=== PATIENT | female | born 1950 | race Caucasian/White ===

== ENCOUNTER 2018-02-28 10:15 | Observation (INO) | payer OTHER ==
[2018-02-28 10:40] VITALS: BMI 47.0
--- NOTE | 2018-02-28 11:07 | PDOC ---
History of Present Illness - General History Source: Patient Exam Limitations: No Limitations - History of Present Illness Initial Comments: This is a 67 year old female with a significant past medical history of a right total knee replacement and HTN, who presents to the emergency department today complaining of chronic RLE pain that has progressively worsen in the past 4 days. Patient notes she had a total knee replacement in [address] Boogie, and has had complications since. Patient notes she had an infection in her right knee following her surgery, and Dr. Ordoñez placed an IVAC on her. She states Dr. Briseno placed a temporary spacer, and upon placing a permanent, she was no longer able to walk unassisted. 5 days ago, patient states she began to experience more significant pain than usual, and went from using a walker to ambulate to not being able to walk at all. Patient complains that the pain is felt from her right groin, and radiates into her right hip and right knee. Patient presents in a wheelchair today. Patient denies any recent trauma or injuries. Allergies: NKDA Surgical hx: TKR in 2007 Social hx: former smoker PCP: Dr. Bullard 02/28/18 11:52 <Mame Mitchell - Last Filed: 02/28/18 21:19> <Nemo Welsh - Last Filed: 03/04/18 21:49> - General Chief Complaint: Pain, Acute Stated Complaint: LEG PAIN Time Seen by Provider: 02/28/18 11:06 Past History <Mame Mitchell - Last Filed: 02/28/18 21:19> - Past Medical History Anemia: Yes Asthma: No Cancer: No Cardiac Disorders: No CVA: No COPD: No CHF: No Dementia: No Diabetes: No GI Disorders: Yes (GERD) Disorders: No HTN: Yes Hypercholesterolemia: No Liver Disease: No Seizures: No Thyroid Disease: No - Surgical History Abdominal Surgery: No Appendectomy: No Cardiac Surgery: No Cholecystectomy: No Lung Surgery: No Neurologic Surgery: No Orthopedic Surgery: Yes (R KNEE REPLACEMENT 01/26) - Immunization History Immunization Up to Date: Yes - Suicide/Smoking/Psychosocial Hx Smoking Status: No Smoking History: Never smoked Have you smoked in the past 12 months: No Number of Cigarettes Smoked Daily: 0 If you are a former smoker, when did you quit?: 2007 Information on smoking cessation initiated: No Hx Alcohol Use: No Drug/Substance Use Hx: No Substance Use Type: None Hx Substance Use Treatment: No <Nemo Welsh - Last Filed: 03/04/18 21:49> - Past Medical History Allergies/Adverse Reactions: Allergies Allergy/AdvReac Type Severity Reaction Status Date / Time No Known Drug Allergies Allergy Verified 02/28/18 10:35 Home Medications: Ambulatory Orders Doxycycline Monohydrate [Monodox] 100 mg PO Q12H 03/01/18 Hydrochlorothiazide [Hctz -] 25 mg PO DAILY 03/02/18 Ibuprofen 400 mg PO BID PRN #20 tablet 03/04/18 Polyethylene Glycol 3350 [Miralax 119 gm Btl -] 17 gm PO BID #1 bottle 03/04/18 Sennosides [Senna -] 1 tab PO HS PRN #30 tablet 03/04/18 Tramadol HCl [Ultram] 50 mg PO TID #9 tablet MDD 3 03/04/18 Review of Systems - Review of Systems Able to Perform ROS?: Yes Comments:: 02/28/18 11:56 GENERAL/CONSTITUTIONAL: No fever or chills. No weakness. HEAD, EYES, EARS, NOSE AND THROAT: No change in vision. No ear pain or discharge. No sore throat. CARDIOVASCULAR: No chest pain or shortness of breath. RESPIRATORY: No cough, wheezing, or hemoptysis. GASTROINTESTINAL: No nausea, vomiting, diarrhea or constipation. GENITOURINARY: No dysuria, frequency, or change in urination. MUSCULOSKELETAL: +RLE pain +right knee pain No neck or back pain. SKIN: No rash NEUROLOGIC: No headache, vertigo, loss of consciousness, or change in strength/ sensation. ENDOCRINE: No increased thirst. No abnormal weight change. HEMATOLOGIC/LYMPHATIC: No anemia, easy bleeding, or history of blood clots. ALLERGIC/IMMUNOLOGIC: No hives or skin allergy. <Mame Mitchell - Last Filed: 02/28/18 21:19> *Physical Exam - Vital Signs Last Vital Signs Temp Pulse Resp BP Pulse Ox 79 16 132/68 100 02/28/18 10:36 02/28/18 10:36 02/28/18 10:36 02/28/18 10:36 - Physical Exam Comments: GENERAL: Awake, alert, and fully oriented, in no acute distress. +able to bear weight and transfer from chair to bed with difficulty. HEAD: No signs of trauma EYES: PERRLA, EOMI, sclera anicteric, conjunctiva clear NECK: Normal ROM, supple, no lymphadenopathy, JVD, or masses. ABDOMEN: Soft, nontender, normoactive bowel sounds. No guarding, no rebound. No masses EXTREMITIES:+pain with right knee flexion. No pain with right hip rotation or flexion. No tenderness to palpation over the right hip or right knee. No deformities at the right hip or right knee. No edema. No clubbing or cyanosis. No cords, or erythema. NEUROLOGICAL: Cranial nerves II through XII grossly intact. Normal speech. SKIN: Warm, Dry, normal turgor, no rashes or lesions noted. 02/28/18 13:38 <Mame Mitchell - Last Filed: 02/28/18 21:19> - Vital Signs Last Vital Signs Temp Pulse Resp BP Pulse Ox 79 16 132/68 100 02/28/18 10:36 02/28/18 10:36 02/28/18 10:36 02/28/18 10:36 <Nemo Welsh - Last Filed: 03/04/18 21:49> ED Treatment Course - LABORATORY CBC & Chemistry Diagram: 02/28/18 13:34 02/28/18 13:34 - RADIOLOGY Radiograph Interpretation: Pelvis CT without contrast. Impression: No CT evidence of fracture. Mild right hip degenerative joint space narrowing. If there is ongoing symptomatology MRI evaluation is suggested, nonemergent versus emergent as clinically indicated. There is a significant MRI contraindication correlation with skeletal scintigraphy may be performed. Reported By: Ezio Zelaya MD 02/28/18 20:09 RAD/HIP PELVIS-RIGHT Impression: No acute fracture or dislocation seen. Incompletely seen right intramedullary fernando. Reported By: Nj Hernandez MD 02/28/18 15:00 02/28/18 21:02 - Consult/PCP Time Called: 15:46 (Spoke with call service, left message and awaiting call back.) Case discussed with personal care physician: Livan Ng <Mame Mitchell - Last Filed: 02/28/18 21:19> - LABORATORY CBC & Chemistry Diagram: 03/01/18 06:45 03/02/18 07:30 <Nemo Welsh - Last Filed: 03/04/18 21:49> Medical Decision Making - Medical Decision Making 03/04/18 21:45 Pt presents to the Ed complaining of R groin pain that appears to be an acute exacerbation of her chronic pain. Patient reports to me that she is unable to walk. Remains unable to walk ( although she can bear weight on both feet and transfer from wheelchair to bed) despite pain control in the ED. No trauma-- xray is negative for fx, labs show no evidence of infection. Will admit for observation for pain control. Social work to see patient in the ED to help with increased services at home upon discharge. <Nemo Welsh - Last Filed: 03/04/18 21:49> *DC/Admit/Observation/Transfer - Attestations Scribe Attestion: 02/28/18 11:57 Documentation prepared by MEENAKSHI Stephens, acting as biomedical equipment tech for Nemo Welsh MD. <Mame Mitchell - Last Filed: 02/28/18 21:19> - Discharge Dispostion Decision to Admit order: Yes <Nemo Welsh - Last Filed: 03/04/18 21:49> Diagnosis at time of Disposition: Groin pain Qualifiers: Laterality: right Qualified Code(s): R10.31 - Right lower quadrant pain - Discharge Dispostion Disposition: NURSING HOME FACILITY Condition at time of disposition: Stable
[2018-02-28 14:01] LABS: EOS % 2.2 % (0-4.5); HEMOGLOBIN 12.9 GM/dL (10.7-15.3); MCH 31.8 pg (25.7-33.7); MCHC 33.1 g/dl (32.0-36.0); MEAN CELL VOLUME 96.2 fl (80-96); MEAN PLT VOLUME 9.8 fl (7.5-11.1); MONO % 4.9 % (3.8-10.2); NEUT % 69.9 % (42.8-82.8); PLATELET COUNT 167 K/MM3 (134-434); RBC 4.06 M/mm3 (3.60-5.2); WHITE BLOOD COUNT 7.8 K/mm3 (4.0-10.0)
[2018-02-28 14:30] LABS: ALBUMIN 4.3 g/dl (3.4-5.0); ALK PHOS 82 U/L (45-117); ANION GAP 6 MMOL/L (8-16); BILIRUBIN,TOTAL 0.8 mg/dL (0.2-1); BLOOD UREA NITROGEN 23 mg/dL (7-18); CALCIUM 9.3 mg/dL (8.5-10.1); CHLORIDE 107 mmol/L (98-107); CO2 27 mmol/L (21-32); CREATININE 0.9 mg/dL (0.55-1.3); GLUCOSE,RANDOM 88 mg/dL (74-106); POTASSIUM 3.7 mmol/L (3.5-5.1); SGOT/AST 64 U/L (15-37); SGPT/ALT 52 U/L (13-61); SODIUM 140 mmol/L (136-145)
[2018-02-28] MEDS ORDERED: morphine CARPU-JECT 4 MG/1 ML DISP.SYRIN IVPUSH ONE (16:15)
--- NOTE | 2018-02-28 18:40 | HP ---
CHIEF COMPLAINT: Right Groin pain PCP: Dr. Bullard HISTORY OF PRESENT ILLNESS: 67 y/o F with PMHx of HTN, Anemia, GERD and Multiple Knee surgeries presents to [facility] with 10/10 R Groin pain. She is unable to further describe the groin pain and cannot quantify how long she has had such pain. She does however acknowledge that the pain has worsened over the past 4-5 days. She has tried Diclofenac without relief and asked her neighbor her to vibratory pile driver her to the hospital. Patient mentions she has called her PCP to make an appointment however she failed to mention how intense this pain is. Additionally, she endorses Right foot numbness for many years, RLE weakness and heaviness. Patient is able to ambulate with a walker around her home. Her neighbors have helped her acquire groceries since she lost her son 3 months ago. Denies any shooting pain down her leg, denies any recent trauma or rash at the site of pain. No recent fevers, chills, chest pain, SOB, nausea, vomiting, diarrhea, constipation. ER course was notable for: (1) Right Hip XRay (2) Morphine 6mg x1 (3) Recent Travel: PAST MEDICAL HISTORY: HTN, Anemia, GERD PAST SURGICAL HISTORY: Multiple Knee Surgeries, Last one on 06/26/17 Social History: Smoking: Former; Quit 2007 Alcohol: Denies Drugs: Denies Occupation: Worked at [employer] for many years Residence: At home Ambulation: With Walker Family History: Unknown Allergies No Known Drug Allergies Allergy (Verified 02/28/18 10:35) HOME MEDICATIONS: Home Medications Medication Instructions Recorded Hydrochlorothiazide [Hctz -] 12.5 mg PO DAILY #0 cap 09/12/13 Ferrous Sulfate [Feosol] 325 mg PO DAILY #30 ud 10/13/13 Meloxicam [Mobic -] 15 mg PO DAILY #14 tablet 10/13/13 Ceftriaxone in Is-Osm Dextrose 2 gm IV DAILY #1 gr 11/14/13 [Ceftriaxone 2 gm Piggyback] REVIEW OF SYSTEMS As per HPI PHYSICAL EXAMINATION Vital Signs - 24 hr 02/28/18 10:36 Pulse Rate 79 Respiratory 16 Rate Blood Pressure 132/68 O2 Sat by Pulse 100 Oximetry (%) GENERAL: A&Ox3, sitting with HOB elevated in Mild distress HEAD: NCAT EYES: EOMI EARS, NOSE, THROAT: Oropharynx clear without exudates. Moist mucous membranes. NECK: No JVD LUNGS: CTAB, No wheezes HEART: Regular rate and rhythm, normal S1 and S2 without murmur ABDOMEN: Obese, Soft, nontender, not distended, + bowel sounds, no guarding MUSCULOSKELETAL: No CVA tenderness. EXTREMITIES: 2+ pulses, No calf tenderness. No peripheral edema. Unable to flex R Hip. L Hip, and Knees B/L FROM. NEUROLOGICAL: Cranial nerves II-XII intact. Normal speech. Able to ambluate with walker. Gross sensation intact globally. 4/5 Muscle strength to Knee flexion/extension, 5/5 muscle strength to handgrip, elbow flexion/extension, Dorsiflexion, plantarflexion. SKIN: Warm, dry Laboratory Results - last 24 hr 02/28/18 02/28/18 13:34 13:34 WBC 7.8 RBC 4.06 Hgb 12.9 Hct 39.0 MCV 96.2 H MCH 31.8 MCHC 33.1 RDW 14.0 Plt Count 167 MPV 9.8 D Absolute Neuts (auto) 5.4 Neutrophils % 69.9 Lymphocytes % 22.0 Monocytes % 4.9 Eosinophils % 2.2 Basophils % 1.0 Nucleated RBC % 0 Sodium 140 Potassium 3.7 Chloride 107 Carbon Dioxide 27 Anion Gap 6 L BUN 23 H Creatinine 0.9 Creat Clearance w eGFR > 60 Random Glucose 88 Calcium 9.3 Total Bilirubin 0.8 AST 64 H ALT 52 Alkaline Phosphatase 82 C-Reactive Protein < 0.3 Total Protein 8.0 Albumin 4.3 Active Medications Docusate Sodium (Colace -) 100 mg PO TID NICHOLAS Enoxaparin Sodium (Lovenox -) 40 mg SQ DAILY NICHOLAS Morphine Sulfate (Morphine Sulfate) 2 mg IVPUSH Q4H PRN PRN Reason: PAIN LEVEL 6-10 Oxycodone HCl (Roxicodone -) 5 mg PO Q4H PRN PRN Reason: PAIN LEVEL 1-3 IMAGING: -R Hip and Pelvis: No acute fracture or dislocation seen. Incompletely seen right intramedullary fernando. ASSESSMENT/PLAN: 67 y/o F with PMHx of HTN, Anemia, GERD and Multiple Knee surgeries presents to [facility] with 10/10 R Groin pain. #Right Hip pain -Consider Muscle Strain, Fracture, OA -R Hip Xray noted above; CT Pelvis without contrast ordered -Morphine, Oxycodone for pain -Will schedule PT once Fx ruled out #HTN -Continue home dose HCTZ #FEN -PO Fluids -Lytes WNL -Sodium Controlled diet #PPx -DVT: Lovenox Dispo: Med-Surg Obs Visit type - Emergency Visit Emergency Visit: Yes ED Registration Date: 02/28/18 Care time: The patient presented to the Emergency Department on the above date and was hospitalized for further evaluation of their emergent condition. - New Patient This patient is new to me today: Yes Date on this admission: 02/28/18 - Critical Care Critical Care patient: No
[2018-02-28] MEDS ORDERED: morphine CARPU-JECT 4 MG/1 ML DISP.SYRIN IVPUSH SCH (18:45)
[2018-02-28] MEDS ORDERED: MORPHINE SULFATE 2 MG/ML VIAL IVPUSH PRN (18:48)
--- NOTE | 2018-02-28 18:50 | PN ---
Teaching Attending Note Name of Resident: Candida Olivarez ATTENDING PHYSICIAN STATEMENT I saw and evaluated the patient. I reviewed the resident's note and discussed the case with the resident. I agree with the resident's findings and plan as documented. SUBJECTIVE: CC: R groin pain HPI: 67 y/o lady with h/o HTN, R knee replacement with complications of infection s/p revision , who presented with R hip pain x 3 days . She is poor historian and gave different story to residents. denies any fever or chills, denies any fall or trauma to the R hip. she denies similar pain in apst. due to her pain she has margot limited in movement. she has been taking diclofenac TID instead of the prescribed BID dosing. she denies any pain in her knees. hip pain is aggravated by movements and absent with rest . OBJECTIVE: NAD , MMM , awake , alert and oriented. Cv ; RRR, no MRG, no JVD lungs: CTAB Abd: obese, soft, NT, ND , NL BS Ext : scar on anterior R knee. TTP in R groin with deep palpation . pain with hip flexion with limited range of motion . no erythema in R groin. ASSESSMENT AND PLAN: 67 y/o lady with h/o HTN, R knee replacement with complications of infection s/ p revision , who presented with R hip pain x 3 days. 1- R hip pain, DDx include OA , fracture, or muscular strain . No suspicion for septic joint ( no fever , low CRP, no leukocytosis ) - morphine and oxycodoe PRN - check CT of hip to r/o Fx - xray reviewed - PT eval . 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
[2018-02-28] MEDS ORDERED: oxyCODONE HCL 5 MG TABLET PO SCH (19:00)
[2018-02-28] MEDS ORDERED: DOXYCYCLINE HYCLATE 100 MG CAPSULE PO ONE (19:26)
[2018-02-28] MEDS: DOXYCYCLINE HYCLATE 100 MG CAPSULE PO SCH (19:44)
[2018-02-28] MEDS ORDERED: oxyCODONE HCL 5 MG TABLET ONE (20:40)
[2018-02-28] MEDS: oxyCODONE HCL 5 MG TABLET PO PRN (20:41)
[2018-02-28] MEDS ORDERED: diphenhydrAMINE HCL 25 MG CAPSULE (FP) PO ONE (23:36)
[2018-02-28] MEDS: DOCUSATE SODIUM 100 MG CAPSULE (FP) PO SCH (23:47)
[2018-03-01] MEDS: DOCUSATE SODIUM 100 MG CAPSULE (FP) PO SCH ×3 (06:11→21:33)
[2018-03-01 07:52] LABS: BASO % 0.6 % (0-2.0); EOS % 4.4 % (0-4.5); HEMATOCRIT 35.8 % (32.4-45.2); LYMPH % 24.7 % (8-40); MCH 31.9 pg (25.7-33.7); MCHC 33.4 g/dl (32.0-36.0); MEAN CELL VOLUME 95.5 fl (80-96); MEAN PLT VOLUME 9.5 fl (7.5-11.1); MONO % 6.8 % (3.8-10.2); NEUT % 63.5 % (42.8-82.8); PLATELET COUNT 133 K/MM3 (134-434); RBC 3.75 M/mm3 (3.60-5.2); RDW 13.7 % (11.6-15.6); WHITE BLOOD COUNT 6.8 K/mm3 (4.0-10.0)
[2018-03-01 08:12] LABS: ALBUMIN 3.7 g/dl (3.4-5.0); ALK PHOS 69 U/L (45-117); ANION GAP 9 MMOL/L (8-16); BILIRUBIN,TOTAL 0.9 mg/dL (0.2-1); BLOOD UREA NITROGEN 22 mg/dL (7-18); CALCIUM 9.1 mg/dL (8.5-10.1); CHLORIDE 109 mmol/L (98-107); CO2 24 mmol/L (21-32); CREATININE 0.8 mg/dL (0.55-1.3); GLUCOSE,RANDOM 87 mg/dL (74-106); MAGNESIUM 2.3 mg/dL (1.8-2.4); PHOSPHOROUS 3.2 mg/dL (2.5-4.9); POTASSIUM 3.2 mmol/L (3.5-5.1); SGOT/AST 53 U/L (15-37); SGPT/ALT 44 U/L (13-61); SODIUM 141 mmol/L (136-145); TOT PROT 6.7 g/dl (6.4-8.2)
[2018-03-01] MEDS: DOXYCYCLINE HYCLATE 100 MG CAPSULE PO SCH ×2 (09:28→17:53)
[2018-03-01] MEDS: ENOXAPARIN NA (PORCINE) 40 MG/0.4 ML DISP.SYRIN SQ SCH (09:28)
[2018-03-01] MEDS ORDERED: POTASSIUM CHLORIDE TABS 10 MEQ TABLET.ER (FP) PO ONE (11:33)
--- NOTE | 2018-03-01 13:33 | PN ---
Teaching Attending Note Name of Resident: Candida Olivarez ATTENDING PHYSICIAN STATEMENT I saw and evaluated the patient. I reviewed the resident's note and discussed the case with the resident. I agree with the resident's findings and plan as documented. SUBJECTIVE: No fever or chills. hip pain is still present was still able to ambulate to bathroom. OBJECTIVE: NAD , MMM , awake , alert and oriented. Cv ; RRR, no MRG, no JVD lungs: CTAB Abd: obese, soft, NT, ND , NL BS Ext : scar on anterior R knee with no erythema , edema or tenderness . TTP in R groin with deep palpation. pain with hip flexion with limited range of motion . no erythema in R groin. R knee flexion in flat position only ASSESSMENT AND PLAN: 67 y/o lady with h/o HTN, R knee replacement with complications of infection s/ p revision , who presented with R hip pain x 3 days. 1- R hip pain, likely due to OA. No Fx on xray. dc morphine and add tramadol and tylenol asked not to overuse nSAIds as out pt due to risk fro renal injury 2- h/o HTN: cont HCTZ 3- H/o R knee prosthetic infection : cont suppressive treatment with doxy DC home . VNS and home PT. PT input noted
[2018-03-01] MEDS ORDERED: POTASSIUM CHLORIDE ORAL LIQUID 20 MEQ/15 ML PO ONE (14:00)
[2018-03-01] MEDS: oxyCODONE HCL 5 MG TABLET PO PRN (17:53)
--- NOTE | 2018-03-01 18:12 | PN ---
Physical Exam: SUBJECTIVE: Patient seen and examined this morning at bedside. No new complaints. Continues to complain of pain but has ambulated to the restroom with the walker. OBJECTIVE: Vital Signs Period Temp Pulse Resp BP Sys/Dahl Pulse Ox Last 24 Hr 98.0 F-98.9 F 18-86 16-20 128-157/61-88 95-100 GENERAL: A&Ox3, NAD HEAD: NCAT EYES: EOMI ENT: Oropharynx clear without exudates. Moist mucous membranes. NECK: No JVD LUNGS: CTAB, No wheezes HEART: Regular rate and rhythm, normal S1 and S2 without murmur ABDOMEN: Obese, Soft, not distended, + bowel sounds, no guarding. Tender to palpation in the R Groin, No Rash or erythema present EXTREMITIES: 2+ pulses, No calf tenderness. No peripheral edema. Unable to flex R Hip. L Hip, and Knees B/L FROM. NEUROLOGICAL: Cranial nerves II-XII intact. Normal speech. Able to ambluate with walker. Gross sensation intact globally. 4/5 Muscle strength to Knee flexion/extension, 5/5 muscle strength to handgrip, elbow flexion/extension, Dorsiflexion, plantarflexion. SKIN: Warm, dry Laboratory Results - last 24 hr 03/01/18 03/01/18 06:45 06:45 WBC 6.8 RBC 3.75 Hgb 12.0 Hct 35.8 MCV 95.5 MCH 31.9 MCHC 33.4 RDW 13.7 Plt Count 133 L D MPV 9.5 Absolute Neuts (auto) 4.3 Neutrophils % 63.5 Lymphocytes % 24.7 Monocytes % 6.8 Eosinophils % 4.4 D Basophils % 0.6 Nucleated RBC % 0 Sodium 141 Potassium 3.2 L Chloride 109 H Carbon Dioxide 24 Anion Gap 9 BUN 22 H Creatinine 0.8 Creat Clearance w eGFR > 60 Random Glucose 87 Calcium 9.1 Phosphorus 3.2 Magnesium 2.3 Total Bilirubin 0.9 AST 53 H ALT 44 Alkaline Phosphatase 69 Total Protein 6.7 Albumin 3.7 Active Medications Docusate Sodium (Colace -) 100 mg PO TID [facility] Last Admin: 03/01/18 14:35 Dose: 100 mg Doxycycline Hyclate (Vibramycin -) 100 mg PO 1000,1800 [facility] Last Admin: 03/01/18 17:53 Dose: 100 mg Enoxaparin Sodium (Lovenox -) 40 mg SQ DAILY NICHOLAS Last Admin: 03/01/18 09:28 Dose: 40 mg Oxycodone HCl (Roxicodone -) 5 mg PO Q4H PRN PRN Reason: PAIN LEVEL 1-3 Last Admin: 03/01/18 17:53 Dose: 5 mg IMAGING: -R Hip and Pelvis: No acute fracture or dislocation seen. Incompletely seen right intramedullary fernando. -CT Pelvis without contrast: No CT evidence of fracture. Mild right hip degenerative joint space narrowing. If there is ongoing symptomatology MRI evaluation is suggested, nonemergent versus emergent as clinically indicated. There is a significant MRI contraindication correlation with skeletal scintigraphy may be performed. ASSESSMENT/PLAN: 67 y/o F with PMHx of HTN, Anemia, GERD and Multiple Knee surgeries presents to [facility] with 10/10 R Groin pain. #Right Hip pain -Likely due to OA -R Hip Xray, CT Pelvis noted above -Tramadol, Tylenol for pain -Physical Therapy #HTN -HCTZ #FEN -PO Fluids -Lytes WNL -Sodium Controlled diet #PPx -DVT: Lovenox Dispo: d/c pending placement Visit type - Emergency Visit Emergency Visit: Yes ED Registration Date: 02/28/18 Care time: The patient presented to the Emergency Department on the above date and was hospitalized for further evaluation of their emergent condition. - New Patient This patient is new to me today: No - Critical Care Critical Care patient: No - Discharge Referral Referred to [facility] Med P.C.: No
[2018-03-01] MEDS ORDERED: POLYETHYLENE GLYCOL 3350 119 GM BTL PO ONE (20:30)
[2018-03-01] MEDS ORDERED: SENNOSIDES 8.6MG TABLET (FP) PO ONE (20:30)
[2018-03-02] MEDS: DOCUSATE SODIUM 100 MG CAPSULE (FP) PO SCH ×3 (06:03→21:38)
[2018-03-02 08:51] LABS: ALBUMIN 3.8 g/dl (3.4-5.0); ALK PHOS 72 U/L (45-117); ANION GAP 6 MMOL/L (8-16); BILIRUBIN,TOTAL 0.8 mg/dL (0.2-1); BLOOD UREA NITROGEN 23 mg/dL (7-18); CALCIUM 9.2 mg/dL (8.5-10.1); CHLORIDE 109 mmol/L (98-107); CO2 26 mmol/L (21-32); CREATININE 0.8 mg/dL (0.55-1.3); GLUCOSE,RANDOM 89 mg/dL (74-106); MAGNESIUM 2.2 mg/dL (1.8-2.4); PHOSPHOROUS 3.2 mg/dL (2.5-4.9); POTASSIUM 3.8 mmol/L (3.5-5.1); SGOT/AST 52 U/L (15-37); SGPT/ALT 46 U/L (13-61); SODIUM 141 mmol/L (136-145); TOT PROT 6.9 g/dl (6.4-8.2)
[2018-03-02] MEDS ORDERED: SENNOSIDES 8.6MG TABLET (FP) PO PRN (08:56)
[2018-03-02] MEDS: DOXYCYCLINE HYCLATE 100 MG CAPSULE PO SCH ×2 (09:35→18:01)
[2018-03-02] MEDS: POLYETHYLENE GLYCOL 3350 119 GM BTL PO SCH ×2 (09:36→21:39)
--- NOTE | 2018-03-02 09:45 | PN ---
Teaching Attending Note Name of Resident: Antonio Wilder ATTENDING PHYSICIAN STATEMENT I saw and evaluated the patient. I reviewed the resident's note and discussed the case with the resident. I agree with the resident's findings and plan as documented. SUBJECTIVE: No fever or chills . No abd pain. R hip pain , tolerable . ambulating with walker OBJECTIVE: NAD, MMM , awake , alert and oriented. Cv ; RRR, no MRG, no JVD lungs: CTAB Ext : scar on anterior R knee with no erythema, edema or tenderness . TTP in R groin with deep palpation. pain with hip flexion with limited range of motion . no erythema in R groin. R knee flexion in flat position only ASSESSMENT AND PLAN: 67 y/o lady with h/o HTN, R knee replacement with complications of infection s/ p revision , who presented with R hip pain x 3 days. 1- R hip pain, due to OA. No Fx on xray. 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
[2018-03-02] MEDS: ENOXAPARIN NA (PORCINE) 40 MG/0.4 ML DISP.SYRIN SQ SCH (10:31)
--- NOTE | 2018-03-02 11:41 | PN ---
Physical Exam: SUBJECTIVE: Patient seen and examined at bed side , no acute events over night , still no BM , still complain of right hip pain but better compare to yesterday. OBJECTIVE: Vital Signs Period Temp Pulse Resp BP Sys/Dahl Pulse Ox Last 24 Hr 98 F-98.4 F 18- 18-20 125-146/51-88 98-100 GENERAL: AAOx3 in mild pain HEAD: NC/AT EYES: EOMI, Conjunctiva clear, sclera anicteric ENT: moist mucous membrane NECK: Supple, no JVD LUNGS: CTA B/L, no crackles no wheezing no accessory muscle use. HEART: RRR, NSR, normal s1, s2, murmur no M/R/G ABDOMEN: Obese, Soft, ND, NT, +BS 4 Q, no CVA Tenderness LOWER EXTREMITIES: no edema, +2DP pulse,right groin pain , NEUROLOGICAL: No focal deficit. Normal speech. gait not observed. 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 PSYCHIATRIC: Cooperative. Good eye contact. Appropriate mood and affect. SKIN: Warm, dry, Laboratory Results - last 24 hr 03/02/18 07:30 Sodium 141 Potassium 3.8 Chloride 109 H Carbon Dioxide 26 Anion Gap 6 L BUN 23 H Creatinine 0.8 Creat Clearance w eGFR > 60 Random Glucose 89 Calcium 9.2 Phosphorus 3.2 Magnesium 2.2 Total Bilirubin 0.8 AST 52 H ALT 46 Alkaline Phosphatase 72 Total Protein 6.9 Albumin 3.8 Active Medications Generic Name Dose Route Start Last Admin Trade Name Freq PRN Reason Stop Dose Admin Acetaminophen 325 mg 03/02/18 10:45 Tylenol - PO Q6H PRN PAIN Docusate Sodium 100 mg 02/28/18 22:00 03/02/18 06:03 Colace - PO 100 mg TID NICHOLAS Administration Doxycycline Hyclate 100 mg 02/28/18 19:00 03/02/18 09:35 Vibramycin - PO 100 mg 1000,1800 NICHOLAS Administration Enoxaparin Sodium 40 mg 03/01/18 10:00 03/02/18 10:31 Lovenox - SQ 40 mg DAILY NICHOLAS Administration Fluconazole 50 mg 03/02/18 22:00 Diflucan - PO BID NICHOLAS Hydrochlorothiazide 12.5 mg 03/02/18 11:45 Hctz - PO DAILY NICHOLAS Ketorolac Tromethamine 10 mg 03/02/18 09:13 Toradol PO 03/07/18 13:59 TID PRN PAIN LEVEL 1-5 Polyethylene Glycol 17 gm 03/02/18 10:00 03/02/18 09:36 Miralax (For Daily Use) - PO 17 grams BID NICHOLAS Administration Senna 2 tab 03/02/18 08:56 Senna - PO HS PRN CONSTIPATION CBC, BMP 03/01/18 06:45 03/02/18 07:30 IMAGING: -R Hip and Pelvis: No acute fracture or dislocation seen. Incompletely seen right intramedullary fernando. -CT Pelvis without contrast: No CT evidence of fracture. Mild right hip degenerative joint space narrowing. If there is ongoing symptomatology MRI evaluation is suggested, nonemergent versus emergent as clinically indicated. There is a significant MRI contraindication correlation with skeletal scintigraphy may be performed. ASSESSMENT/PLAN: 67 y/o F with PMHx of HTN, Anemia, GERD and Multiple Knee surgeries presents to [facility] [place] with 10/10 R Groin pain. #Right Hip pain due to OA * pain control with Tylenol and toradol * avoid narcotics * PT * Pending rehab placement #HTN * resume home meds HCTZ #FEN * no standing fluids * monitor lytes * Sodium Controlled diet #PPx * DVT: Lovenox 40 mg SQ daily #Dispo: * pending rehab placement Visit type - Emergency Visit Emergency Visit: Yes ED Registration Date: 02/28/18 Care time: The patient presented to the Emergency Department on the above date and was hospitalized for further evaluation of their emergent condition. - New Patient This patient is new to me today: No - Critical Care Critical Care patient: No - Discharge Referral Referred to [facility] Med P.C.: No
[2018-03-02] MEDS: HYDROCHLOROTHIAZIDE 12.5 MG CAPSULE (FP) PO SCH (13:12)
[2018-03-02] MEDS ORDERED: FLUCONAZOLE 50 MG TABLET PO SCH (22:00)
[2018-03-03] MEDS: ACETAMINOPHEN 325 MG TABLET (FP) PO PRN ×2 (02:21→22:44)
[2018-03-03] MEDS ORDERED: PT OWN MED DRAWER 7, Y5N ONE (05:32)
[2018-03-03] MEDS: DOCUSATE SODIUM 100 MG CAPSULE (FP) PO SCH ×3 (05:36→22:18)
[2018-03-03] MEDS: KETOROLAC TROMETHAMINE 10 MG TABLET PO PRN (05:36)
[2018-03-03] MEDS: HYDROCHLOROTHIAZIDE 12.5 MG CAPSULE (FP) PO SCH (09:23)
[2018-03-03] MEDS: DOXYCYCLINE HYCLATE 100 MG CAPSULE PO SCH ×2 (09:23→17:35)
[2018-03-03] MEDS: ENOXAPARIN NA (PORCINE) 40 MG/0.4 ML DISP.SYRIN SQ SCH (09:23)
[2018-03-03] MEDS: POLYETHYLENE GLYCOL 3350 119 GM BTL PO SCH ×2 (09:30→22:18)
--- NOTE | 2018-03-03 14:55 | PN ---
Progress Note (short form) - Note Progress Note: Subjective: no fever or chills , hip pain improved . Objective: Vital Signs: Last Vital Signs Temp Pulse Resp BP Pulse Ox 98.1 F 76 19 125/56 L 100 03/03/18 14:05 03/03/18 14:05 03/03/18 14:05 03/03/18 14:05 03/03/18 09:23 Physical Exam: NAD, MMM , awake , alert and oriented. sitting in [place] no facial droop. ASSESSMENT AND PLAN: 67 y/o lady with h/o HTN, R knee replacement with complications of infection s/ p revision , who presented with R hip pain x 3 days. 1- R hip pain, due to OA. 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 - New Patient This patient is new to me today: No - Critical Care Critical Care patient: No
[2018-03-04] MEDS: DOCUSATE SODIUM 100 MG CAPSULE (FP) PO SCH ×2 (05:37→15:12)
[2018-03-04] MEDS: POLYETHYLENE GLYCOL 3350 119 GM BTL PO SCH (09:43)
[2018-03-04] MEDS ORDERED: PT OWN MED DRAWER 7, Y5N ONE ×2 (09:46→11:12)
[2018-03-04] MEDS: KETOROLAC TROMETHAMINE 10 MG TABLET PO PRN (09:51)
[2018-03-04] MEDS: DOXYCYCLINE HYCLATE 100 MG CAPSULE PO SCH ×2 (09:51→17:03)
[2018-03-04] MEDS: ENOXAPARIN NA (PORCINE) 40 MG/0.4 ML DISP.SYRIN SQ SCH (09:51)
[2018-03-04] MEDS: HYDROCHLOROTHIAZIDE 12.5 MG CAPSULE (FP) PO SCH (09:51)
--- NOTE | 2018-03-04 11:20 | PN ---
Teaching Attending Note Name of Resident: Beronica Singh ATTENDING PHYSICIAN STATEMENT I saw and evaluated the patient. I reviewed the resident's note and discussed the case with the resident. I agree with the resident's findings and plan as documented. SUBJECTIVE: No fever or chills . No abd pain. no SOB or CP . has pain in R hip OBJECTIVE: NAD, MMM , awake , alert and oriented. no facial droop. CV: RRR Lungs: CTAB Ext : obese , no edema . limited range of motion of R hip due to pain ASSESSMENT AND PLAN: 67 y/o lady with h/o HTN, R knee replacement with complications of infection s/ p revision , who presented with R hip pain x 3 days. 1- R hip pain, due to OA. No Fx tylenol and tramadol for pain . can cont after dc 2- h/o HTN: cont HCTZ 3- H/o R knee prosthetic infection: cont suppressive treatment with doxy DC pending rehab bed . hopefully today
[2018-03-04 17:17] VITALS: BP 135/74; PULSE 77; TEMP 98
--- NOTE | 2018-03-04 19:00 | DS ---
Physical Exam: SUBJECTIVE: Patient seen and examined at bedside. Able to ambulate today using walker. Still c/o continued pain in R hip. OBJECTIVE: Vital Signs Period Temp Pulse Resp BP Sys/Dahl Pulse Ox Last 24 Hr 97.1 F-98.7 F 68-80 18-20 119-135/58-74 100-100 PHYSICAL EXAM GENERAL: The patient is pleasant. in NAD HEAD: Normal with no signs of trauma. EYES: PERRL, extraocular movements intact, sclera anicteric ENT: Ears normal, nares patent, oropharynx clear without exudates, moist mucous membranes. NECK: Trachea midline, supple. LUNGS: Distant Breath sounds. equal, clear to auscultation bilaterally, no wheezes, no crackles, no accessory muscle use. HEART: Regular rate and rhythm, S1, S2 without murmur, rub or gallop. ABDOMEN: Soft, obese nontender, nondistended, normoactive bowel sounds EXTREMITIES: +R hip: diffusely TTP, difficulty with active and passive ROM concerning hip flexion and extension. 2+ pt pulses, warm, well-perfused, no edema. NEUROLOGICAL: Cranial nerves II through XII grossly intact. Normal speech, gait not observed. PSYCH: Normal mood, normal affect. SKIN: Warm, dry LABS 02/28/18 02/28/18 03/01/18 13:34 13:34 06:45 WBC 7.8 6.8 Hgb 12.9 12.0 Hct 39.0 35.8 Plt Count 167 133 L D Sodium 140 Potassium 3.7 Chloride 107 BUN 23 H Creatinine 0.9 AST 64 H ALT 52 C-Reactive Protein < 0.3 03/01/18 03/02/18 06:45 07:30 WBC Hgb Hct Plt Count Sodium 141 141 Potassium 3.2 L 3.8 Chloride 109 H 109 H BUN 22 H 23 H Creatinine 0.8 0.8 AST 53 H 52 H ALT 44 46 C-Reactive Protein IMAGING: -R Hip and Pelvis XR: No acute fracture or dislocation seen. Incompletely seen right intramedullary fernando. -CT Pelvis without contrast: No CT evidence of fracture. Mild right hip degenerative joint space narrowing. HOSPITAL COURSE: Date of Admission:02/28/18 Date of Discharge: 03/04/18 Admit diagnosis: R hip pain likely 2/2 OA 67 y/o F with PMH HTN, Anemia, GERD and multiple knee surgeries who presented to [facility] ED with 10/10 R Groin pain. As per pt, her pain worsened over the past 4- 5 days prior to admission. She has tried Diclofenac without relief. During pt's hospitalization, she had R hip/pelvis imaging which revealed no acute fx or dislocation. With incompletely seen R intramedullary fernando. CT pelvis w/o contrast revealed mild R hip degenerative jt space narrowing likely 2/2 OA. Pt managed on tylenol and tramadol. On d/c, sent to rehab on ibuprofen and tramadol for pain, bowel regimen. Minutes to complete discharge: 40 Discharge Summary Reason For Visit: INGUINAL PAIN Condition: Stable - Instructions Diet, Activity, Other Instructions: You were admitted to the hospital because you felt some Right sided groin pain. you have osteoarthritis in you rhip, there is no fracture Your symptoms has improved with pain medication and physical therapy You will be discharged to rehab facility to strengthen your muscle. Physician Follow ups 1. PCP: Dr. Bullard in one week, please call to schedule follow up 2. Orthopedics at [facility] in 2 weeks to further manage your Hip pain Please continue all other medications as prescribed. Please take Tylenol and tramadol for pain as needed only for 3 days Please make sure you have daily bowel movement. You can use miralax or senna as needed for constipation. Please return to the ER if you have any signs or symptoms of chest pain, shortness of breath, uncontrollable fever, chills, nausea, vomiting, numbness, tingling, or weakness in any part of your body, changes in vision, or slurred speech. Please return to the ER if symptoms persist, worsen, or new symptoms arise. Referrals: Livan Ng MD [Primary Care Provider] - 1 Week Disposition: [facility] - Home Medications Comprehensive Discharge Medication List: Ambulatory Orders Doxycycline Monohydrate [Monodox] 100 mg PO Q12H 03/01/18 Hydrochlorothiazide [Hctz -] 25 mg PO DAILY 03/02/18 Ibuprofen 400 mg PO BID PRN #20 tablet 03/04/18 Polyethylene Glycol 3350 [Miralax 119 gm Btl -] 17 gm PO BID #1 bottle 03/04/18 Sennosides [Senna -] 1 tab PO HS PRN #30 tablet 03/04/18 Tramadol HCl [Ultram] 50 mg PO TID #9 tablet MDD 3 03/04/18 This patient is new to me today: Yes Date on this admission: 03/04/18 Emergency Visit: No Critical Care patient: No - Discharge Referral Referred to [facility] Med P.C.: No
== END 2018-03-04 17:58 ==
LOC: JER 10:15 → JERBED 17:03 → J8W 21:16
PROVIDERS: ADMIT Internal Medicine; ATTEND Internal Medicine
PROC: 3E033NZ Introduction of Analgesics, Hypnotics, Sedatives into Peripheral Vein, Percutaneous Approach (ICD-10-PCS; principal; 2018-02-28)
PROC: 3E013GC Introduction of Other Therapeutic Substance into Subcutaneous Tissue, Percutaneous Approach (ICD-10-PCS; 2018-02-28)
DX: M25.551 Pain in right hip (principal); R10.30 Lower abdominal pain, unspecified; I10 Essential (primary) hypertension; D64.9 Anemia, unspecified; K21.9 Gastro-esophageal reflux disease without esophagitis; G89.29 Other chronic pain
CPT/HCPCS: 36415; 72192-TC; 73523-TC-FY; 80053; 83735; 84100; 85025; 86140; 96372; 96374; 97116-GP; 97161-GP; 99282-25; G0378

== ENCOUNTER 2018-09-02 08:51 | Observation (INO) | payer OTHER ==
[2018-09-02] MEDS ORDERED: ACETAMINOPHEN 325 MG TABLET (FP) PO ONE ×2 (09:37→10:02)
--- NOTE | 2018-09-02 09:40 | PDOC ---
History of Present Illness - General Chief Complaint: Injury Stated Complaint: FALL Time Seen by Provider: 09/02/18 09:29 History Source: Patient Exam Limitations: No Limitations - History of Present Illness Initial Comments: 09/02/18 09:38 HPI 68 YOF with PMH HTN, Anemia, GERD and arthritis s/p multiple knee surgeries who presented to [facility] ED with 10/10 Left Groin pain. As per pt, left groin pain 2/2 losing her balance last night while getting to bed. she subsequently fell down slowly, but no LOC or head trauma or prodromal sx such as HANLEY, dizziness, cp, sob , AP, back pain or neuro changes/paresthesias/weakness. she admits she had insomnia last night, thus she took some Ambien prior to event.She has tried Diclofenac without relief, occasionally uses tramadol for pain. last admission to [facility] in 02/2018 for rt groin/hip pain 2/2 arthritis. During pt 's hospitalization, she had R hip/pelvis imaging which revealed no acute fx or dislocation. With incompletely seen R intramedullary fernando. CT pelvis w/o contrast revealed mild R hip degenerative jt space narrowing likely 2/2 OA. Denies fever, chills, chest pain, SOB, palpitation, dizziness, weakness, N, V, D , abdominal pain, bladder and bowel problems, leg swelling, No sick contacts or travel. No new changes in medications. no other medication use last night aside from Ambien. Allergies: None Past Medical History: as documented in EMR/HPI Social history: Lives at home. uses walker for assistance. No tobacco, ETOH or drug use. Surgical history: TKR in 2007 Meds: as documented in EMR PMD: Lan 09/02/18 09:39 09/02/18 09:41 09/02/18 09:50 Past History - Past Medical History Allergies/Adverse Reactions: Allergies Allergy/AdvReac Type Severity Reaction Status Date / Time No Known Drug Allergies Allergy Verified 09/02/18 09:03 Home Medications: Ambulatory Orders RX: Doxycycline Monohydrate [Monodox] 100 mg PO Q12H 03/01/18 RX: Hydrochlorothiazide [Hctz -] 25 mg PO DAILY 03/02/18 RX: Ibuprofen 400 mg PO BID PRN #20 tablet 03/04/18 RX: Polyethylene Glycol 3350 [Miralax 119 gm Btl -] 17 gm PO BID #1 bottle 03/04 RX: Sennosides [Senna -] 1 tab PO HS PRN #30 tablet 03/04/18 RX: Tramadol HCl [Ultram] 50 mg PO TID #9 tablet MDD 3 03/04/18 RX: Diclofenac Sodium 50 mg PO DAILY 09/02/18 Anemia: Yes Asthma: No Cancer: No Cardiac Disorders: No CVA: No COPD: No CHF: No Dementia: No Diabetes: No GI Disorders: Yes (GERD) Disorders: No HTN: Yes Hypercholesterolemia: No Liver Disease: No Seizures: No Thyroid Disease: No - Surgical History Abdominal Surgery: No Appendectomy: No Cardiac Surgery: No Cholecystectomy: No Lung Surgery: No Neurologic Surgery: No Orthopedic Surgery: Yes (R KNEE REPLACEMENT 01/26) - Immunization History Immunization Up to Date: Yes - Suicide/Smoking/Psychosocial Hx Smoking Status: No Smoking History: Never smoked Have you smoked in the past 12 months: No Number of Cigarettes Smoked Daily: 0 If you are a former smoker, when did you quit?: 2007 Information on smoking cessation initiated: No Hx Alcohol Use: No Drug/Substance Use Hx: No Substance Use Type: None Hx Substance Use Treatment: No Review of Systems - Review of Systems Able to Perform ROS?: Yes Comments:: 09/02/18 09:39 Review of systems Constitutional: no fevers or chills. HEENT: no headache or dizziness. No visual/hearing disturbances. CVS: no cp or syncope. Resp: no sob. No cough. Gastrointestinal: no abdominal pain, nausea or vomiting. Genitourinary: no urinary sx, hematuria. MUSCULOSKELETAL: No joint pain and swelling. No neck or back pain. +groin and pelvis pain. SKIN: no redness or skin changes, no discharge, no rash. No wounds. Hematologic: no easy bruising/bleeding. NEUROLOGIC: No headache, dizziness, LOC or altered mental status. No weakness, numbness or tingling. Allergic/Immunologic: no allergies All other systems reviewed and negative, or as documented in HPI. 09/02/18 09:46 *Physical Exam - Vital Signs Last Vital Signs Temp Pulse Resp BP Pulse Ox 97.7 F 95 H 16 156/76 100 09/02/18 08:51 09/02/18 08:51 09/02/18 08:51 09/02/18 08:51 09/02/18 08:51 - Physical Exam Comments: 09/02/18 09:39 Physical exam: General: Well appearing, awake and alert, NAD. obese HEENT: NCAT, PERRL, EOMI, clear conjunctiva, anicteric, moist mucus membranes, clear oropharynx, no oral lesions.. Neck: neck supple, FROM. no midline C spine tenderness Resp: CTAB, normal and even respirations, no respiratory distress CVS: RRR, no murmurs, 2+ peripheral pulses throughout, no peripheral edema Abdomen: soft, NTND, no peritoneal signs. obese Back: nontender, normal inspection and ROM down C-T-L spine. MSK: no edema, HERNANDEZ x4, ROM intact. No clubbing or cyanosis. normal bulk and tone. pelvis stable, FROM at the prox hip joints bilaterally on active rotation/ adduction/abduction. wiggles toes bilaterally. right anterior knee vertical scar well healed. no thigh, knee or distal extremity tenderness. Neg SLR Neuro: alert, no focal neuro deficits. speech clear, wiggles toes, SILT in all extrem, L1-S1 distribution. 5/5 plantar and dorsiflexion. Skin: warm and well perfused, cap refill <2 sec, normal color; no wounds, no ecchymosis 09/02/18 09:47 09/02/18 09:49 Heart Score/ECG Review #1 ECG reviewed & interpreted by me at: 14:55 General ECG Interpretation: Sinus Rhythm, Normal Rate, Normal Intervals Compared to previous ECG there are: No significant change 09/02/18 15:29 EKG normal sinus rhythm at 77 bpm, no interval abnormalities, narrow QRS, ST and T wave segments and morphology normal. Nonspecific T wave abnormalities ED Treatment Course - LABORATORY CBC & Chemistry Diagram: 09/02/18 14:26 09/02/18 14:03 - RADIOLOGY Radiology Studies Ordered: Category Date Time Status HIP & PELVIS-LEFT [RAD] Stat Radiology 09/02/18 09:37 Ordered Medical Decision Making - Medical Decision Making 09/02/18 09:48 hpi as documented. Prior notes reviewed, including admissions, discharges and consultations. VS reviewed wnl ddx. hip/pelvis fx, contusion, no prodromal sx, no neuro deficits. doubt head injury/bleed. secondary survey wnl, analgesia here with tylenol. likely medication effect precipitating fall. cautioned on use of sleeping agents and sedatives such as ambien, tramadol and opioids/muscle relaxant. 09/02/18 14:04 trial of ambulation. uses walker device. unable to ambulate pt feels dizzy when she gets up, unsafe for discharge home as she lives alone and aid not available as she is going home. EKG NSR, labs and lytes wnl, LFTs at baseline. UA pending for infection. admit to hospitalist service, basic labs and UA. pain control, avoid narcotics due to age and sedating effects and fall risk. admit to Dr Burgess service 09/02/18 14:16 09/02/18 15:28 *DC/Admit/Observation/Transfer Diagnosis at time of Disposition: Left hip pain, Fall - Discharge Dispostion Condition at time of disposition: Guarded Decision to Admit order: Yes Decision to Admit order Date/Time: 09/02/18 14:16 Decision to Admit Order Category Date Time Status Decision to Admit to Hospital Routine Admission 09/02/18 14:13 Ordered - Referrals Referrals: Livan Ng MD [Primary Care Provider] - - Patient Instructions - Post Discharge Activity
[2018-09-02] MEDS ORDERED: ACETAMINOPHEN 325 MG TABLET (FP) ONE ×2 (10:04→18:43)
[2018-09-02 14:53] LABS: BASO % 0.5 % (0-2.0); EOS % 2.9 % (0-4.5); HEMATOCRIT 35.5 % (32.4-45.2); HEMOGLOBIN 11.9 GM/dL (10.7-15.3); LYMPH % 19.6 % (8-40); MCH 31.6 pg (25.7-33.7); MCHC 33.5 g/dl (32.0-36.0); MEAN CELL VOLUME 94.4 fl (80-96); MEAN PLT VOLUME 8.7 fl (7.5-11.1); MONO % 6.6 % (3.8-10.2); NEUT % 70.4 % (42.8-82.8); PLATELET COUNT 187 K/MM3 (134-434); RBC 3.76 M/mm3 (3.60-5.2); WHITE BLOOD COUNT 8.9 K/mm3 (4.0-10.0)
[2018-09-02 15:17] LABS: BILIRUBIN,TOTAL 0.5 mg/dL (0.2-1); CALCIUM 9.6 mg/dL (8.5-10.1); CREATININE 0.8 mg/dL (0.55-1.3); POTASSIUM 3.7 mmol/L (3.5-5.1); TOT PROT 7.2 g/dl (6.4-8.2)
[2018-09-02] MEDS ORDERED: ACETAMINOPHEN 325 MG TABLET (FP) PO SCH (16:15)
--- NOTE | 2018-09-02 16:28 | HP ---
CHIEF COMPLAINT: Inability to walk due to pain PCP: Berenice HISTORY OF PRESENT ILLNESS: 68 yo female with PMH HTN, osteoarthritis admitted with left hip pain and inability to ambulate following a fall at home with no LOC or trauma. She states she lives at home alone with a visiting nurse that comes for 5 hours a day. In the afternoons she is alone, and she states that she is able to ambulate on her own however she feels unsteady and often prays that God will not allow her to fall. Last night she took an ambien for sleep which she does not take consistently and attempted to ambulate to the bathroom. She describes her fall as sliding to the ground and landing on her knees. She denies any LOC or head trauma. She states she does not have frequent falls but often feels unsteady. She recently lost her son last year and does not have a or any other family that can help care for her. Of note she follows with Dr. Jain for ortho who has performed numerous revisions of her right knee most recently replacing an abx spacer last year. She is on doxy chronically at home. She recently started physical therapy twice weekly however only started that last week. ER course was notable for: (1) CT pelvis and LLE without any fracture, only arthritic changes noted (2) (3) Recent Travel: denies PAST MEDICAL HISTORY: as above PAST SURGICAL HISTORY: Multiple right knee operations Social History: Smokin-30 year smoker (1pack per week) quit 15 years ago Alcohol: Denies Drugs: Denies Family History: Allergies No Known Drug Allergies Allergy (Verified 09/02/18 09:03) HOME MEDICATIONS: Home Medications Medication Instructions Recorded Doxycycline Monohydrate [Monodox] 100 mg PO Q12H 03/01/18 Hydrochlorothiazide [Hctz -] 25 mg PO DAILY 03/02/18 Ibuprofen 400 mg PO BID PRN #20 tablet 03/04/18 Polyethylene Glycol 3350 [Miralax 17 gm PO BID #1 bottle 03/04/18 119 gm Btl -] Sennosides [Senna -] 1 tab PO HS PRN #30 tablet 03/04/18 Tramadol HCl [Ultram] 50 mg PO TID #9 tablet MDD 3 03/04/18 Diclofenac Sodium 50 mg PO DAILY 09/02/18 REVIEW OF SYSTEMS CONSTITUTIONAL: Absent: fever, chills, diaphoresis, generalized weakness, malaise, loss of appetite, weight change HEENT: Absent: rhinorrhea, nasal congestion, throat pain, throat swelling, difficulty swallowing, mouth swelling, ear pain, eye pain, visual changes CARDIOVASCULAR: Absent: chest pain, syncope, palpitations, irregular heart rate, lightheadedness , peripheral edema RESPIRATORY: Absent: cough, shortness of breath, dyspnea with exertion, orthopnea, wheezing, stridor, hemoptysis GASTROINTESTINAL: Absent: abdominal pain, abdominal distension, nausea, vomiting, diarrhea, constipation, melena, hematochezia GENITOURINARY: Absent: dysuria, frequency, urgency, hesitancy, hematuria, flank pain, genital pain MUSCULOSKELETAL: arthralgia Absent: myalgia, , joint swelling, back pain, neck pain SKIN: Absent: rash, itching, pallor HEMATOLOGIC/IMMUNOLOGIC: Absent: easy bleeding, easy bruising, lymphadenopathy, frequent infections ENDOCRINE: Absent: unexplained weight gain, unexplained weight loss, heat intolerance, cold intolerance NEUROLOGIC: Absent: headache, focal weakness or paresthesias, dizziness, unsteady gait, seizure, mental status changes, bladder or bowel incontinence PSYCHIATRIC: Absent: anxiety, depression, suicidal or homicidal ideation, hallucinations. PHYSICAL EXAMINATION Vital Signs - 24 hr 09/02/18 08:51 Temperature 97.7 F Pulse Rate 95 H Respiratory 16 Rate Blood Pressure 156/76 O2 Sat by Pulse 100 Oximetry (%) GEN: A&O, no acute distress HEENT: Moist mucus membranes, EOMI, PERRL HEART: RRR, no murmurs noted LUNGS: CTA b/l, no wheezes noted ABDOMEN: Obese, soft, nontender, normoactive bowel sounds EXTREMITIES: Decreased ROM of left hip due to pain, RLE 2+ edema below the knee , extensive scarring noted R knee NEURO: CN II-XII in tact, 5/5 strength throughout with the exception of decreased strength testing in LLE hip likely due to pain Laboratory Results - last 24 hr 09/02/18 09/02/18 14:03 14:26 WBC 8.9 RBC 3.76 Hgb 11.9 Hct 35.5 MCV 94.4 MCH 31.6 MCHC 33.5 RDW 14.0 Plt Count 187 D MPV 8.7 Absolute Neuts (auto) 6.2 Neutrophils % 70.4 Lymphocytes % 19.6 D Monocytes % 6.6 Eosinophils % 2.9 Basophils % 0.5 Nucleated RBC % 0 Sodium 138 Potassium 3.7 Chloride 105 Carbon Dioxide 25 Anion Gap 8 BUN 26 H Creatinine 0.8 Est GFR (CKD-EPI)AfAm 89.04 Est GFR (CKD-EPI)NonAf 76.83 Random Glucose 78 Calcium 9.6 Total Bilirubin 0.5 AST 78 H ALT 80 H Alkaline Phosphatase 82 Total Protein 7.2 Albumin 4.0 ASSESSMENT/PLAN: 68 yo female with PMH HTN, osteoarthritis admitted with left hip pain and inability to ambulate following a fall at home with no LOC or trauma. Inability to ambulate s/p mechanical fall 2/2 osteoarthritis -Pt with recent admission for similar complaint -Required Rehab placement following last admission -Pt unable to ambulate now, will require PT eval -Case discussed with social work who clarified that pt will require authorization and is okay to be obs -Pain control with Tramadol 50 mg PO Q6 PRN -Standing Tylenol 650 mg PO Q4 for pain HTN -HCTZ 25 mg continue -Mildly elevated now likely due to pain Morbid Obesity -Pt does not want bariatric surgery and states she is unable to exercise due to pain -Discussed with patient the importance of f/u with primary for wt loss options FEN -None -normal -Diabetic diet DVT Prophylaxis -Lovenox 40 mg SQ Daily Disposition Observation for Rehab placement Visit type - Emergency Visit Emergency Visit: Yes ED Registration Date: 09/02/18 Care time: The patient presented to the Emergency Department on the above date and was hospitalized for further evaluation of their emergent condition. - New Patient This patient is new to me today: Yes Date on this admission: 09/02/18 - Critical Care Critical Care patient: No
--- NOTE | 2018-09-02 18:00 | PN ---
Teaching Attending Note Name of Resident: Jorgito Rivas ATTENDING PHYSICIAN STATEMENT I saw and evaluated the patient. I reviewed the resident's note and discussed the case with the resident. I agree with the resident's findings and plan as documented. SUBJECTIVE: CC: L hip pain HPI:68 y/o lady with h/o HTN, R knee replacement with complications of infection s/p revision on chronic Abx ,recent admission for L hip pain , who presented after mechanical fall and complained of L hip pain she was in rehab x 2 months after her last admission for L hip pain. she continued to have pain in L hip/groin during and after rehab. today, was ambulating with her walker and felt she was going to fall then lowered herself to the floor landing on her knees. her L groin pain was exacerbated by this. She denies fever, chills, palpitations or any other sx before or after the fall. she lives alone and has an aid for 5 hours daily . Lost her son last year. OBJECTIVE: NAD, MMM , awake , alert and oriented. HEENT: no facial droop. no JVD, MMM. EOMI, round equal pupils, reactive to light CV: RRR, no MRG Lungs: CTAB Ext: obese .R LE circumference > L . 1+ edema on both legs. R knee anterior scar. limited range of motion of L hip due to pain. Neuro: EOMI, round equal pupils, reactive to light. no facial droop. strength 5/ 5 in upper extremities proximally and distally. unable to evaluate strength in LE due to pain in R knee and L hip. ankle dorsiflexion and plantar flexion 5/5 . ASSESSMENT AND PLAN: 68 y/o lady with h/o HTN, R knee replacement with complications of infection s/ p revision on chronic Abx ,recent admission for L hip pain , who presented after mechanical fall and complained of L hip pain 1- L hip pain : no Fx on Ct scan. likely OA . - PT - standing tylenol and PRN tramadol - declined rehab placement. 2- h/o HTN: cont HCTZ 3- H/o R knee prosthetic infection: cont suppressive treatment with doxy dispo: Lives alone, declines rehab placement. will get PT. she request increasing her aid hours . will d/w SW
[2018-09-02] MEDS ORDERED: traMADol HCL 50 MG TABLET PO PRN (18:03)
[2018-09-02] MEDS: ACETAMINOPHEN 325 MG TABLET (FP) PO SCH (18:45)
[2018-09-02 18:51] LABS: EPI CELLS 4.1 /HPF (0-5/HPF); PH,URINE 5.5 (5.0-8.0); URINE APPEARANCE CLEAR; URINE BACTERIA 3.7 /hpf (NEGATIVE); URINE BILIRUBIN NEGATIVE (NEGATIVE); URINE CASTS 1 /lpf (0-8); URINE COLOR YELLOW; URINE GLUCOSE (UA) NEGATIVE (NEGATIVE); URINE KETONE NEGATIVE (NEGATIVE); URINE LEUK ESTERASE TRACE (NEGATIVE); URINE NITRITE NEGATIVE (NEGATIVE); URINE PROTEIN NEGATIVE (NEGATIVE); URINE RBC 2 /hpf (0-4); URINE UROBILINOGEN 0.2 mg/dL (0.2-1.0); URINE WBC 2 /hpf (0-5)
[2018-09-03 00:48] VITALS: BMI 46.5
[2018-09-03] MEDS: ACETAMINOPHEN 325 MG TABLET (FP) PO SCH ×4 (02:45→13:21)
[2018-09-03] MEDS ORDERED: PT OWN MED DRAWER 7, Y5N ONE (06:50)
[2018-09-03] MEDS ORDERED: HYDROCHLOROTHIAZIDE 25 MG TABLET (FP) PO SCH (10:00)
[2018-09-03] MEDS ORDERED: ENOXAPARIN NA (PORCINE) 40 MG/0.4 ML DISP.SYRIN SQ SCH (10:00)
[2018-09-03] MEDS ORDERED: DOCUSATE SODIUM 100 MG CAPSULE (FP) PO SCH (10:00)
--- NOTE | 2018-09-03 11:25 | DS ---
Physical Exam: SUBJECTIVE: Patient seen and examined this AM. States she is still in pain but feeling better today than yesterday. Walked with physical therapy OBJECTIVE: Vital Signs Period Temp Pulse Resp BP Sys/Dahl Pulse Ox Last 24 Hr 97.5 F-98.7 F 82-93 18-20 124-150/49-72 99-99 PHYSICAL EXAM GEN: A&O, no acute distress HEENT: Moist mucus membranes, EOMI, PERRL HEART: RRR, no murmurs noted LUNGS: CTA b/l, no wheezes noted ABDOMEN: Obese, soft, nontender, normoactive bowel sounds EXTREMITIES: Decreased ROM of left hip due to pain, RLE 2+ edema below the knee , extensive scarring noted R knee NEURO: CN II-XII in tact, 5/5 strength throughout with the exception of decreased strength testing in LLE hip likely due to pain LABS Laboratory Results - last 24 hr 09/02/18 09/02/18 09/02/18 14:03 14:26 18:07 WBC 8.9 RBC 3.76 Hgb 11.9 Hct 35.5 MCV 94.4 MCH 31.6 MCHC 33.5 RDW 14.0 Plt Count 187 D MPV 8.7 Absolute Neuts (auto) 6.2 Neutrophils % 70.4 Lymphocytes % 19.6 D Monocytes % 6.6 Eosinophils % 2.9 Basophils % 0.5 Nucleated RBC % 0 Sodium 138 Potassium 3.7 Chloride 105 Carbon Dioxide 25 Anion Gap 8 BUN 26 H Creatinine 0.8 Est GFR (CKD-EPI)AfAm 89.04 Est GFR (CKD-EPI)NonAf 76.83 Random Glucose 78 Calcium 9.6 Total Bilirubin 0.5 AST 78 H ALT 80 H Alkaline Phosphatase 82 Total Protein 7.2 Albumin 4.0 Urine Color Yellow Urine Appearance Clear Urine pH 5.5 Ur Specific Ranier 1.022 Urine Protein Negative Urine Glucose (UA) Negative Urine Ketones Negative Urine Blood Negative Urine Nitrite Negative Urine Bilirubin Negative Urine Urobilinogen 0.2 Ur Leukocyte Esterase Trace Urine WBC (Auto) 2 Urine RBC (Auto) 2 Urine Casts (Auto) 1 U Epithel Cells (Auto) 4.1 Urine Bacteria (Auto) 3.7 HOSPITAL COURSE: Date of Admission:09/02/18 Date of Discharge: 09/03/18 HPI on Admission: 68 yo female with PMH HTN, osteoarthritis admitted with left hip pain and inability to ambulate following a fall at home with no LOC or trauma. She states she lives at home alone with a visiting nurse that comes for 5 hours a day. In the afternoons she is alone, and she states that she is able to ambulate on her own however she feels unsteady and often prays that God will not allow her to fall. Last night she took an ambien for sleep which she does not take consistently and attempted to ambulate to the bathroom. She describes her fall as sliding to the ground and landing on her knees. She denies any LOC or head trauma. She states she does not have frequent falls but often feels unsteady. She recently lost her son last year and does not have a or any other family that can help care for her. Of note she follows with Dr. Jain for ortho who has performed numerous revisions of her right knee most recently replacing an abx spacer last year. She is on doxy chronically at home. She recently started physical therapy twice weekly however only started that last week. Hospital Course: CT pelvis and LLE negative for fracture or acute pathology with only arthritic changes noted. She walked with PT who recommended inpatient rehab however pt wanted to go home with assistance as opposed to inpatient stay. Deemed medically safe for discharge home with increased services and outpatient/home physical therapy. Diclofenac PO was discontinued as patient has been taking for extended period of time. Ambien discontinued as it likely played role in her fall. pt d/c with recs for tylenol and script for tramadol when pain is severe. Minutes to complete discharge: 36 Discharge Summary Reason For Visit: PAIN OF LEFT HIP Current Active Problems Fall (Acute) Left hip pain (Chronic) Osteoarthritis of left hip (Chronic) Condition: Improved - Instructions Diet, Activity, Other Instructions: You were admitted to the hospital after a fall due to pain and difficulty walking. Imaging studies were done which were negative for any fractures or acute injuries and just showed chronic arthritis. You were seen by physical therapy who recommended you go to a short term rehab facility however you did not want to go and requested to go home. You were deemed medically safe for discharge from the hospital after discussion about the risks of going home vs going to a rehab facility. You should continue to take all of your home medications as they are prescribed to you. You should follow up with your primary care physician for further management of your obesity which could improve your ability to walk as well as the pain from your arthritis. You should follow up with your orthopedic surgeon for further management of your chronic knee infection and pain. stop tking ambien and diclofenac do not take more than 4 grams of tylenol in 24 hour If you have any chest pain, shortness of breath, or any other concerning symptoms, you should be seen by your doctor or return to the emergency department. Referrals: Livan Ng MD [Primary Care Provider] - Khris Jain [Non Staff, Medical] - Disposition: VNS/HOME HEALTH CARE - Home Medications Comprehensive Discharge Medication List: Ambulatory Orders Doxycycline Monohydrate [Monodox] 100 mg PO Q12H 03/01/18 Hydrochlorothiazide [Hctz -] 25 mg PO DAILY 03/02/18 Polyethylene Glycol 3350 [Miralax 119 gm Btl -] 17 gm PO BID #1 bottle 03/04/18 Sennosides [Senna -] 1 tab PO HS PRN #30 tablet 03/04/18 Tramadol HCl [Ultram] 50 mg PO TID #9 tablet MDD 3 03/04/18 This patient is new to me today: No Emergency Visit: Yes ED Registration Date: 09/02/18 Care time: The patient presented to the Emergency Department on the above date and was hospitalized for further evaluation of their emergent condition. Critical Care patient: No - Discharge Referral Referred to [facility] No
--- NOTE | 2018-09-03 12:19 | EKG ---
Test Reason : Blood Pressure : / mmHG Vent. Rate : 077 BPM Atrial Rate : 077 BPM P-R Int : 120 ms QRS Dur : 080 ms QT Int : 414 ms P-R-T Axes : 027 001 011 degrees QTc Int : 468 ms NORMAL SINUS RHYTHM No st changes WHEN COMPARED WITH ECG OF 09-FEB-2014 12:53, NO SIGNIFICANT CHANGE WAS FOUND Confirmed by MD Marcos Edward ([id number]) on 09/03/2018 12:18:53 PM Referred By: Confirmed By:Dickson Marcos MD
[2018-09-03 15:09] VITALS: BP 155/73; PULSE 88; TEMP 97.5
--- NOTE | 2018-09-03 18:05 | PN ---
Teaching Attending Note Name of Resident: Abdoulaye Moscoso ATTENDING PHYSICIAN STATEMENT I saw and evaluated the patient. I reviewed the resident's note and discussed the case with the resident. I agree with the resident's findings and plan as documented. SUBJECTIVE: No fever or chills. pain in L hip, but better and she is able to move her L LE more comfortably OBJECTIVE: NAD, MMM , awake , alert and oriented. CV: RRR, no MRG Lungs: CTAB Ext: obese .R LE circumference > L . 1+ edema on both legs. R knee anterior scar. limited range of motion of L hip due to pain. ASSESSMENT AND PLAN: 68 y/o lady with h/o HTN, R knee replacement with complications of infection s/ p revision on chronic Abx ,recent admission for L hip pain , who presented after mechanical fall and complained of L hip pain 1- L hip pain: no Fx on Ct scan. - cont PRN tylenol and PRN tramadol after dc - declined rehab placement. - advised to dc all NSAIDs she used to take ( diclofenac and ibuprofen ) due to risk with chronic use 2- h/o HTN: cont HCTZ 3- H/o R knee prosthetic infection: cont suppressive treatment with doxy dispo: dc home with VNS. refused SNF
== END 2018-09-03 15:20 | disposition home health service (06) ==
LOC: JER 08:51 → JERBED 14:13 → J5S 19:36
PROVIDERS: ADMIT Internal Medicine; ATTEND Internal Medicine
PROC: 3E013GC Introduction of Other Therapeutic Substance into Subcutaneous Tissue, Percutaneous Approach (ICD-10-PCS; principal; 2018-09-02)
DX: M25.552 Pain in left hip (principal); R26.2 Difficulty in walking, not elsewhere classified; M16.12 Unilateral primary osteoarthritis, left hip; I10 Essential (primary) hypertension; D64.9 Anemia, unspecified; K21.9 Gastro-esophageal reflux disease without esophagitis; M19.90 Unspecified osteoarthritis, unspecified site; E66.01 Morbid (severe) obesity due to excess calories; Z68.42 Body mass index [BMI] 45.0-49.9, adult; W18.39XA Other fall on same level, initial encounter; Y93.9 Activity, unspecified; Y92.9 Unspecified place or not applicable
CPT/HCPCS: 36415; 72192-TC; 73700-TC-RT; 80053; 81003; 85025; 87086; 93005; 93010; 96372; 97116-GP; 97161-GP; 99282-25; G0378

== ENCOUNTER 2019-04-18 10:14 | Inpatient (IN) | payer OTHER ==
[2019-04-18] MEDS ORDERED: ACETAMINOPHEN 500 MG TABLET (FP) PO ONE (11:11)
[2019-04-18] MEDS ORDERED: ACETAMINOPHEN 325 MG TABLET (FP) ONE (11:28)
--- NOTE | 2019-04-18 11:36 | PDOC ---
History of Present Illness - General Chief Complaint: Pain, Acute Stated Complaint: PAIN Time Seen by Provider: 04/18/19 10:18 History Source: Patient Exam Limitations: No Limitations - History of Present Illness Initial Comments: 68 yo F, pmh of HTn, GERD, osteoarthritis s/p right knee surgery x2, presents to the ED c/o of Right knee pain of 1 day duration that began this morning and worsened since onset, leading to inability to ambulate. She reports that she has excruciating pain when Weight bearing on the knee, otherwise pt has no difficulty moving her right leg. She has been admitted in the past for similar c /o, with all tests evident for chronic arthritis. She has an appt with her orthopedic surgeon Dr. Jain. Denies f/c/n/v/d/chest pain, abdominal pain, numbness or tingling. 04/18/19 11:31 Associated Symptoms: reports: denies symptoms. denies: chest pain, cough, diaphoresis, fever/chills, nausea/vomiting, shortness of breath, weakness Past History - Travel Traveled outside of the country in the last 30 days: No Close contact w/someone who was outside of country & ill: No - Past Medical History Allergies/Adverse Reactions: Allergies Allergy/AdvReac Type Severity Reaction Status Date / Time No Known Drug Allergies Allergy Verified 04/18/19 10:29 Home Medications: Ambulatory Orders Doxycycline Monohydrate [Monodox] 100 mg PO Q12H 03/01/18 Hydrochlorothiazide [Hctz -] 25 mg PO DAILY 03/02/18 Diclofenac Potassium 1 tab PO BID 12/09/18 Anemia: Yes Asthma: No Cancer: No Cardiac Disorders: No CVA: No COPD: No CHF: No Dementia: No Diabetes: No GI Disorders: Yes (GERD) Disorders: No HTN: Yes Hypercholesterolemia: No Liver Disease: No Seizures: No Thyroid Disease: No - Surgical History Abdominal Surgery: No Appendectomy: No Cardiac Surgery: No Cholecystectomy: No Lung Surgery: No Neurologic Surgery: No Orthopedic Surgery: Yes (R KNEE REPLACEMENT 01/26) - Immunization History Immunization Up to Date: Yes - Psycho Social/Smoking Cessation Hx Smoking Status: No Smoking History: Never smoked Have you smoked in the past 12 months: No Number of Cigarettes Smoked Daily: 0 If you are a former smoker, when did you quit?: 2007 Information on smoking cessation initiated: No Hx Alcohol Use: No Drug/Substance Use Hx: No Substance Use Type: None Hx Substance Use Treatment: No Review of Systems - Review of Systems Able to Perform ROS?: Yes Is the patient limited Wolof proficient: No Constitutional: Yes: Symptoms Reported, Weight Stable. No: Chills, Fever, Weakness HEENTM: Yes: Symptoms Reported. No: Eye Pain, Blurred Vision Respiratory: Yes: Symptoms reported. No: Cough, Shortness of Breath, Wheezing Cardiac (ROS): Yes: Symptoms Reported. No: Chest Pain, Palpitations ABD/GI: Yes: Symptoms Reported. No: Constipated, Diarrhea, Nausea, Vomiting Musculoskeletal: Yes: Symptoms Reported, Back Pain, Joint Pain, Muscle Pain. No : Joint Swelling, Muscle Weakness Integumentary: Yes: Symptoms Reported. No: Erythema, Pallor, Rash Neurological: Yes: Symptoms reported. No: Headache, Numbness, Paresthesia, Weakness *Physical Exam - Vital Signs Last Vital Signs Temp Pulse Resp BP Pulse Ox 97.3 F L 78 16 137/76 98 04/18/19 10:04/18/19 10:04/18/19 10:04/18/19 10:04/18/19 10:37 - Physical Exam General Appearance: Yes: Nourished, Appropriately Dressed HEENT: positive: EOMI, DANIEL, Normal ENT Inspection, Pharynx Normal Neck: positive: Trachea midline, Normal Thyroid, Supple Respiratory/Chest: positive: Lungs Clear, Normal Breath Sounds Cardiovascular: positive: Regular Rhythm, Regular Rate, S1, S2. negative: Murmur, Gallop/S3, Gallop/S4 Vascular Pulses: Dorsalis-Pedis (R): 2+, Doralis-Pedis (L): 2+ Gastrointestinal/Abdominal: positive: Normal Bowel Sounds, Soft Extremity: positive: Normal Inspection. negative: Coldness, Swelling, Erythema Neurologic: positive: Fully Oriented, Alert, Normal Mood/Affect. negative: textile dyer II-XII NML intact ED Treatment Course - RADIOLOGY Radiology Studies Ordered: Category Date Time Status KNEE 4 POS-RIGHT [RAD] Stat Radiology 04/18/19 11:10 Ordered Medical Decision Making - Medical Decision Making 68 yo F, pmh of HTn, GERD, osteoarthritis s/p right knee surgery x2, presents to the ED c/o of Right knee pain of 1 day duration that began this morning and worsened since onset, leading to inability to ambulate. #Right knee pain Right knee xrays Tylenol PO for pain Will reassess pt's ambulation status Will likely require rehab and PT f/u withPCP 04/18/19 11:38 04/18/19 11:41 Discharge - Follow up/Referral Referrals: Livan Ng MD [Primary Care Provider] - - Patient Discharge Instructions - Post Discharge Activity
--- NOTE | 2019-04-18 12:49 | PDOC ---
Documentation entered by Darrell Hanna SCRIBE, acting as scribe for Dereck Lee MD. Dereck Lee MD: This documentation has been prepared by the Jacques faria Daniel, SCRIBE, under my direction and personally reviewed by me in its entirety. I confirm that the documentation accurately reflects all work, treatment, procedures, and medical decision making performed by me. Attending Attestation - Resident Resident Name: Bhaskar Nolasco - ED Attending Attestation I have performed the following: I have examined & evaluated the patient, The case was reviewed & discussed with the resident, I agree w/resident's findings & plan, Exceptions are as noted - HPI HPI: 04/18/19 11:41 The patient is a 68 year old female with a past medical history of HTN, GERD, and OA s/p right knee replacement here today for evaluation of right knee and lower back pain. Pt denies any falls or trauma. The patient reports that her right knee and back pain are chronic but have been gradually worsening to the point where she is unable to ambulate. She reports that her pain is worst when bearing weight. Patient denies headache, lightheadedness. Denies fever, chills. Denies chest pain, shortness of breath. Denies nausea, vomiting, diarrhea, abdominal pain. Allergies: NKDA PCP: Livan Ng - Physicial Exam PE: 04/18/19 11:42 GENERAL: Awake, alert, and fully oriented, in no acute distress. HEAD: No signs of trauma EYES: PERRLA, EOMI, sclera anicteric, conjunctiva clear ENT: Auricles normal inspection, hearing grossly normal, nares patent, oropharynx clear without exudates. Moist mucosa NECK: Nontender, no stepoffs, Normal ROM, supple, no lymphadenopathy, JVD, or masses LUNGS: Breath sounds equal, clear to auscultation bilaterally. No wheezes, and no crackles HEART: Regular rate and rhythm, normal S1 and S2, no murmurs, rubs or gallops ABDOMEN: Soft, nontender, normoactive bowel sounds. No guarding, no rebound. No masses EXTREMITIES: Normal range of motion, no edema. No clubbing or cyanosis. No cords, erythema, or tenderness NEUROLOGICAL: Cranial nerves II through XII intact. 5/5 strength and sensation in all extremities, Normal speech, normal cerebellar function SKIN: Warm, Dry, normal turgor, no rashes or lesions noted. - Medical Decision Making 04/18/19 12:50 68 F with chronic atraumatic R knee and lower back pain. - XR - PT eval 04/18/19 14:47 XR negative PT evaluated pt, deemed unsafe DC home. Pt admitted to hospitalist for placement.
[2019-04-18 14:51] LABS: BASO % 0.6 % (0-2.0); EOS % 2.9 % (0-4.5); HEMATOCRIT 36.6 % (32.4-45.2); HEMOGLOBIN 12.4 GM/dL (10.7-15.3); LYMPH % 16.5 % (8-40); MCH 32.2 pg (25.7-33.7); MCHC 33.8 g/dl (32.0-36.0); MEAN CELL VOLUME 95.2 fl (80-96); MEAN PLT VOLUME 9.2 fl (7.5-11.1); MONO % 5.9 % (3.8-10.2); NEUT % 74.1 % (42.8-82.8); PLATELET COUNT 183 K/MM3 (134-434); RBC 3.84 M/mm3 (3.60-5.2); RDW 13.7 % (11.6-15.6); WHITE BLOOD COUNT 8.5 K/mm3 (4.0-10.0)
[2019-04-18 15:14] LABS: ALBUMIN 3.8 g/dl (3.4-5.0); BILIRUBIN,TOTAL 0.6 mg/dL (0.2-1); BLOOD UREA NITROGEN 21.9 mg/dL (7-18); CALCIUM 9.3 mg/dL (8.5-10.1); CREATININE 0.8 mg/dL (0.55-1.3); POTASSIUM 4.9 mmol/L (3.5-5.1); TOT PROT 7.3 g/dl (6.4-8.2)
--- NOTE | 2019-04-18 15:51 | HP ---
Hospitalist Medicine Admission 68 y/o F with PMH HTN, OA of knees, multiple revisions of R knee, recent abx spacer 2018 (on chronic doxy at home), who presents for inability to ambulate and severe R knee pain that has gradually worsened over the last week. Per pt, at baseline, she is able to ambulate using a walker to the restroom. However, this AM, she was unable to get out of bed. Was with increased stiffness and pain in her R knee. For this reason, she called her aid to her bedside, but she was still unable to move. Thus pt was brought here via ambulance. During this time, pt denies HANLEY, fever, chills, SOB, chest pain or pressure or changes in urinary or bowel function. Takes diclofenac at home for her knee pain. No erythema, trauma, or edema to area. Has a home health aid who is with her 5 days a week. PMD is Dr. Lazcano in [place], rheum is Dr. Waters. PMH: as above PsxH: as above meds: as in chart, verified with patient allergies: NKDA FH: denies SH: works at [employer] for 20+ years in the [place] [employer] area . denies cigarette, alcohol or drug use Allergies No Known Drug Allergies Allergy (Verified 04/18/19 10:29) HOME MEDICATIONS: Home Medications Medication Instructions Recorded Doxycycline Monohydrate [Monodox] 100 mg PO Q12H 03/01/18 Hydrochlorothiazide [Hctz -] 25 mg PO DAILY 03/02/18 Diclofenac Potassium 1 tab PO BID 12/09/18 PHYSICAL EXAMINATION Vital Signs - 24 hr 04/18/19 04/18/19 10:19 10:37 Temperature 97.3 F L Pulse Rate 78 Respiratory 16 Rate Blood Pressure 137/76 O2 Sat by Pulse 96 98 Oximetry (%) Physical Exam general: obese, anxious, in mild distress HEENT: ncat, perrla neck: supple cardio: distant heart sounds 2/2 body habitus, however s1, s2 RRR. no r/m/g pulm: cta b/l. no accessory m usage abdomen: obese, nontender, nondistended MSK: no active synovitis, in other joints. +limited ROM R shoulder abduction, adduction. LE: 2+ pulses, 1+ pitting edema (chronic per pt). +limited hip flexion, extension R +scarring over R knee, 2/2 past sx. +unable to WB on RLE. +no crepitus . Laboratory Results - last 24 hr 04/18/19 04/18/19 14:38 14:38 WBC 8.5 RBC 3.84 Hgb 12.4 Hct 36.6 MCV 95.2 MCH 32.2 MCHC 33.8 RDW 13.7 Plt Count 183 MPV 9.2 Absolute Neuts (auto) 6.3 Neutrophils % 74.1 Lymphocytes % 16.5 Monocytes % 5.9 Eosinophils % 2.9 Basophils % 0.6 Nucleated RBC % 0 Sodium 139 Potassium 4.9 Chloride 108 H Carbon Dioxide 25 Anion Gap 6 L BUN 21.9 H Creatinine 0.8 Est GFR (CKD-EPI)AfAm 89.04 Est GFR (CKD-EPI)NonAf 76.83 Random Glucose 96 Calcium 9.3 Total Bilirubin 0.6 AST 103 H ALT 96 H Alkaline Phosphatase 72 Total Protein 7.3 Albumin 3.8 Imaging -R knee XR: without acute abnormality. no fx or subluxation ASSESSMENT/PLAN: 68 y/o F with PMH HTN, OA of knees, multiple revisions of R knee, recent abx spacer 2018 (on chronic doxy at home), who presents for inability to ambulate and severe R knee pain that has gradually worsened over the last week. #inability to ambulate 2/2 OA #intractable R knee pain -will c/w home diclofenac -c/w home doxy; has hx abx spacer -will add tylenol PRN, lidocaine patch to area -if still uncontrolled pain, can add tramadol PRN -physical therapy -f/u INR, coags in case any intervention needed -ortho consult: Dr. Boogie #chronic back pain -likely exacerbated by knees/OA -f/u lumbar imaging #morbid obesity -BMI 49 -needs to see bariatric sx as outpt -dietary consult, nutritional evaluation #HTN- controlled -c/w HCTZ #health maintenance -f/u a1c, lipid panel #F/E/N no IVF req at this time continue to follow lytes na controlled diet #PPX DVT: hep 5k sq tid #Dispo admit to med-surg Visit type - Emergency Visit Emergency Visit: Yes ED Registration Date: 04/18/19 Care time: The patient presented to the Emergency Department on the above date and was hospitalized for further evaluation of their emergent condition. - New Patient This patient is new to me today: Yes Date on this admission: 04/18/19 - Critical Care Critical Care patient: No
[2019-04-18 16:03] VITALS: BMI 48.9
[2019-04-18] MEDS ORDERED: PNEUMOC 13-VAL CONJ-DIP CRM/PF 0.5 ML DISP.SYRIN IM ONE (16:03)
[2019-04-18] MEDS ORDERED: PATIENT'S OWN MEDICATION (NON-FORMULARY) (Doxycycline Monohydrate [Monodox] 100 MG) PO SCH ×2 (16:15→16:30)
[2019-04-18] MEDS: LIDOCAINE 5% TOPICAL PATCH TP SCH (17:18)
[2019-04-18] MEDS: HEPARIN NA (PORCINE) 5,000 UNITS/ML 1ML VIAL SQ SCH (17:18)
[2019-04-18 18:33] LABS: INR 1.04 (0.83-1.09); PROTHROMBIN TIME (PATIENT) 12.3 SEC (9.7-13.0)
[2019-04-18 18:36] LABS: ACTIVATED PTT 34.3 SECONDS (25.2-36.5)
[2019-04-18 18:46] LABS: CHOLESTEROL 136 mg/dL (50-200); HDL CHOLESTEROL 44 mg/dL (40-60); LDL CHOLESTEROL (ONLY SJRH) 72 mg/dL (5-100); TRIGLYCERIDES 98 mg/dL (0-150)
[2019-04-18] MEDS ORDERED: DOXYCYCLINE HYCLATE 100 MG CAPSULE PO SCH (22:00)
[2019-04-18] MEDS ORDERED: DICLOFENAC POTASSIUM PO SCH ×2 (22:00)
[2019-04-18] MEDS: LIDOCAINE PATCH REMOVAL MC SCH (22:45)
--- NOTE | 2019-04-18 23:13 | PN ---
Teaching Attending Note Name of Resident: Beronica Singh ATTENDING PHYSICIAN STATEMENT I saw and evaluated the patient. I reviewed the resident's note and discussed the case with the resident. I agree with the resident's findings and plan as documented. 68 y/o F with PMH HTN, OA of knees, multiple revisions of R knee, recent abx spacer 2018 (on chronic doxy at home), who presents for inability to ambulate and severe R knee pain that has gradually worsened over the last week. Patient endorses more difficulty getting around with her rollator walker due to heavy feeling in R knee and not being able to bare weight as much due to pain. Pt. follows w/ Dr. Chuyita de la paz, and in the past pt. refused further surgical intervention, and shes still refusing it. PE VSS GA morbidly obese, AAox3, speaking in full sentences HEENT NC/AT, EOMI, wide neck circumference Chest CTAB, no crackles or wheezes CVS S1, S2+, RRR Abd morbidly obese, Soft, NT, no guarding Ext R knee w/ extensive surgical changes, limited passive ROM due to pain, no visible erythema, no warmth to touch, L knee w/ OA changes old scar. Vital Signs - 24 hr 04/18/19 04/18/19 04/18/19 10:19 10:37 15:42 Temperature 97.3 F L 98.2 F Pulse Rate 78 89 Respiratory 16 22 H Rate Blood Pressure 137/76 137/63 O2 Sat by Pulse 96 98 Oximetry (%) Laboratory Results - last 24 hr 04/18/19 04/18/19 04/18/19 14:38 14:38 17:00 WBC 8.5 RBC 3.84 Hgb 12.4 Hct 36.6 MCV 95.2 MCH 32.2 MCHC 33.8 RDW 13.7 Plt Count 183 MPV 9.2 Absolute Neuts (auto) 6.3 Neutrophils % 74.1 Lymphocytes % 16.5 Monocytes % 5.9 Eosinophils % 2.9 Basophils % 0.6 Nucleated RBC % 0 PT with INR 12.30 INR 1.04 PTT (Actin FS) 34.3 Sodium 139 Potassium 4.9 Chloride 108 H Carbon Dioxide 25 Anion Gap 6 L BUN 21.9 H Creatinine 0.8 Est GFR (CKD-EPI)AfAm 89.04 Est GFR (CKD-EPI)NonAf 76.83 Random Glucose 96 Hemoglobin A1c % Calcium 9.3 Total Bilirubin 0.6 AST 103 H ALT 96 H Alkaline Phosphatase 72 Total Protein 7.3 Albumin 3.8 Triglycerides Cholesterol Total LDL Cholesterol HDL Cholesterol Blood Type Antibody Screen 04/18/19 04/18/19 04/18/19 17:00 17:00 17:00 WBC RBC Hgb Hct MCV MCH MCHC RDW Plt Count MPV Absolute Neuts (auto) Neutrophils % Lymphocytes % Monocytes % Eosinophils % Basophils % Nucleated RBC % PT with INR INR PTT (Actin FS) Sodium Potassium Chloride Carbon Dioxide Anion Gap BUN Creatinine Est GFR (CKD-EPI)AfAm Est GFR (CKD-EPI)NonAf Random Glucose Hemoglobin A1c % 5.8 Calcium Total Bilirubin AST ALT Alkaline Phosphatase Total Protein Albumin Triglycerides 98 Cholesterol 136 Total LDL Cholesterol 72 HDL Cholesterol 44 Blood Type O NEGATIVE Antibody Screen Negative Current Medications Generic Name Dose Route Start Last Admin Trade Name Freq PRN Reason Stop Dose Admin Acetaminophen 650 mg 04/18/19 15:48 Tylenol - PO Q6H PRN PAIN LEVEL 7 - 10 Heparin Sodium (Porcine) 5,000 unit 04/18/19 18:00 04/18/19 17:18 Heparin - SQ 5,000 unit Q8H-IV NICHOLAS Administration Hydrochlorothiazide 25 mg 04/19/19 10:00 Hctz - PO DAILY NICHOLAS Lidocaine 1 patch 04/18/19 16:00 04/18/19 17:18 Lidoderm Patch - TP 1 patch DAILY NICHOLAS Administration Miscellaneous 1 each 04/18/19 22:00 04/18/19 22:45 Lidoderm Patch Removal MC 1 each DAILY@2200 NICHOLAS Administration Non-Formulary Medication 1 tab 04/18/19 22:00 Diclofenac Potassium [Diclofenac Potassium] PO BID NICHOLAS Non-Formulary Medication 100 mg 04/18/19 16:30 Doxycycline Monohydrate [Monodox] PO Q12H COUNTS INCLUDE 234 BEDS AT THE [facility] A/P: 68 F h/o morbid obese, severe R knee OA w/ acute exacerbation of pain due to end stage OA. Patient admitted for pain control and PT evaluation. R knee OA Severe R knee OA, w/ multiple surgeries Pt. refusing surgery at his time requesting PT management Place PT referral, pain management w/ Tylenol and Tramadol for 7-10 breakthrough pain Ortho consult: Dr. Boogie Morbid obesity Counseled on diet, exercise, weight loss Pt. may be candidate for bariatric surgery HTN Resume home meds as tolerated DVT ppx: Lovenox SC FEN: PO hydration, no labs indicated, low calorie diet
[2019-04-19] MEDS: HEPARIN NA (PORCINE) 5,000 UNITS/ML 1ML VIAL SQ SCH ×3 (02:59→17:02)
[2019-04-19 08:04] LABS: BASO % 0.5 % (0-2.0); EOS % 4.7 % (0-4.5); HEMATOCRIT 36.8 % (32.4-45.2); HEMOGLOBIN 12.3 GM/dL (10.7-15.3); LYMPH % 21.6 % (8-40); MCH 32.3 pg (25.7-33.7); MCHC 33.5 g/dl (32.0-36.0); MEAN CELL VOLUME 96.2 fl (80-96); MONO % 6.2 % (3.8-10.2); PLATELET COUNT 162 K/MM3 (134-434); RBC 3.83 M/mm3 (3.60-5.2); RDW 13.7 % (11.6-15.6); WHITE BLOOD COUNT 6.9 K/mm3 (4.0-10.0)
[2019-04-19 08:30] LABS: BLOOD UREA NITROGEN 16.2 mg/dL (7-18); CALCIUM 9.2 mg/dL (8.5-10.1); CREATININE 0.8 mg/dL (0.55-1.3); MAGNESIUM 2.4 mg/dL (1.8-2.4); PHOSPHOROUS 3.2 mg/dL (2.5-4.9); POTASSIUM 3.8 mmol/L (3.5-5.1)
[2019-04-19] MEDS ORDERED: LISINOPRIL 10 MG TABLET (FP) PO SCH (10:00)
[2019-04-19] MEDS: LIDOCAINE 5% TOPICAL PATCH TP SCH (10:23)
[2019-04-19] MEDS: HYDROCHLOROTHIAZIDE 25 MG TABLET (FP) PO SCH (10:25)
--- NOTE | 2019-04-19 17:24 | PN ---
Progress Note (short form) - Note Progress Note: Pt seen and examined. In summary she is s/p multiple right knee surgeries, all of which subsequently became infected. The last surgery she had was by Dr Jain at [facility] in [facility]. She has been on IV and then PO antibiotics for over 1 year. She already has an appointment set up with Dr Jain for 04-30-2019. She also saw Dr Holguin for a second opinion in October,. She denies any recent trauma, or any recent change in the baseline status of her right knee. PE Morbidly obese Right knee looks grossly ok, no drainage, NVI, no erythema, no signs of cellulitis, no swelling. Limited ROM, appears chronic. Imp Chronically infected right knee, under the orthopedic care of Dr Jain at [facility]. Rec I rec that she follow up with him on 04-30-2019. No other orthopedic interventions are needed at this time. we will follow as needed.
--- NOTE | 2019-04-19 19:35 | PN ---
Physical Exam: 68 y/o F with PMH HTN, OA of knees, multiple revisions of R knee, recent abx spacer 2018 (on chronic doxy at home), who presents for inability to ambulate and severe R knee pain that has gradually worsened over the last week. Seen by PT who recommend STR and cont. therapy. As per Ortho Dr. Alves no further intervention and recommended pt. goes to her outside orthopedist at [facility] on 04/30/2019 (scheduled appointment), denies fever/chills. PE VSS GA morbidly obese, AAox3, speaking in full sentences, eating in bed HEENT NC/AT, EOMI, wide neck circumference Chest CTAB, no crackles or wheezes CVS S1, S2+, RRR Abd morbidly obese, Soft, NT, no guarding Ext R knee w/ extensive surgical changes, limited passive ROM due to pain, no visible erythema, no warmth to touch, L knee w/ OA changes old scar. A/P: 68 F h/o morbid obese, severe R knee OA w/ acute exacerbation of pain due to end stage OA. Patient admitted for pain control and PT evaluation. R knee OA Severe R knee OA, w/ multiple surgeries, likely degenerative changes due to morbid obesity Pt. refusing surgery at his time requesting PT management Place PT referral, pain management w/ Tylenol and Tramadol for 7-10 breakthrough pain Ortho consult: Dr. Boogie whom recommend she follows at her outpatient appointment Morbid obesity Counseled on diet, exercise, weight loss Pt. may be candidate for bariatric surgery HTN Resume home meds as tolerated DVT ppx: Lovenox SC FEN: PO hydration, no labs indicated, low calorie diet Visit type - Emergency Visit Emergency Visit: Yes ED Registration Date: 04/18/19 Care time: The patient presented to the Emergency Department on the above date and was hospitalized for further evaluation of their emergent condition. - New Patient This patient is new to me today: No - Critical Care Critical Care patient: No - Discharge Referral Referred to [facility] Med P.C.: No
[2019-04-19] MEDS: LIDOCAINE PATCH REMOVAL MC SCH (21:28)
[2019-04-20] MEDS: HEPARIN NA (PORCINE) 5,000 UNITS/ML 1ML VIAL SQ SCH ×3 (02:54→17:57)
[2019-04-20 09:50] LABS: BLOOD UREA NITROGEN 14.3 mg/dL (7-18); CALCIUM 8.9 mg/dL (8.5-10.1); CREATININE 0.7 mg/dL (0.55-1.3); POTASSIUM 3.6 mmol/L (3.5-5.1)
[2019-04-20] MEDS: HYDROCHLOROTHIAZIDE 25 MG TABLET (FP) PO SCH (10:02)
[2019-04-20] MEDS: ACETAMINOPHEN 325 MG TABLET (FP) PO PRN (10:02)
[2019-04-20] MEDS: LISINOPRIL 20 MG TABLET (FP) PO SCH (10:02)
[2019-04-20] MEDS: LIDOCAINE 5% TOPICAL PATCH TP SCH (10:02)
[2019-04-20] MEDS ORDERED: PT OWN MED DRAWER 7, Y5N ONE (18:15)
--- NOTE | 2019-04-20 19:34 | PN ---
Physical Exam: 68 y/o F with PMH HTN, OA of knees, multiple revisions of R knee, recent abx spacer 2018 (on chronic doxy at home), who presents for inability to ambulate and severe R knee pain that has gradually worsened over the last week. Seen by PT who recommend short term rehab and cont. therapy however patient needs to be encouraged to participate. As per Ortho Dr. Alves no further intervention and recommended pt. goes to her outside orthopedist at [facility] on 04/30/2019 ( scheduled appointment), denies fever/chills. PE GA morbidly obese, AAox3, speaking in full sentences HEENT NC/AT, EOMI, wide neck circumference Chest CTAB, no crackles or wheezes CVS S1, S2+, RRR Abd morbidly obese, Soft, NT, no guarding Ext R knee w/ extensive surgical changes, limited passive ROM due to pain, no visible erythema, no warmth to touch, L knee w/ OA changes old scar. Vital Signs - 24 hr 04/19/19 04/19/19 04/20/19 21:00 22:04 09:00 Temperature 98.3 F Pulse Rate 80 Respiratory 20 20 18 Rate Blood Pressure 150/74 O2 Sat by Pulse 96 96 Oximetry (%) 04/20/19 04/20/19 09:19 15:42 Temperature 98 F 97.8 F Pulse Rate 82 86 Respiratory 18 22 H Rate Blood Pressure 158/57 L 148/64 O2 Sat by Pulse Oximetry (%) Laboratory Tests 04/18/19 04/18/19 04/18/19 14:38 14:38 17:00 WBC 8.5 RBC 3.84 Hgb 12.4 Hct 36.6 MCV 95.2 MCH 32.2 MCHC 33.8 RDW 13.7 Plt Count 183 MPV 9.2 Absolute Neuts (auto) 6.3 Neutrophils % 74.1 Lymphocytes % 16.5 Monocytes % 5.9 Eosinophils % 2.9 Basophils % 0.6 Nucleated RBC % 0 PT with INR 12.30 INR 1.04 PTT (Actin FS) 34.3 Sodium 139 Potassium 4.9 Chloride 108 H Carbon Dioxide 25 Anion Gap 6 L BUN 21.9 H Creatinine 0.8 Est GFR (CKD-EPI)AfAm 89.04 Est GFR (CKD-EPI)NonAf 76.83 Random Glucose 96 Hemoglobin A1c % Calcium 9.3 Phosphorus Magnesium Total Bilirubin 0.6 AST 103 H ALT 96 H Alkaline Phosphatase 72 Total Protein 7.3 Albumin 3.8 Triglycerides Cholesterol Total LDL Cholesterol HDL Cholesterol Blood Type Antibody Screen 04/18/19 04/18/19 04/18/19 17:00 17:00 17:00 WBC RBC Hgb Hct MCV MCH MCHC RDW Plt Count MPV Absolute Neuts (auto) Neutrophils % Lymphocytes % Monocytes % Eosinophils % Basophils % Nucleated RBC % PT with INR INR PTT (Actin FS) Sodium Potassium Chloride Carbon Dioxide Anion Gap BUN Creatinine Est GFR (CKD-EPI)AfAm Est GFR (CKD-EPI)NonAf Random Glucose Hemoglobin A1c % 5.8 Calcium Phosphorus Magnesium Total Bilirubin AST ALT Alkaline Phosphatase Total Protein Albumin Triglycerides 98 Cholesterol 136 Total LDL Cholesterol 72 HDL Cholesterol 44 Blood Type O NEGATIVE Antibody Screen Negative 04/19/19 04/19/19 04/20/19 07:05 07:05 08:00 WBC 6.9 RBC 3.83 Hgb 12.3 Hct 36.8 MCV 96.2 H MCH 32.3 MCHC 33.5 RDW 13.7 Plt Count 162 MPV 9.0 Absolute Neuts (auto) 4.6 Neutrophils % 67.0 Lymphocytes % 21.6 D Monocytes % 6.2 Eosinophils % 4.7 H Basophils % 0.5 Nucleated RBC % 0 PT with INR INR PTT (Actin FS) Sodium 138 141 Potassium 3.8 3.6 Chloride 106 108 H Carbon Dioxide 25 25 Anion Gap 7 L 9 BUN 16.2 14.3 Creatinine 0.8 0.7 Est GFR (CKD-EPI)AfAm 88.42 103.91 Est GFR (CKD-EPI)NonAf 76.29 89.65 Random Glucose 84 91 Hemoglobin A1c % Calcium 9.2 8.9 Phosphorus 3.2 Magnesium 2.4 Total Bilirubin AST ALT Alkaline Phosphatase Total Protein Albumin Triglycerides Cholesterol Total LDL Cholesterol HDL Cholesterol Blood Type Antibody Screen Current Medications Generic Name Dose Route Start Last Admin Trade Name Freq PRN Reason Stop Dose Admin Acetaminophen 650 mg 04/18/19 15:48 04/20/19 10:02 Tylenol - PO 650 mg Q6H PRN Administration PAIN LEVEL 7 - 10 Heparin Sodium (Porcine) 5,000 unit 04/18/19 18:00 04/20/19 17:57 Heparin - SQ 5,000 unit Q8H-IV NICHOLAS Administration Hydrochlorothiazide 25 mg 04/19/19 10:00 04/20/19 10:02 Hctz - PO 25 mg DAILY NICHOLAS Administration Lidocaine 1 patch 04/18/19 16:00 04/20/19 10:02 Lidoderm Patch - TP 1 patch DAILY NICHOLAS Administration Lisinopril 20 mg 04/20/19 10:00 04/20/19 10:02 Prinivil PO 20 mg DAILY NICHOLAS Administration Miscellaneous 1 each 04/18/19 22:00 04/19/19 21:28 Lidoderm Patch Removal MC 1 each DAILY@2200 NICHOLAS Administration Non-Formulary Medication 1 tab 04/18/19 22:00 Diclofenac Potassium [Diclofenac Potassium] PO BID NICHOLAS Non-Formulary Medication 100 mg 04/18/19 16:30 Doxycycline Monohydrate [Monodox] PO Q12H [facility] A/P: 68 F h/o morbid obese, severe R knee OA w/ acute exacerbation of pain due to end stage OA. Patient admitted for pain control and PT evaluation. R knee OA Severe R knee OA, w/ multiple surgeries, likely degenerative changes due to morbid obesity Pt. refusing surgery at his time requesting PT management Place PT referral, pain management w/ Tylenol and Tramadol for 7-10 breakthrough pain Ortho consult: Dr. Boogie whom recommend she follows at her outpatient appointment Morbid obesity Counseled on diet, exercise, weight loss Pt. may be candidate for bariatric surgery patient must be encouraged to decreased PO intake and participate in physical therapy sessions HTN Resume home meds as tolerated DVT ppx: Lovenox SC FEN: PO hydration, no labs indicated, low calorie diet Visit type - Emergency Visit Emergency Visit: Yes ED Registration Date: 04/18/19 Care time: The patient presented to the Emergency Department on the above date and was hospitalized for further evaluation of their emergent condition. - New Patient This patient is new to me today: No - Critical Care Critical Care patient: No - Discharge Referral Referred to [facility] Med P.C.: No
[2019-04-20] MEDS: LIDOCAINE PATCH REMOVAL MC SCH (21:53)
[2019-04-21] MEDS: HEPARIN NA (PORCINE) 5,000 UNITS/ML 1ML VIAL SQ SCH ×3 (01:28→17:27)
[2019-04-21] MEDS: ACETAMINOPHEN 325 MG TABLET (FP) PO PRN ×2 (10:29→23:51)
[2019-04-21] MEDS: HYDROCHLOROTHIAZIDE 25 MG TABLET (FP) PO SCH (10:29)
[2019-04-21] MEDS: LIDOCAINE 5% TOPICAL PATCH TP SCH (10:30)
[2019-04-21] MEDS: LISINOPRIL 20 MG TABLET (FP) PO SCH (10:30)
--- NOTE | 2019-04-21 13:32 | PN ---
Progress Note (short form) - Note Progress Note: Hospitalist Medicine In good spirits. Pain is better controlled, likes lidocaine patch. Requesting additional one for L knee. 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 D/w pt, agreeable to rehab; "I think I need it." D/w SW, will try to send for [facility]. Vitals 04/21/19 09:56 Temperature 98 F Pulse Rate 84 Respiratory 18 Rate Blood Pressure 122/57 L Physical Exam general: obese, calm today. in NAD HEENT: ncat, perrla neck: supple cardio: distant heart sounds 2/2 body habitus, s1, s2 RRR. no r/m/g pulm: cta b/l. no accessory m usage abdomen: obese, nontender, nondistended MSK: +limited ROM R shoulder abduction, adduction. LE: 2+ pulses, 1+ pitting edema (chronic per pt). +improved hip flexion, extension R +scarring over R knee, 2/2 past sx. +limited weight bearing Laboratory Tests 04/20/19 08:00 Sodium 141 Potassium 3.6 Chloride 108 H Carbon Dioxide 25 Anion Gap 9 BUN 14.3 Creatinine 0.7 Random Glucose 91 Imaging 04/18/19: R knee XR: no fracture, subluxation or blastic or lytic changes 04/18/19: Lumbar spine XR: 5 lumbar type vertebral bodies with scoliosis, degenerative changs, intact paraspinal soft tissues and patent SI joints. straightening of lateral and spot view - degenerative changes, wedging. vacuum phenomena at several levels and narrowing of lower intervertebral disc spaces, no sign fracture or subluxation. heavy aotic and iliac vascular calcifications ASSESSMENT/PLAN: 68 y/o F with PMH HTN, OA of knees, multiple revisions of R knee, recent abx spacer 2018 (on chronic doxy at home), who presents for inability to ambulate and severe R knee pain that has gradually worsened over the last week. #inability to ambulate 2/2 OA #intractable R knee pain -will c/w home diclofenac -c/w home doxy; has hx abx spacer -will add tylenol PRN, lidocaine patch to both knees -if still uncontrolled pain, can add tramadol PRN (has not needed) -physical therapy -will need rehab placement -ortho consult: Dr. Boogie; no acute intervention needed #chronic back pain -likely exacerbated by knees/OA -lumbar imaging: degenerative changes, wedging #morbid obesity -BMI 49 -needs to see bariatric sx as outpt - pt is interested #HTN- controlled -c/w HCTZ -started on lisinopril #health maintenance -a1c WNL -per lipid panel, ASCVD risk 5.1% borderline. start w/ dietary mods, then repeat lipid panel in 3 mo as outpt to determine if will need statin #F/E/N no IVF req at this time continue to follow lytes na controlled diet #PPX DVT: hep 5k sq tid #Dispo cont'd monitoring on med-surg awaiting rehab placement, possibly to [facility]. D/w JB
--- NOTE | 2019-04-21 14:32 | PN ---
Teaching Attending Note Name of Resident: Beronica Singh ATTENDING PHYSICIAN STATEMENT I saw and evaluated the patient. I reviewed the resident's note and discussed the case with the resident. I agree with the resident's findings and plan as documented. SUBJECTIVE: Pain is better. OBJECTIVE: Vital Signs Period Temp Pulse Resp BP Sys/Dahl Pulse Ox Last 24 Hr 97.8 F-98.2 F 78-86 18-22 109-148/47-70 96-96 HEART: S1S2, RRR LUNGS: Clear ABDOMEN: Obese, soft, non-tender, non-distended, normal BS EXTREMITIES: 1+ edema Current Medications Generic Name Dose Route Start Last Admin Trade Name Freq PRN Reason Stop Dose Admin Acetaminophen 650 mg 04/18/19 15:48 04/21/19 10:29 Tylenol - PO 650 mg Q6H PRN Administration PAIN LEVEL 7 - 10 Heparin Sodium (Porcine) 5,000 unit 04/18/19 18:00 04/21/19 10:30 Heparin - SQ 5,000 unit Q8H-IV NICHOLAS Administration Hydrochlorothiazide 25 mg 04/19/19 10:00 04/21/19 10:29 Hctz - PO 25 mg DAILY NICHOLAS Administration Lidocaine 1 patch 04/22/19 10:00 Lidoderm Patch - TP DAILY NICHOLAS Lidocaine 1 patch 04/22/19 10:00 Lidoderm Patch - TP DAILY NICHOLAS Lisinopril 20 mg 04/20/19 10:00 04/21/19 10:30 Prinivil PO 20 mg DAILY NICHOLAS Administration Miscellaneous 1 each 04/18/19 22:00 04/20/19 21:53 Lidoderm Patch Removal MC 1 each DAILY@2200 NICHOLAS Administration Miscellaneous 1 each 04/21/19 22:00 Lidoderm Patch Removal MC DAILY@2200 [facility] Non-Formulary Medication 1 tab 04/18/19 22:00 Diclofenac Potassium [Diclofenac Potassium] PO BID NICHOLAS Non-Formulary Medication 100 mg 04/18/19 16:30 Doxycycline Monohydrate [Monodox] PO Q12H [facility] ASSESSMENT AND PLAN: This is a 68 year old woman with a history of HTN, OA of knees, multiple right knee surgeries complicated by infection, chronic back pain, obesity who presents for inability to ambulate and severe R knee pain that has gradually worsened over the last week. 1. Bilateral knee pain secondary to OA - Pain control with Lidoderm, Voltaren - Continue PT 2. Chronic right knee infection - Continue doxycycline 3. Morbid obesity with BMI 48.9 4. Chronic back pain 5. HTN - Continue lisinopril, HCTZ 6. Disposition - Plan for discharge to rehab
[2019-04-21] MEDS: LIDOCAINE PATCH REMOVAL MC SCH ×2 (22:35)
[2019-04-22] MEDS: HEPARIN NA (PORCINE) 5,000 UNITS/ML 1ML VIAL SQ SCH ×3 (01:29→17:21)
[2019-04-22] MEDS: LISINOPRIL 20 MG TABLET (FP) PO SCH (09:34)
[2019-04-22] MEDS: HYDROCHLOROTHIAZIDE 25 MG TABLET (FP) PO SCH (09:34)
[2019-04-22] MEDS: LIDOCAINE 5% TOPICAL PATCH TP SCH ×2 (09:34→09:35)
[2019-04-22] MEDS: METHYL SALICYLATE/MENTHOL OINT 30 GM TUBE TP SCH (15:21)
--- NOTE | 2019-04-22 15:54 | PN ---
Progress Note (short form) - Note Progress Note: Hospitalist Medicine Pain has improved in knees. Requesting bengay ointment for knees. Awaiting rehab placement Vitals 04/22/19 13:28 Temperature 97.4 F L Pulse Rate 79 Respiratory 18 Rate Blood Pressure 119/78 Physical Exam general: morbidly obese, in NAD HEENT: ncat, perrla neck: supple cardio: distant heart sounds 2/2 body habitus, s1, s2 RRR. no r/m/g pulm: cta b/l. no accessory m usage abdomen: morbidly obese, nontender, nondistended LE: 2+ pulses, 1+ pitting edema (chronic per pt). +scarring over R knee, 2/2 past sx. +limited weight bearing Last Laboratory Tests 04/20/19 08:00 Sodium 141 Potassium 3.6 Chloride 108 H Carbon Dioxide 25 Anion Gap 9 BUN 14.3 Creatinine 0.7 Random Glucose 91 Imaging 04/18/19: R knee XR: no fracture, subluxation or blastic or lytic changes 04/18/19: Lumbar spine XR: 5 lumbar type vertebral bodies with scoliosis, degenerative changs, intact paraspinal soft tissues and patent SI joints. straightening of lateral and spot view - degenerative changes, wedging. vacuum phenomena at several levels and narrowing of lower intervertebral disc spaces, no sign fracture or subluxation. heavy aotic and iliac vascular calcifications ASSESSMENT/PLAN: 68 y/o F with PMH HTN, OA of knees, multiple revisions of R knee, recent abx spacer 2018 (on chronic doxy at home), who presents for inability to ambulate and severe R knee pain that has gradually worsened over the last week. #inability to ambulate 2/2 OA #intractable R knee pain -will c/w home diclofenac -c/w home doxy; has hx abx spacer -will add tylenol PRN, lidocaine patch to both knees -if still uncontrolled pain, can add tramadol PRN (has not needed) -added bengay ointment per pt request -physical therapy -will need rehab placement -ortho consult: Dr. Boogie; no acute intervention needed #chronic back pain -likely exacerbated by knees/OA -lumbar imaging: degenerative changes, wedging #morbid obesity -BMI 48.9 -needs to see bariatric sx as outpt - pt is interested #HTN- controlled -c/w HCTZ -started on lisinopril #health maintenance -a1c WNL -per lipid panel, ASCVD risk 5.1% borderline. start w/ dietary mods, then repeat lipid panel in 3 mo as outpt to determine if will need statin #F/E/N no IVF req at this time continue to follow lytes na controlled diet #PPX DVT: hep 5k sq tid #Dispo cont'd monitoring on med-surg awaiting rehab placement, possibly to [facility]. D/w JB
--- NOTE | 2019-04-22 17:37 | PN ---
Teaching Attending Note Name of Resident: Beronica Singh ATTENDING PHYSICIAN STATEMENT I saw and evaluated the patient. I reviewed the resident's note and discussed the case with the resident. I agree with the resident's findings and plan as documented. SUBJECTIVE: No complaints. OBJECTIVE: Vital Signs Period Temp Pulse Resp BP Sys/Dahl Pulse Ox Last 24 Hr 97.4 F-98.3 F 75-81 18-20 119-144/54-78 96-96 HEART: S1S2, RRR LUNGS: Clear ABDOMEN: Obese, soft, non-tender, non-distended, normal BS EXTREMITIES: 1+ edema Current Medications Generic Name Dose Route Start Last Admin Trade Name Freq PRN Reason Stop Dose Admin Acetaminophen 650 mg 04/18/19 15:48 04/21/19 23:51 Tylenol - PO 650 mg Q6H PRN Administration PAIN LEVEL 7 - 10 Heparin Sodium (Porcine) 5,000 unit 04/18/19 18:00 04/22/19 17:21 Heparin - SQ 5,000 unit Q8H-IV NICHOLAS Administration Hydrochlorothiazide 25 mg 04/19/19 10:00 04/22/19 09:34 Hctz - PO 25 mg DAILY NICHOLAS Administration Lidocaine 1 patch 04/22/19 10:00 04/22/19 09:34 Lidoderm Patch - TP 1 patch DAILY NICHOLAS Administration Lidocaine 1 patch 04/22/19 10:00 04/22/19 09:35 Lidoderm Patch - TP 1 patch DAILY NICHOLAS Administration Lisinopril 20 mg 04/20/19 10:00 04/22/19 09:34 Prinivil PO 20 mg DAILY NICHOLAS Administration Methyl Salicylate 1 applic 04/22/19 14:30 04/22/19 15:21 Israel-Ann - TP 1 applic DAILY NICHOLAS Administration Miscellaneous 1 each 04/18/19 22:00 04/21/19 22:35 Lidoderm Patch Removal MC 1 each DAILY@2200 NICHOLAS Administration Miscellaneous 1 each 04/21/19 22:00 04/21/19 22:35 Lidoderm Patch Removal MC 1 each DAILY@2200 NICHOLAS Administration Non-Formulary Medication 1 tab 04/18/19 22:00 Diclofenac Potassium [Diclofenac Potassium] PO BID NICHOLAS Non-Formulary Medication 100 mg 04/18/19 16:30 Doxycycline Monohydrate [Monodox] PO Q12H [facility] ASSESSMENT AND PLAN: This is a 68 year old woman with a history of HTN, OA of knees, multiple right knee surgeries complicated by infection, chronic back pain, obesity who presents for inability to ambulate and severe R knee pain that has gradually worsened over the last week. 1. Bilateral knee pain secondary to OA - Pain control with Lidoderm, VoltarenLaverneAnn - Continue PT 2. Chronic right knee infection - Continue doxycycline 3. Morbid obesity with BMI 48.9 4. Chronic back pain 5. HTN - Continue lisinopril, HCTZ 6. Disposition - Plan for discharge to rehab
[2019-04-22] MEDS: LIDOCAINE PATCH REMOVAL MC SCH ×2 (21:30)
[2019-04-23] MEDS: HEPARIN NA (PORCINE) 5,000 UNITS/ML 1ML VIAL SQ SCH ×3 (00:59→17:52)
[2019-04-23] MEDS: LISINOPRIL 20 MG TABLET (FP) PO SCH ×2 (09:35→10:26)
[2019-04-23] MEDS: HYDROCHLOROTHIAZIDE 25 MG TABLET (FP) PO SCH (09:35)
[2019-04-23] MEDS: LIDOCAINE 5% TOPICAL PATCH TP SCH ×2 (09:36)
[2019-04-23] MEDS: METHYL SALICYLATE/MENTHOL OINT 30 GM TUBE TP SCH (09:41)
--- NOTE | 2019-04-23 11:07 | CON.PSY ---
Psychiatry Consult Chief Complaint: 69 [place] 9old female seen for Psych eval. Patient repoprts having lost her Son an bismark ago and feels lonely. Family is far away. S he does not want to go to a [facility].. Symptoms: reports: Depressed Mood - Previous Psychiatric Treatment Outpatient: None Inpatient: None - Previous Substance Abuse Treatment Outpatient: None Inpatient: None - Current Medications Current Medications: Active Medications Acetaminophen (Tylenol -) 650 mg PO Q6H PRN PRN Reason: PAIN LEVEL 7 - 10 Last Admin: 04/21/19 23:51 Dose: 650 mg Heparin Sodium (Porcine) (Heparin -) 5,000 unit SQ Q8H-IV [facility] Last Admin: 04/23/19 09:35 Dose: 5,000 unit Hydrochlorothiazide (Hctz -) 25 mg PO DAILY [facility] Last Admin: 04/23/19 09:35 Dose: 25 mg Lidocaine (Lidoderm Patch -) 1 patch TP DAILY [facility] Last Admin: 04/23/19 09:36 Dose: 1 patch Lidocaine (Lidoderm Patch -) 1 patch TP DAILY [facility] Last Admin: 04/23/19 09:36 Dose: 1 patch Lisinopril (Prinivil) 20 mg PO DAILY [facility] Last Admin: 04/23/19 10:26 Dose: Not Given Methyl Salicylate (Israel-Ann -) 1 applic TP DAILY [facility] Last Admin: 04/23/19 09:41 Dose: 1 applic Miscellaneous (Lidoderm Patch Removal) 1 each MC DAILY@2200 [facility] Last Admin: 04/22/19 21:30 Dose: 1 each Miscellaneous (Lidoderm Patch Removal) 1 each MC DAILY@2200 [facility] Last Admin: 04/22/19 21:30 Dose: 1 each Non-Formulary Medication (Diclofenac Potassium [Diclofenac Potassium]) 1 tab PO BID [facility] Non-Formulary Medication (Doxycycline Monohydrate [Monodox]) 100 mg PO Q12H [facility] - Allergies Allergies: Allergies Allergy/AdvReac Type Severity Reaction Status Date / Time No Known Drug Allergies Allergy Verified 04/18/19 10:29 - Current Living Status Usual Living Arrangement: Alone - Current Mental Status Evaluation Appearance: Well Groomed Attitude: Cooperative - Affect Affect: Constrictive Appropriateness: Appropriate to Content - Mood Mood: Depressed - Speech/Language Expressive: Coherent - Psychomotor Activity Psychomotor Activity: Normal - Thought Process Thought Process: Intact - Thought Content Hallucinations: Absent Delusions: Absent - Self Perception Self Perception: No Impairment - Cognition Attention: Alert Orientation: Time Memory, Immediate Recall: Intact Memory, Short Term: 3/3 Memory, Remote with Promptin/3 - Concentration Serial Sevens Intact: No Simple Calculations Intact: Yes - Abstraction Proverb Interpretation: Intact Judgement: Intact - Insight Insight: Intact - Impulse Control Impulse Control: Good Control - Suicidal Ideation Suicidal Ideation: No - Homicidal Ideation Homicidal Ideation: No Assessment/Plan 1) Patient does not want any anti depressants at this time. 2) She is not suicidal at this time. 3) Refer to barrel charrer helper for some support in the community .
--- NOTE | 2019-04-23 11:34 | PN ---
Teaching Attending Note Name of Resident: Beronica Singh ATTENDING PHYSICIAN STATEMENT I saw and evaluated the patient. I reviewed the resident's note and discussed the case with the resident. I agree with the resident's findings and plan as documented. SUBJECTIVE: Patient reports pain is much better but she is still having difficulty walking. OBJECTIVE: Vital Signs Period Temp Pulse Resp BP Sys/Dahl Pulse Ox Last 24 Hr 97.3 F-98.2 F 76-102 16-20 115-147/54-78 96-97 HEART: S1S2, RRR LUNGS: Clear ABDOMEN: Obese, soft, non-tender, non-distended, normal BS EXTREMITIES: 1+ edema, surgical scar right knee Current Medications Generic Name Dose Route Start Last Admin Trade Name Freq PRN Reason Stop Dose Admin Acetaminophen 650 mg 04/18/19 15:48 04/21/19 23:51 Tylenol - PO 650 mg Q6H PRN Administration PAIN LEVEL 7 - 10 Heparin Sodium (Porcine) 5,000 unit 04/18/19 18:00 04/23/19 09:35 Heparin - SQ 5,000 unit Q8H-IV NICHOLAS Administration Hydrochlorothiazide 25 mg 04/19/19 10:00 04/23/19 09:35 Hctz - PO 25 mg DAILY NICHOLAS Administration Lidocaine 1 patch 04/22/19 10:00 04/23/19 09:36 Lidoderm Patch - TP 1 patch DAILY NICHOLAS Administration Lidocaine 1 patch 04/22/19 10:00 04/23/19 09:36 Lidoderm Patch - TP 1 patch DAILY NICHOLAS Administration Lisinopril 20 mg 04/20/19 10:00 04/23/19 10:26 Prinivil PO Not Given DAILY NICHOLSA Methyl Salicylate 1 applic 04/22/19 14:30 04/23/19 09:41 Israel-Ann - TP 1 applic DAILY NICHOLAS Administration Miscellaneous 1 each 04/18/19 22:00 04/22/19 21:30 Lidoderm Patch Removal MC 1 each DAILY@2200 NICHOLAS Administration Miscellaneous 1 each 04/21/19 22:00 04/22/19 21:30 Lidoderm Patch Removal MC 1 each DAILY@2200 NICHOLAS Administration Non-Formulary Medication 1 tab 04/18/19 22:00 Diclofenac Potassium [Diclofenac Potassium] PO BID NICHOLAS Non-Formulary Medication 100 mg 04/18/19 16:30 Doxycycline Monohydrate [Monodox] PO Q12H [facility] ASSESSMENT AND PLAN: This is a 69 year old woman with a history of HTN, OA of knees, multiple right knee surgeries complicated by infection, chronic back pain, obesity who presents for inability to ambulate and severe R knee pain that has gradually worsened over the last week. 1. Bilateral knee pain secondary to OA - Pain control with Lidoderm, Voltaren, Israel-Ann - Continue PT 2. Chronic right knee infection - Continue doxycycline 3. Morbid obesity with BMI 48.9 4. Chronic back pain 5. HTN - Continue lisinopril, HCTZ 6. Disposition - Plan for discharge to rehab
--- NOTE | 2019-04-23 12:07 | CON.GI ---
Consult Consult Specialty:: Gastroenterology Referred by:: Beronica Singh MD Reason for Consultation:: Colon cancer screening - History of Present Illness Chief Complaint: Constipation History of Present Illness: 69F is admitted with an inflammed right knee. She also has new onset constipation with occasional lower abdominal colicky pain. No overt bleeding. She last had a colonoscopy on when a right colon angiodysplasia and sigmoid diverticulosis was found. - History Source History Provided By: Patient Limitations to Obtaining History: No Limitations - Past Medical History Cardio/Vascular: Yes: HTN Gastrointestinal: Yes: Constipation, Diverticulosis, Other (Right colon angiodysplasia) Hepatobiliary: Yes: Cholelithiasis, Other (fatty liver, likely DE) Musculoskeletal: Yes: Other (Degenerative arthritis) Rheumatology: Yes: Other (Chronic elevation of CPK. Inflammatory myositis or other myopathies were ruled out. 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.) Endocrine: Yes: Other (Morbid obesity) - Past Surgical History Past Surgical History: Yes: Colonoscopy, Joint Replacement (S/P right total knee replacement with recurring infections and subsequent surgeries) - Alcohol/Substance Use Hx Alcohol Use: No History of Substance Use: reports: None - Smoking History Smoking history: Former smoker Have you smoked in the past 12 months: No Aproximately how many cigarettes per day: 0 If you are a former smoker, when did you quit?: 2007 - Social History Usual Living Arrangement: Alone ADL: Family Assistance (until her son ) Occupation: retired [employer] I-Works dept Place of : Other ([facility]) Came to [place] (year): 30 History of Recent Travel: No Home Medications - Allergies Allergies/Adverse Reactions: Allergies Allergy/AdvReac Type Severity Reaction Status Date / Time No Known Drug Allergies Allergy Verified 04/18/19 10:29 - Home Medications Home Medications: Ambulatory Orders Doxycycline Monohydrate [Monodox] 100 mg PO Q12H 03/01/18 Hydrochlorothiazide [Hctz -] 25 mg PO DAILY 03/02/18 Diclofenac Potassium 1 tab PO BID 12/09/18 Family Medical History Other Family History: morbidly obese son . father's cause of is unknown. mother had DJD as well but lived to Review of Systems - Review of Systems Constitutional: reports: No Symptoms Eyes: reports: No Symptoms HENT: reports: No Symptoms Neck: reports: No Symptoms Cardiovascular: reports: No Symptoms Respiratory: reports: No Symptoms Gastrointestinal: reports: Abdominal Pain, Constipation Musculoskeletal: reports: Other (wheechair ridden by debilitated right knee) Physical Exam-GI Vital Signs: Vital Signs Temperature 98 F 04/23/19 10:00 Pulse Rate 86 04/23/19 10:00 Respiratory Rate 16 04/23/19 10:00 Blood Pressure 123/60 04/23/19 10:00 O2 Sat by Pulse Oximetry (%) 96 04/23/19 09:00 CBC,CMP WBC 6.9 K/mm3 (4.0-10.0) 04/19/19 07:05 RBC 3.83 M/mm3 (3.60-5.2) 04/19/19 07:05 Hgb 12.3 GM/dL (10.7-15.3) 04/19/19 07:05 Hct 36.8 % (32.4-45.2) 04/19/19 07:05 MCV 96.2 fl (80-96) H 04/19/19 07:05 MCH 32.3 pg (25.7-33.7) 04/19/19 07:05 MCHC 33.5 g/dl (32.0-36.0) 04/19/19 07:05 RDW 13.7 % (11.6-15.6) 04/19/19 07:05 Plt Count 162 K/MM3 (134-434) 04/19/19 07:05 MPV 9.0 fl (7.5-11.1) 04/19/19 07:05 Absolute Neuts (auto) 4.6 K/mm3 (1.5-8.0) 04/19/19 07:05 Neutrophils % 67.0 % (42.8-82.8) 04/19/19 07:05 Lymphocytes % 21.6 % (8-40) D 04/19/19 07:05 Monocytes % 6.2 % (3.8-10.2) 04/19/19 07:05 Eosinophils % 4.7 % (0-4.5) H 04/19/19 07:05 Basophils % 0.5 % (0-2.0) 04/19/19 07:05 Nucleated RBC % 0 % (0-0) 04/19/19 07:05 Sodium 141 mmol/L (136-145) 04/20/19 08:00 Potassium 3.6 mmol/L (3.5-5.1) 04/20/19 08:00 Chloride 108 mmol/L (98-107) H 04/20/19 08:00 Carbon Dioxide 25 mmol/L (21-32) 04/20/19 08:00 Anion Gap 9 MMOL/L (8-16) 04/20/19 08:00 BUN 14.3 mg/dL (7-18) 04/20/19 08:00 Creatinine 0.7 mg/dL (0.55-1.3) 04/20/19 08:00 Est GFR (CKD-EPI)AfAm 103.91 04/20/19 08:00 Est GFR (CKD-EPI)NonAf 89.65 04/20/19 08:00 Random Glucose 91 mg/dL (74-106) 04/20/19 08:00 Hemoglobin A1c % 5.8 % (4.2-6.3) 04/18/19 17:00 Calcium 8.9 mg/dL (8.5-10.1) 04/20/19 08:00 Phosphorus 3.2 mg/dL (2.5-4.9) 04/19/19 07:05 Magnesium 2.4 mg/dL (1.8-2.4) 04/19/19 07:05 Total Bilirubin 0.6 mg/dL (0.2-1) 04/18/19 14:38 AST 103 U/L (15-37) H 04/18/19 14:38 ALT 96 U/L (13-61) H 04/18/19 14:38 Alkaline Phosphatase 72 U/L (45-117) 04/18/19 14:38 Total Protein 7.3 g/dl (6.4-8.2) 04/18/19 14:38 Albumin 3.8 g/dl (3.4-5.0) 04/18/19 14:38 Triglycerides 98 mg/dL (0-150) 04/18/19 17:00 Cholesterol 136 mg/dL (50-200) 04/18/19 17:00 Total LDL Cholesterol 72 mg/dL (5-100) 04/18/19 17:00 HDL Cholesterol 44 mg/dL (40-60) 04/18/19 17:00 Current Medications Generic Name Dose Route Start Last Admin Trade Name Freq PRN Reason Stop Dose Admin Acetaminophen 650 mg 04/18/19 15:48 04/21/19 23:51 Tylenol - PO 650 mg Q6H PRN Administration PAIN LEVEL 7 - 10 Bisacodyl 20 mg 04/24/19 18:00 Dulcolax - PO 04/24/19 18:01 ONCE ONE Heparin Sodium (Porcine) 5,000 unit 04/18/19 18:00 04/23/19 09:35 Heparin - SQ 5,000 unit Q8H-IV NICHOLAS Administration Hydrochlorothiazide 25 mg 04/19/19 10:00 04/23/19 09:35 Hctz - PO 25 mg DAILY NICHOLAS Administration Lidocaine 1 patch 04/22/19 10:00 04/23/19 09:36 Lidoderm Patch - TP 1 patch DAILY NICHOLAS Administration Lidocaine 1 patch 04/22/19 10:00 04/23/19 09:36 Lidoderm Patch - TP 1 patch DAILY NICHOLAS Administration Lisinopril 20 mg 04/20/19 10:00 04/23/19 10:26 Prinivil PO Not Given DAILY NICHOLAS Methyl Salicylate 1 applic 04/22/19 14:30 04/23/19 09:41 Israel-Ann - TP 1 applic DAILY NICHOLAS Administration Miscellaneous 1 each 04/18/19 22:00 04/22/19 21:30 Lidoderm Patch Removal MC 1 each DAILY@2200 NICHOLAS Administration Miscellaneous 1 each 04/21/19 22:00 04/22/19 21:30 Lidoderm Patch Removal MC 1 each DAILY@2200 NICHOLAS Administration Non-Formulary Medication 1 tab 04/18/19 22:00 Diclofenac Potassium [Diclofenac Potassium] PO BID NICHOLAS Non-Formulary Medication 100 mg 04/18/19 16:30 Doxycycline Monohydrate [Monodox] PO Q12H NICHOLAS Polyethylene Glycol 17 gm 04/23/19 14:00 Miralax (For Daily Use) - PO TID NICHOLAS Polyethylene Glycol/Electrolytes 4,000 ml 04/24/19 09:00 Golytely Solution - PO 04/24/19 09:01 ONCE ONE Constitutional: Yes: Calm Eyes: Yes: Conjunctiva Clear HENT: Yes: Normocephalic Neck: Yes: Trachea Midline Cardiovascular: Yes: Gallop Respiratory: Yes: CTA Bilaterally ...Auscultate: Yes: Normoactive Bowel Sounds ...Palpate: Yes: Soft, Other (nontender) ...Rectal Exam: Yes: Guaiac Positive (impacted with hard brown guaiac positive stool) Labs: CBC, BMP 04/19/19 07:05 04/20/19 08:00 INR, PTT INR 1.04 (0.83-1.09) 04/18/19 17:00 Problem List - Problems (1) Occult blood in stools Code(s): R19.5 - OTHER FECAL ABNORMALITIES (2) Anemia Code(s): D64.9 - ANEMIA, UNSPECIFIED (3) Abnormal liver function test Code(s): R94.5 - ABNORMAL RESULTS OF LIVER FUNCTION STUDIES (4) Constipation Code(s): K59.00 - CONSTIPATION, UNSPECIFIED (5) Altered bowel function Code(s): R19.8 - OTH SYMPTOMS AND SIGNS INVOLVING THE DGSTV SYS AND ABDOMEN (6) Morbid (severe) obesity due to excess calories Code(s): E66.01 - MORBID (SEVERE) OBESITY DUE TO EXCESS CALORIES (7) Gallstones Code(s): K80.20 - CALCULUS OF GALLBLADDER W/O CHOLECYSTITIS W/O OBSTRUCTION (8) Fatty (change of) liver, not elsewhere classified Code(s): K76.0 - FATTY (CHANGE OF) LIVER, NOT ELSEWHERE CLASSIFIED (9) Angiodysplasia of colon Code(s): K55.20 - ANGIODYSPLASIA OF COLON WITHOUT HEMORRHAGE (10) Diverticulosis Code(s): K57.90 - DVRTCLOS OF INTEST, PART UNSP, W/O PERF OR ABSCESS W/O BLEED (11) Bone infection, knee Code(s): M86.9 - OSTEOMYELITIS, UNSPECIFIED (12) History of prosthetic unicompartmental arthroplasty of right knee Code(s): Z96.651 - PRESENCE OF RIGHT ARTIFICIAL KNEE JOINT Assessment/Plan Assessment - Given her occult bleeding, mild anemia, altered bowel habits towards constipation and lower abdominal pains panendoscopy is indicated to exclude a GI malignancy, silent ulcer and GERD and a diverticular stricture - Suspect DE as cause of elevated transaminases but will order sonogram and liver studies - Gallstones, asymptomatic Plan: -- I have advised Nell to undergo both an EGD and a colonosccopy. I have discussed kaya potential for such complications as perforation and hemorrhage. She has granted an informed consent. Bowel prep ordered -- Sonogram and liver studies
--- NOTE | 2019-04-23 13:47 | PN ---
Progress Note (short form) - Note Progress Note: Hospitalist Medicine Has been applying bengay to knees, with improvement. Has been feeling depressed lately. "I have nobody to talk to." Requesting psych. Would also like colonoscopy done during visit. GI consulted Vitals 04/23/19 10:00 Temperature 98 F Pulse Rate 86 Respiratory 16 Rate Blood Pressure 123/60 Physical Exam general: morbidly obese, in NAD HEENT: ncat, perrla neck: supple cardio: distant heart sounds 2/2 body habitus, s1, s2 RRR. no r/m/g pulm: cta b/l. no accessory m usage abdomen: morbidly obese, nontender, nondistended LE: 2+ pulses, 1+ pitting edema (chronic per pt). +scarring over R knee, 2/2 past sx. +limited weight bearing Last Laboratory Tests 04/20/19 08:00 Sodium 141 Potassium 3.6 Chloride 108 H Carbon Dioxide 25 Anion Gap 9 BUN 14.3 Creatinine 0.7 Random Glucose 91 Imaging 04/18/19: R knee XR: no fracture, subluxation or blastic or lytic changes 04/18/19: Lumbar spine XR: 5 lumbar type vertebral bodies with scoliosis, degenerative changs, intact paraspinal soft tissues and patent SI joints. straightening of lateral and spot view - degenerative changes, wedging. vacuum phenomena at several levels and narrowing of lower intervertebral disc spaces, no sign fracture or subluxation. heavy aotic and iliac vascular calcifications ASSESSMENT/PLAN: 68 y/o F with PMH HTN, OA of knees, multiple revisions of R knee, recent abx spacer 2017 (on chronic doxy at home), who presents for inability to ambulate and severe R knee pain that has gradually worsened over the last week. #inability to ambulate 2/2 OA #intractable R knee pain -will c/w home diclofenac -c/w home doxy; has hx abx spacer -will add tylenol PRN, lidocaine patch to both knees -if still uncontrolled pain, can add tramadol PRN (has not needed) -added bengay ointment per pt request -physical therapy -will need rehab placement, awaiting [facility] -ortho consult: Dr. Boogie; no acute intervention needed #chronic back pain -likely exacerbated by knees/OA -lumbar imaging: degenerative changes, wedging #Colon CA screening -has hx of R colon angiodysplasia, sigmoid diverticulosis -for EGD and colonoscopy tomorrow (04/24) -bowel prep tonight -NPO after MN -GI: Dr. Miles #Transaminitis -f/u abd sono -f/u hepatic, iron studies, AFP #morbid obesity -BMI 48.9 -needs to see bariatric sx as outpt - pt is interested #HTN- controlled -c/w HCTZ -started on lisinopril #health maintenance -a1c WNL -per lipid panel, ASCVD risk 5.1% borderline. start w/ dietary mods, then repeat lipid panel in 3 mo as outpt to determine if will need statin #F/E/N no IVF req at this time continue to follow lytes na controlled diet. NPO after MN fo scope #PPX DVT: hep 5k sq tid, held before procedure (order is in) #Dispo cont'd monitoring on med-surg awaiting rehab placement, possibly to [facility]. D/w SW NPO after MN for EGD/Colonoscopy tomorrow (04/24)
[2019-04-23] MEDS: POLYETHYLENE GLYCOL 3350 119 GM BTL PO SCH ×2 (14:15→22:23)
[2019-04-23] MEDS: LIDOCAINE PATCH REMOVAL MC SCH ×2 (22:23)
[2019-04-24] MEDS: HEPARIN NA (PORCINE) 5,000 UNITS/ML 1ML VIAL SQ SCH ×2 (02:28→11:27)
[2019-04-24] MEDS: POLYETHYLENE GLYCOL 3350 119 GM BTL PO SCH ×3 (06:16→21:50)
[2019-04-24] MEDS ORDERED: PEG 3350/NA SULF BICARB CL/KCL 4000 ML SOLN.RECON PO ONE (09:00)
[2019-04-24 09:19] LABS: BASO % 0.5 % (0-2.0); EOS % 5.5 % (0-4.5); HEMATOCRIT 36.7 % (32.4-45.2); HEMOGLOBIN 12.3 GM/dL (10.7-15.3); LYMPH % 21.3 % (8-40); MCH 32.3 pg (25.7-33.7); MCHC 33.6 g/dl (32.0-36.0); MEAN CELL VOLUME 95.9 fl (80-96); MEAN PLT VOLUME 9.2 fl (7.5-11.1); MONO % 6.6 % (3.8-10.2); NEUT % 66.1 % (42.8-82.8); PLATELET COUNT 158 K/MM3 (134-434); RBC 3.82 M/mm3 (3.60-5.2); RDW 13.4 % (11.6-15.6); WHITE BLOOD COUNT 6.9 K/mm3 (4.0-10.0)
--- NOTE | 2019-04-24 09:22 | PN ---
Progress Note (short form) - Note Progress Note: Came to see patient, not in room, will follow up if needed. The orthopedic plan is for her to follow up with her orthopedist at [facility], Dr Jain, on 04-30-2019.
[2019-04-24 09:49] LABS: ALBUMIN 3.7 g/dl (3.4-5.0); BILIRUBIN,DIRECT 0.2 mg/dL (0.0-0.2); BILIRUBIN,TOTAL 0.8 mg/dL (0.2-1); BLOOD UREA NITROGEN 22.1 mg/dL (7-18); CALCIUM 8.9 mg/dL (8.5-10.1); CREATININE 0.9 mg/dL (0.55-1.3); MAGNESIUM 2.2 mg/dL (1.8-2.4); PHOSPHOROUS 3.8 mg/dL (2.5-4.9); POTASSIUM 3.9 mmol/L (3.5-5.1); TOT PROT 6.4 g/dl (6.4-8.2)
[2019-04-24] MEDS ORDERED: PT OWN MED DRAWER 7, Y5N ONE (10:01)
[2019-04-24] MEDS: METHYL SALICYLATE/MENTHOL OINT 30 GM TUBE TP SCH (11:27)
[2019-04-24] MEDS: HYDROCHLOROTHIAZIDE 25 MG TABLET (FP) PO SCH (11:27)
[2019-04-24] MEDS: LIDOCAINE 5% TOPICAL PATCH TP SCH ×2 (11:27→11:28)
[2019-04-24] MEDS: LISINOPRIL 20 MG TABLET (FP) PO SCH (11:28)
--- NOTE | 2019-04-24 15:14 | PN ---
Progress Note (short form) - Note Progress Note: Hospitalist Medicine Bowel prep today. For colonoscopy (and EGD) tomorrow (04/25) Vitals 04/24/19 12:00 Temperature 97.9 F Respiratory 20 Rate Blood Pressure 130/58 L Physical Exam general: morbidly obese, in NAD. resting HEENT: ncat, perrla neck: supple cardio: s1, s2 RRR. no r/m/g pulm: cta b/l. no accessory m usage abdomen: morbidly obese, nontender, nondistended LE: 2+ pulses, 1+ pitting edema (chronic per pt). +scarring over R knee, 2/2 past sx. +limited weight bearing Laboratory Tests 04/24/19 04/24/19 04/24/19 08:30 08:30 08:30 WBC 6.9 Hgb 12.3 Hct 36.7 Plt Count 158 Sodium 138 Potassium 3.9 Chloride 105 Carbon Dioxide 25 Anion Gap 7 L BUN 22.1 H Creatinine 0.9 Unsaturated IBC 177 L AST 116 H ALT 123 H ARMINDA Screen Pending Smooth Musc &BACK ORDER CLERK Intrp Pending Tiss Transglutamin IgG Pending Tiss Transglutamin IgA Pending Hep A IgM Ab Confirm Pending Hepatitis A Ab Total Pending Hep Bs Antigen Pending Hep Bs Antibody Pending Hep B Core Total Ab Pending Hep B Core IgM Ab Pending Hepatitis Be Antibody Pending Hepatitis Be Antigen Pending Hep C Ab Diagnostic Pending Imaging 04/18/19: R knee XR: no fracture, subluxation or blastic or lytic changes 04/18/19: Lumbar spine XR: 5 lumbar type vertebral bodies with scoliosis, degenerative changs, intact paraspinal soft tissues and patent SI joints. straightening of lateral and spot view - degenerative changes, wedging. vacuum phenomena at several levels and narrowing of lower intervertebral disc spaces, no sign fracture or subluxation. heavy aotic and iliac vascular calcifications 04/24/19: abd sono: multiple gall stones w/o sono evidence of acute cholecystitis. mild hepatomegaly w/ fatty infiltration vs. hepatocellular dz ASSESSMENT/PLAN: 68 y/o F with PMH HTN, OA of knees, multiple revisions of R knee, recent abx spacer 2018 (on chronic doxy at home), who presents for inability to ambulate and severe R knee pain that has gradually worsened over the last week. #inability to ambulate 2/2 OA #intractable R knee pain -will c/w home diclofenac -c/w home doxy; has hx abx spacer -will add tylenol PRN, lidocaine patch to both knees -if still uncontrolled pain, can add tramadol PRN (has not needed) -added bengay ointment per pt request -physical therapy -will need rehab placement- denied by [facility], for SNF per SW -ortho consult: Dr. oBogie; no acute intervention needed #chronic back pain -likely exacerbated by knees/OA -lumbar imaging: degenerative changes, wedging #Colon CA screening -has hx of R colon angiodysplasia, sigmoid diverticulosis -for EGD and colonoscopy tomorrow (04/25) -bowel prep today -NPO after MN -GI: Dr. Miles #Transaminitis -abd sono results noted above -f/u hepatic, iron studies, AFP #morbid obesity -BMI 48.9 -needs to see bariatric sx as outpt - pt is interested #HTN- controlled -c/w HCTZ -started on lisinopril #health maintenance -a1c WNL -per lipid panel, ASCVD risk 5.1% borderline. start w/ dietary mods, then repeat lipid panel in 3 mo as outpt to determine if will need statin #F/E/N no IVF req at this time continue to follow lytes na controlled diet. NPO after MN for scope #PPX DVT: hep held for scope tomorrow #Dispo cont'd monitoring on med-surg denied by [facility]. for SNF placement per SW NPO after MN for EGD/Colonoscopy tomorrow (04/25)
[2019-04-24] MEDS ORDERED: BISACODYL 5 MG TABLET.DR (FP) PO ONE (18:00)
--- NOTE | 2019-04-24 18:21 | PN ---
Teaching Attending Note Name of Resident: Beronica Singh ATTENDING PHYSICIAN STATEMENT I saw and evaluated the patient. I reviewed the resident's note and discussed the case with the resident. I agree with the resident's findings and plan as documented. SUBJECTIVE: Seen and examined at bedside, no acute events overnight. No cp, sob, palpitations. OBJECTIVE: Vital Signs - 24 hr 04/23/19 04/24/19 04/24/19 20:53 06:05 09:00 Temperature 98.3 F Pulse Rate 86 Respiratory 18 20 20 Rate Blood Pressure 124/76 O2 Sat by Pulse 96 96 Oximetry (%) 04/24/19 04/24/19 12:00 14:55 Temperature 97.9 F 97.8 F Pulse Rate 70 Respiratory 20 20 Rate Blood Pressure 130/58 L 113/57 L O2 Sat by Pulse Oximetry (%) PE: GENERAL NAD HEART: S1S2, RRR LUNGS: CTA B/L, unlabored ABDOMEN: Obese, soft, non-tender, non-distended, normal BS EXTREMITIES: 1+ edema Current Medications Generic Name Dose Route Start Last Admin Trade Name Freq PRN Reason Stop Dose Admin Acetaminophen 650 mg 04/18/19 15:48 04/21/19 23:51 Tylenol - PO 650 mg Q6H PRN Administration PAIN LEVEL 7 - 10 Heparin Sodium (Porcine) 5,000 unit 04/18/19 18:00 04/24/19 11:27 Heparin - SQ 5,000 unit Q8H-IV NICHOLAS Administration Hydrochlorothiazide 25 mg 04/19/19 10:00 04/24/19 11:27 Hctz - PO 25 mg DAILY NICHOLAS Administration Lidocaine 1 patch 04/22/19 10:00 04/24/19 11:27 Lidoderm Patch - TP 1 patch DAILY NICHOLAS Administration Lidocaine 1 patch 04/22/19 10:00 04/24/19 11:28 Lidoderm Patch - TP 1 patch DAILY NICHOLAS Administration Lisinopril 20 mg 04/20/19 10:00 04/24/19 11:28 Prinivil PO 20 mg DAILY NICHOLAS Administration Methyl Salicylate 1 applic 04/22/19 14:30 04/24/19 11:27 Israel-Ann - TP 1 applic DAILY NICHOLAS Administration Miscellaneous 1 each 04/18/19 22:00 04/23/19 22:23 Lidoderm Patch Removal MC 1 each DAILY@2200 NICHOLAS Administration Miscellaneous 1 each 04/21/19 22:00 04/23/19 22:23 Lidoderm Patch Removal MC 1 each DAILY@2200 [facility] Administration Non-Formulary Medication 1 tab 04/18/19 22:00 Diclofenac Potassium [Diclofenac Potassium] PO BID [facility] Non-Formulary Medication 100 mg 04/18/19 16:30 Doxycycline Monohydrate [Monodox] PO Q12H [facility] Polyethylene Glycol 17 gm 04/23/19 14:00 04/24/19 06:16 Miralax (For Daily Use) - PO 17 gm TID [facility] Administration Laboratory Results - last 24 hr 04/24/19 04/24/19 08:30 08:30 WBC 6.9 RBC 3.82 Hgb 12.3 Hct 36.7 MCV 95.9 MCH 32.3 MCHC 33.6 RDW 13.4 Plt Count 158 MPV 9.2 Absolute Neuts (auto) 4.5 Neutrophils % 66.1 Lymphocytes % 21.3 Monocytes % 6.6 Eosinophils % 5.5 H Basophils % 0.5 Nucleated RBC % 0 Sodium 138 Potassium 3.9 Chloride 105 Carbon Dioxide 25 Anion Gap 7 L BUN 22.1 H Creatinine 0.9 Est GFR (CKD-EPI)AfAm 76.68 Est GFR (CKD-EPI)NonAf 66.16 Random Glucose 89 Calcium 8.9 Phosphorus 3.8 Magnesium 2.2 Iron 79 TIBC 256 Iron Saturation 30 Unsaturated IBC 177 L Ferritin 35.1 Total Bilirubin 0.8 Direct Bilirubin 0.2 AST 116 H ALT 123 H Alkaline Phosphatase 63 Total Protein 6.4 Albumin 3.7 ASSESSMENT AND PLAN: 69 year old woman with a history of HTN, OA of knees, multiple right knee surgeries complicated by infection, chronic back pain, obesity who presents for inability to ambulate and severe R knee pain that has gradually worsened over the last week. 1. Knee pain secondary to OA -cw PT and pain control 2. Chronic right knee infection -continue doxycycline 3. Morbid obesity with BMI 48.9 4. Chronic back pain 5. HTN-continue lisinopril, HCTZ 6. Abdominal pain, mild anemia, altered bowel [id number] and a colonoscopy planned for AM dispo to rehab
--- NOTE | 2019-04-24 21:30 | PN.GI ---
GI Progress Note Subjective: GI NOte: Adriana has not yet completed her Golytely prep and I have encouraged her to do so. No bleeding has occurred. Her sonogram reveals multiple small gallstones but no duct dilation. Her liver is fatty. - Objective Vital Signs: Vital Signs Temperature 97.4 F L 04/24/19 20:09 Pulse Rate 85 04/24/19 20:09 Respiratory Rate 20 04/24/19 14:55 Blood Pressure 125/69 04/24/19 20:09 O2 Sat by Pulse Oximetry (%) 96 04/24/19 09:00 Laboratory Tests 11/08/13 01/06/16 02/28/18 06:00 11:10 13:34 Ferritin AST 20 D 77 H D 64 H ALT 21 D 98 H D 03/02/18 09/02/18 04/18/19 07:30 14:03 14:38 Ferritin AST 78 H 103 H ALT 46 80 H 96 H 04/24/19 08:30 Ferritin 35.1 AST 116 H ALT 123 H Constitutional: No Distress ...Auscultate: Yes: Hyperactive Bowel Sounds ...Palpate: Yes: Soft, Other (nontender) Labs: CBC, BMP 04/24/19 08:30 04/24/19 08:30 INR, PTT INR 1.04 (0.83-1.09) 04/18/19 17:00 Assessment/Plan Assessment - Given her occult bleeding, mild anemia, altered bowel habits towards constipation and lower abdominal pains panendoscopy is indicated to exclude a GI malignancy, silent ulcer and GERD and a diverticular stricture - Suspect DE as cause of elevated transaminases given her sonogram findings but await other liver studies - Gallstones, asymptomatic Plan: -- For EGD and colonoscopy tomorrow -- Await liver studies Problem List - Problems (1) Occult blood in stools Code(s): R19.5 - OTHER FECAL ABNORMALITIES (2) Anemia Code(s): D64.9 - ANEMIA, UNSPECIFIED (3) Abnormal liver function test Code(s): R94.5 - ABNORMAL RESULTS OF LIVER FUNCTION STUDIES (4) Constipation Code(s): K59.00 - CONSTIPATION, UNSPECIFIED (5) Altered bowel function Code(s): R19.8 - OTH SYMPTOMS AND SIGNS INVOLVING THE DGSTV SYS AND ABDOMEN (6) Morbid (severe) obesity due to excess calories Code(s): E66.01 - MORBID (SEVERE) OBESITY DUE TO EXCESS CALORIES (7) Gallstones Code(s): K80.20 - CALCULUS OF GALLBLADDER W/O CHOLECYSTITIS W/O OBSTRUCTION (8) Fatty (change of) liver, not elsewhere classified Code(s): K76.0 - FATTY (CHANGE OF) LIVER, NOT ELSEWHERE CLASSIFIED (9) Angiodysplasia of colon Code(s): K55.20 - ANGIODYSPLASIA OF COLON WITHOUT HEMORRHAGE (10) Diverticulosis Code(s): K57.90 - DVRTCLOS OF INTEST, PART UNSP, W/O PERF OR ABSCESS W/O BLEED (11) Bone infection, knee Code(s): M86.9 - OSTEOMYELITIS, UNSPECIFIED (12) History of prosthetic unicompartmental arthroplasty of right knee Code(s): Z96.651 - PRESENCE OF RIGHT ARTIFICIAL KNEE JOINT
[2019-04-24] MEDS: LIDOCAINE PATCH REMOVAL MC SCH ×2 (21:45)
[2019-04-25] MEDS: POLYETHYLENE GLYCOL 3350 119 GM BTL PO SCH ×2 (06:32→15:49)
--- NOTE | 2019-04-25 13:57 | PN ---
Progress Note (short form) - Note Progress Note: GI NOte: Please see EGD and colonoscopy reports. Multiple antral ulcers were found suggesting NSAID effect. Cecal and right colon angiodypslasias may also be contributing to the anemia and bleeding. Findings were discussed with Nell and I have advised a repeat EGD in 3 months to exclude a malignant gastric ulcer. No GI objections to discharge. Dr Potter will be covering. Will pursue Fibroscan to exclude DE related cirrhosis when she returns to the office. Problem List - Problems (1) Occult blood in stools Code(s): R19.5 - OTHER FECAL ABNORMALITIES (2) Anemia Code(s): D64.9 - ANEMIA, UNSPECIFIED (3) Abnormal liver function test Code(s): R94.5 - ABNORMAL RESULTS OF LIVER FUNCTION STUDIES (4) Constipation Code(s): K59.00 - CONSTIPATION, UNSPECIFIED (5) Altered bowel function Code(s): R19.8 - OTH SYMPTOMS AND SIGNS INVOLVING THE DGSTV SYS AND ABDOMEN (6) Morbid (severe) obesity due to excess calories Code(s): E66.01 - MORBID (SEVERE) OBESITY DUE TO EXCESS CALORIES (7) Gallstones Code(s): K80.20 - CALCULUS OF GALLBLADDER W/O CHOLECYSTITIS W/O OBSTRUCTION (8) Fatty (change of) liver, not elsewhere classified Code(s): K76.0 - FATTY (CHANGE OF) LIVER, NOT ELSEWHERE CLASSIFIED (9) Angiodysplasia of colon Code(s): K55.20 - ANGIODYSPLASIA OF COLON WITHOUT HEMORRHAGE (10) Diverticulosis Code(s): K57.90 - DVRTCLOS OF INTEST, PART UNSP, W/O PERF OR ABSCESS W/O BLEED (11) Bone infection, knee Code(s): M86.9 - OSTEOMYELITIS, UNSPECIFIED (12) History of prosthetic unicompartmental arthroplasty of right knee Code(s): Z96.651 - PRESENCE OF RIGHT ARTIFICIAL KNEE JOINT
[2019-04-25 14:07] LABS: TRANSGLUTAMINASE IGA < 2 U/mL (0-3); TRANSGLUTAMINASE IGG < 2 U/mL (0-5)
[2019-04-25 15:29] VITALS: TEMP 98.4
[2019-04-25] MEDS: HYDROCHLOROTHIAZIDE 25 MG TABLET (FP) PO SCH (15:41)
[2019-04-25] MEDS: LISINOPRIL 20 MG TABLET (FP) PO SCH (15:41)
--- NOTE | 2019-04-25 15:42 | DS ---
Physical Exam: SUBJECTIVE: Patient seen and examined at bedside. Feeling well. Ready to go to the facility for rehab. Improved pain in knees. OBJECTIVE: Vital Signs Period Temp Pulse Resp BP Sys/Dahl Pulse Ox Last 24 Hr 97.4 F-98.7 F 77-85 17-20 83-146/41-74 96-97 Physical Exam general: morbidly obese, in NAD. resting HEENT: ncat, perrla neck: supple cardio: s1, s2 RRR. no r/m/g pulm: cta b/l. no accessory m usage abdomen: morbidly obese, nontender, nondistended LE: 2+ pulses, 1+ pitting edema (chronic per pt). +scarring over R knee, 2/2 past sx. +limited weight bearing LABS Laboratory Results - last 24 hr 04/24/19 08:30 Tumor Marker AFP 1.9 Tiss Transglutamin IgG < 2 Tiss Transglutamin IgA < 2 Hep C Ab Diagnostic 0.1 04/18/19 04/19/19 04/24/19 14:38 07:05 08:30 WBC 8.5 6.9 Hgb 12.4 12.3 Hct 36.6 36.8 Plt Count 183 162 Haptoglobin Pending 04/24/19 08:30 WBC 6.9 Hgb 12.3 Hct 36.7 Plt Count 158 Haptoglobin 04/18/19 04/18/19 04/19/19 17:00 17:00 07:05 BUN 16.2 Creatinine 0.8 Random Glucose 84 Hemoglobin A1c % 5.8 Unsaturated IBC Ferritin Total Bilirubin Direct Bilirubin AST ALT Alkaline Phosphatase Total Protein Albumin Triglycerides 98 Cholesterol 136 Total LDL Cholesterol 72 HDL Cholesterol 44 Hep A IgM Ab Confirm Hepatitis A Ab Total Hep Bs Antigen Hep Bs Antibody Hep B Core Total Ab Hep B Core IgM Ab Hepatitis Be Antibody Hepatitis Be Antigen Hep C Ab Diagnostic 04/20/19 04/24/19 04/24/19 08:00 08:30 08:30 BUN 14.3 22.1 H Creatinine 0.7 0.9 Random Glucose 91 89 Hemoglobin A1c % Unsaturated IBC 177 L Ferritin 35.1 Total Bilirubin 0.8 Direct Bilirubin 0.2 AST 116 H ALT 123 H Alkaline Phosphatase 63 Total Protein 6.4 Albumin 3.7 Triglycerides Cholesterol Total LDL Cholesterol HDL Cholesterol Hep A IgM Ab Confirm Pending Hepatitis A Ab Total Pending Hep Bs Antigen Pending Hep Bs Antibody Pending Hep B Core Total Ab Pending Hep B Core IgM Ab Pending Hepatitis Be Antibody Pending Hepatitis Be Antigen Pending Hep C Ab Diagnostic 0.1 Imaging 04/18/19: R knee XR: no fracture, subluxation or blastic or lytic changes 04/18/19: Lumbar spine XR: 5 lumbar type vertebral bodies with scoliosis, degenerative changs, intact paraspinal soft tissues and patent SI joints. straightening of lateral and spot view - degenerative changes, wedging. vacuum phenomena at several levels and narrowing of lower intervertebral disc spaces, no sign fracture or subluxation. heavy aotic and iliac vascular calcifications 04/24/19: abd sono: multiple gall stones w/o sono evidence of acute cholecystitis. mild hepatomegaly w/ fatty infiltration vs. hepatocellular dz HOSPITAL COURSE: Date of Admission:04/18/19 Date of Discharge: 04/25/19 68 y/o F with PMH HTN, OA of knees, multiple revisions of R knee, recent abx spacer 2018 (on chronic doxy at home), who presents for inability to ambulate and severe R knee pain that has gradually worsened over the last week. #inability to ambulate 2/2 OA #intractable R knee pain -d/c home diclofenac -c/w home doxy; has hx abx spacer -will add tylenol PRN, can go with voltaren gel apply to knees as needed -added bengay ointment per pt request -physical therapy -will need rehab -ortho consult: Dr. Boogie; no acute intervention needed #chronic back pain -likely exacerbated by knees/OA -lumbar imaging: degenerative changes, wedging #Colon CA screening -has hx of R colon angiodysplasia, sigmoid diverticulosis -EGD, colonoscopy: Per GI: Multiple antral ulcers were found suggesting NSAID effect. Cecal and right colon angiodypslasias may also be contributing to the anemia and bleeding. Findings were discussed with Nell and I have advised a repeat EGD in 3 months to exclude a malignant gastric ulcer. No GI objections to discharge. Dr Potter will be covering. Will pursue Fibroscan to exclude DE related cirrhosis when she returns to the office. -f/u with GI, will need repeat EGD 3 mo -will follow labs -GI: Dr. Miles #Transaminitis -abd sono results noted above #morbid obesity -BMI 48.9 -needs to see bariatric sx as outpt - pt is interested will need to d/w PMD #HTN- controlled -c/w HCTZ -started on lisinopril #health maintenance -a1c WNL -per lipid panel, ASCVD risk 5.1% borderline. start w/ dietary mods, then repeat lipid panel in 3 mo as outpt to determine if will need statin Minutes to complete discharge: 45 <Beronica Singh - Last Filed: 04/25/19 15:46> Physical Exam: SUBJECTIVE: Patient seen and examined OBJECTIVE: Vital Signs Period Temp Pulse Resp BP Sys/Dahl Pulse Ox Last 24 Hr 97.4 F-98.7 F 77-85 17-20 83-146/41-74 96-97 PHYSICAL EXAM GENERAL: The patient is awake, alert, and fully oriented, in no acute distress. HEAD: Normal with no signs of trauma. EYES: PERRL, extraocular movements intact, sclera anicteric, conjunctiva clear. ENT: Ears normal, nares patent, oropharynx clear without exudates, moist mucous membranes. NECK: Trachea midline, full range of motion, supple. LUNGS: Breath sounds equal, clear to auscultation bilaterally, no wheezes, no crackles, no accessory muscle use. HEART: Regular rate and rhythm, S1, S2 without murmur, rub or gallop. ABDOMEN: Soft, nontender, nondistended, normoactive bowel sounds, no guarding, no rebound, no hepatosplenomegaly, no masses. EXTREMITIES: 2+ pulses, warm, well-perfused, no edema. NEUROLOGICAL: Cranial nerves II through XII grossly intact. Normal speech, gait not observed. PSYCH: Normal mood, normal affect. SKIN: Warm, dry, normal turgor, no rashes or lesions noted. LABS Laboratory Results - last 24 hr 04/24/19 08:30 Tumor Marker AFP 1.9 Tiss Transglutamin IgG < 2 Tiss Transglutamin IgA < 2 Hep C Ab Diagnostic 0.1 HOSPITAL COURSE: Date of Admission:04/18/19 Date of Discharge: 04/25/19 Patient seen and examined Seen and examined. Please see resident note for further historical information. I personally verified all the arteaga historical formation and exam findings. Personally in pretted imaging and diagnostics and reviewed appropriate results. I reviewed all labs and vital signs are per the resident note and EMR as documented. I agree with the above assessment and plan unless supplemented by myself and the following. <Flory Butler - Last Filed: 04/25/19 16:25> Discharge Summary Problems reviewed: Yes Reason For Visit: RIGHT KNEE PAIN Current Active Problems Abnormal liver function test (Acute) Altered bowel function (Acute) Anemia (Acute) Angiodysplasia of colon (Acute) Constipation (Acute) Diverticulosis (Acute) Fatty (change of) liver, not elsewhere classified (Acute) Gallstones (Acute) Morbid (severe) obesity due to excess calories (Acute) Occult blood in stools (Acute) - Home Medications Comprehensive Discharge Medication List: Ambulatory Orders Doxycycline Monohydrate [Monodox] 100 mg PO Q12H 03/01/18 Hydrochlorothiazide [Hctz -] 25 mg PO DAILY 03/02/18 Acetaminophen [Tylenol .Regular Strength -] 650 mg PO Q6H PRN tablet 04/25/19 Diclofenac Sodium [Voltaren] 100 gm TP DAILY #30 gel..gram. 04/25/19 Lisinopril [Prinivil] 20 mg PO DAILY tablet 04/25/19 Methyl Salicylate/Menthol Oint [Analgesic Lawrence -] 1 applic TP DAILY applic 02/02 Pantoprazole Sodium [Protonix -] 40 mg PO BID tablet.ec 04/25/19 <Beronica Singh - Last Filed: 04/25/19 15:46> Current Active Problems Abnormal liver function test (Acute) Altered bowel function (Acute) Anemia (Acute) Angiodysplasia of colon (Acute) Constipation (Acute) Diverticulosis (Acute) Fatty (change of) liver, not elsewhere classified (Acute) Gallstones (Acute) Morbid (severe) obesity due to excess calories (Acute) Occult blood in stools (Acute) - Home Medications Comprehensive Discharge Medication List: Ambulatory Orders Doxycycline Monohydrate [Monodox] 100 mg PO Q12H 03/01/18 Hydrochlorothiazide [Hctz -] 25 mg PO DAILY 03/02/18 Acetaminophen [Tylenol .Regular Strength -] 650 mg PO Q6H PRN tablet 04/25/19 Diclofenac Sodium [Voltaren] 100 gm TP DAILY #30 gel..gram. 04/25/19 Lisinopril [Prinivil] 20 mg PO DAILY tablet 04/25/19 Methyl Salicylate/Menthol Oint [Analgesic Lawrence -] 1 applic TP DAILY applic 02/02 Pantoprazole Sodium [Protonix -] 40 mg PO BID tablet.ec 04/25/19 <Flory Butler - Last Filed: 04/25/19 16:25> Condition: Improved - Instructions Diet, Activity, Other Instructions: You were in the hospital because you had trouble walking due to your osteoarthritis. You were seen by orthopedic surgery, and no acute intervention was needed. Your pain was treated and you worked with physical therapy. While you were here, you also had an EGD and colonoscopy done with your community mental health social worker. You improved and are being sent home. Medications You may take the following medications on your discharge: 1. Tylenol 650mg every six hours as needed for pain 2. Bengay ointment apply to both knees daily as needed 3. Diclofenac gel, apply daily to knees as needed 4. Lisinopril 20mg daily for high blood pressure 5. Protonix 40mg twice a day to help decrease stomach acidity You may continue your doxycycline (due to your antibiotic spacer) Please note: We have discontinued your diclofenac pills because those can cause GI bleeding. You should avoid all NSAID's. You can apply voltaren gel to your legs however, daily as needed. Capsaicin cream can also be used Testing The results of your scope were as follows: Multiple antral ulcers were found suggesting NSAID effect. Cecal and right colon angiodysplasias Follow up You will need to have a REPEAT EGD (upper endoscopy) done in 3 months to exclude any malignant gastric ulcers. You will also need a Fibroscan to exclude DE related cirrhosis Follow up appointments Please see the following doctors upon your discharge: -Dr. Bullard - primary care physician - 1 week to discuss your visit. Meanwhile, please see the doctor at [facility] -Your orthopedic doctor at [facility], Dr Jain, on 04-30-2019. -Dr. Potter (GI doctor) who works with Dr. Miles - 1 week Referrals: Dr. Cristobal [Other] - 04/30/19 Livan Ng MD [Primary Care Provider] - 1 Week Jenna Potter DO [Staff Physician] - 1 Week Disposition: SNF FACILITY This patient is new to me today: No Emergency Visit: No Critical Care patient: No - Discharge Referral Referred to [facility] Yes Physician Referral: Livan Bullard MD ([facility]) <Beronica Singh - Last Filed: 04/25/19 15:46> ATTENDING PHYSICIAN STATEMENT I saw and evaluated the patient. I reviewed the resident's note and discussed the case with the resident. I agree with the resident's findings and plan as documented. SUBJECTIVE: OBJECTIVE: ASSESSMENT AND PLAN: <Flory Butler - Last Filed: 04/25/19 16:25>
[2019-04-25] MEDS: LIDOCAINE 5% TOPICAL PATCH TP SCH ×2 (15:49)
[2019-04-25] MEDS: METHYL SALICYLATE/MENTHOL OINT 30 GM TUBE TP SCH (15:49)
[2019-04-25 15:51] VITALS: BP 113/48; PULSE 78
[2019-04-25] MEDS: HEPARIN NA (PORCINE) 5,000 UNITS/ML 1ML VIAL SQ SCH (19:07)
[2019-04-25 20:08] LABS: HEP B CORE AB, TOT Negative (Negative)
[2019-04-25] MEDS ORDERED: PANTOPRAZOLE 40 MG TABLET (FP) PO SCH (22:00)
[2019-04-26 05:08] LABS: ALPHA 2 MACROGLOBULINS,QN 124 mg/dL (110-276); ALT(SGPT)P5P 117 IU/L (0-40); CHOLESTEROL TOTAL 133 mg/dL (100-199); FIBROSIS SCORE 0.08 (0.00-0.21); GLUCOSE SERUM 89 mg/dL (65-99); HEIGHT 67 in (.); WEIGHT- 312 LBS (.)
--- NOTE | 2019-04-29 15:26 | PATH ---
Surgical Pathology Report Patient Name: TUNDE EDMOND Med. Rec. #: [id number] /Age/Gender: 1950 (Age: 69) / F Account: [id number] Location: [address] [place] [address]/[facility] Taken: 04/25/2019 Received: 04/28/2019 Reported: 04/29/2019 Physicians: Ralph Miles M.D. Specimen(s) Received A: ANTRUM B: CARDIA POLYP Clinical History Anemia, guaiac positive Postoperative diagnosis: Multiple gastric ulcers, gastric cardia polyp, diverticulosis, AVMs Final Diagnosis A. STOMACH, ANTRUM, BIOPSY: MODERATE CHRONIC ACTIVE GASTRITIS. IMMUNOSTAIN FOR H. PYLORI IS POSITIVE (MANY ORGANISMS). B. STOMACH, POLYP, BIOPSY: GASTRIC FUNDIC MUCOSA WITH MODERATE CHRONIC ACTIVE GASTRITIS AND FOVEOLAR GLAND HYPERPLASIA. NO ADENOMATOUS CHANGE IDENTIFIED. IMMUNOSTAIN FOR H. PYLORI IS POSITIVE (MODERATE TO MANY ORGANISMS). Electronically Signed Reid Doherty M.D. Gross Description A. Received in formalin, labeled "antrum biopsy" are 2 pearce, irregular portions of soft tissue measuring 0.3 and 0.4 cm. in greatest dimension. The specimens are submitted in toto in one cassette. B. Received in formalin, labeled "gastric polyp biopsy" is a pearce, irregular portion of soft tissue measuring 0.2 cm. in greatest dimension. The specimen is submitted in toto in one cassette. DL/04/28/2019 saudi/04/28/2019
== END 2019-04-25 19:45 | DRG 553 ==
LOC: JER 10:14 → JERBED 14:46 → J6S 15:30
PROVIDERS: ATTEND Internal Medicine
PROC: 0DB68ZX Excision of Stomach, Via Natural or Artificial Opening Endoscopic, Diagnostic (ICD-10-PCS; 2019-04-25)
PROC: 0DJD8ZZ Inspection of Lower Intestinal Tract, Via Natural or Artificial Opening Endoscopic (ICD-10-PCS; 2019-04-25)
PROC: 0DB68ZX Excision of Stomach, Via Natural or Artificial Opening Endoscopic, Diagnostic (ICD-10-PCS; principal; 2019-04-25 11:15)
DX: M17.11 Unilateral primary osteoarthritis, right knee (principal); K55.21 Angiodysplasia of colon with hemorrhage; Z68.42 Body mass index [BMI] 45.0-49.9, adult; M00.9 Pyogenic arthritis, unspecified; M25.561 Pain in right knee; M54.5 Low back pain; I10 Essential (primary) hypertension; K21.9 Gastro-esophageal reflux disease without esophagitis; E66.01 Morbid (severe) obesity due to excess calories; K57.90 Diverticulosis of intestine, part unspecified, without perforation or abscess without bleeding; K59.09 Other constipation; K76.0 Fatty (change of) liver, not elsewhere classified; R19.5 Other fecal abnormalities; M17.12 Unilateral primary osteoarthritis, left knee; D64.9 Anemia, unspecified; R94.5 Abnormal results of liver function studies; K80.20 Calculus of gallbladder without cholecystitis without obstruction; Z96.651 Presence of right artificial knee joint; Z78.9 Other specified health status; K25.9 Gastric ulcer, unspecified as acute or chronic, without hemorrhage or perforation; D17.79 Benign lipomatous neoplasm of other sites; Z79.1 Long term (current) use of non-steroidal anti-inflammatories (NSAID)
CPT/HCPCS: 36415; 72100-TC-FY; 73564-TC-RT-FY; 76705-TC; 80048; 80053; 80061; 80076; 82105; 82172; 82247; 82465; 82728; 82947; 82977; 83010; 83036; 83516; 83540; 83550; 83721; 83735; 83883; 84100; 84450; 84460; 84478; 85025; 85610; 85730; 86038; 86704; 86706; 86707; 86708; 86709; 86803; 86850; 86900; 86901; 87340; 88305-TC; 97116-GP; 97162-GP; 99284-25; J1644

== ENCOUNTER 2020-08-27 18:28 | Inpatient (IN) | payer OTHER ==
[2020-08-27] MEDS ORDERED: SODIUM CHLORIDE 0.9% 500 ML INFUS.BAG IV ONE (19:16)
[2020-08-27 20:38] LABS: BASO % 0.6 % (0-2.0); EOS % 2.6 % (0-4.5); HEMATOCRIT 42.7 % (32.4-45.2); HEMOGLOBIN 14.4 GM/dL (10.7-15.3); LYMPH % 21.7 % (8-40); MCH 32.1 pg (25.7-33.7); MCHC 33.7 g/dl (32.0-36.0); MEAN CELL VOLUME 95.3 fl (80-96); MEAN PLT VOLUME 10.4 fl (7.5-11.1); MONO % 6.3 % (3.8-10.2); NEUT % 68.8 % (42.8-82.8); PLATELET COUNT 163 K/MM3 (134-434); RBC 4.49 M/mm3 (3.60-5.2); RDW 14.6 % (11.6-15.6); WHITE BLOOD COUNT 7.6 K/mm3 (4.0-10.0)
[2020-08-27 20:44] LABS: VENOUS BASE EXCESS 0.7 mmol/L (-2-2); VENOUS O2 SATURATION 91.2 % (70-80); VENOUS PCO2 43.8 mmHg (38-52); VENOUS PH 7.39 (7.310-7.410)
[2020-08-27 20:51] LABS: CHLORIDE 97 mmol/L (98-107); SODIUM 130 mmol/L (136-145)
[2020-08-27 20:55] LABS: CALCIUM 9.6 mg/dL (8.5-10.1)
[2020-08-27 20:56] LABS: ANION GAP 9 MMOL/L (8-16); BLOOD UREA NITROGEN 23.3 mg/dL (7-18); CO2 25 mmol/L (21-32)
[2020-08-27 20:58] LABS: SGOT/AST 105 U/L (15-37); SGPT/ALT 155 U/L (13-61)
[2020-08-27 20:59] LABS: PHOSPHOROUS 3.1 mg/dL (2.5-4.9)
[2020-08-27 21:00] LABS: BILIRUBIN,TOTAL 0.8 mg/dL (0.2-1); TOT PROT 7.8 g/dl (6.4-8.2)
[2020-08-27 21:01] LABS: ALK PHOS 142 U/L (45-117)
[2020-08-27] MEDS ORDERED: INSULIN REGULAR HUMAN 100 UNITS/ML *VIAL IVPUSH ONE (21:05)
[2020-08-27 21:06] LABS: GLUCOSE,RANDOM 552 mg/dL (74-106)
[2020-08-27] MEDS ORDERED: INSULIN (NOVOLOG) ASPART 100 UNITS/ML 10ML VIAL SQ ONE (21:09)
[2020-08-27 21:37] LABS: URINE APPEARANCE CLEAR; URINE BILIRUBIN NEGATIVE (NEGATIVE); URINE COLOR YELLOW; URINE GLUCOSE (UA) 3+ (NEGATIVE); URINE KETONE NEGATIVE (NEGATIVE); URINE LEUK ESTERASE NEGATIVE (NEGATIVE); URINE NITRITE NEGATIVE (NEGATIVE); URINE PROTEIN NEGATIVE (NEGATIVE); URINE UROBILINOGEN 0.2 mg/dL (0.2-1.0)
[2020-08-28] MEDS ORDERED: traMADol HCL 50 MG TABLET PO ONE (01:08)
[2020-08-28] MEDS ORDERED: INSULIN (NOVOLOG) ASPART 100 UNITS/ML 10ML VIAL SQ ONE (02:15)
[2020-08-28] MEDS: INSULIN SLIDING SCALE (NOVOLOG) 1 VIAL SQ SCH ×5 (06:45→22:16)
[2020-08-28] MEDS ORDERED: INSULIN (LEVEMIR) 100 UNITS/ML UNITS SQ SCH ×3 (07:00→10:00)
[2020-08-28] MEDS ORDERED: INSULIN SLIDING SCALE (NOVOLOG) 1 VIAL SQ SCH ×2 (07:00→16:31)
[2020-08-28 07:59] VITALS: BMI 50.7
[2020-08-28 09:16] LABS: BASO % 0.9 % (0-2.0); EOS % 2.6 % (0-4.5); HEMATOCRIT 42.4 % (32.4-45.2); HEMOGLOBIN 14.4 GM/dL (10.7-15.3); LYMPH % 26.1 % (8-40); MCHC 33.9 g/dl (32.0-36.0); MEAN CELL VOLUME 94.5 fl (80-96); MEAN PLT VOLUME 10.3 fl (7.5-11.1); MONO % 6.2 % (3.8-10.2); NEUT % 64.2 % (42.8-82.8); PLATELET COUNT 169 K/MM3 (134-434); RBC 4.48 M/mm3 (3.60-5.2); RDW 14.4 % (11.6-15.6)
[2020-08-28] MEDS: LISINOPRIL 20 MG TABLET PO SCH (09:39)
[2020-08-28] MEDS: ENOXAPARIN NA (PORCINE) 40 MG/0.4 ML DISP.SYRIN SQ SCH (09:39)
[2020-08-28 09:56] LABS: TOT PROT 7.6 g/dl (6.4-8.2)
[2020-08-28 09:57] LABS: CREATININE 0.8 mg/dL (0.55-1.3)
[2020-08-28 09:58] LABS: CALCIUM 9.4 mg/dL (8.5-10.1)
[2020-08-28 09:59] LABS: BLOOD UREA NITROGEN 23.1 mg/dL (7-18)
[2020-08-28] MEDS ORDERED: FLU VACCINE (FLULAVAL) PF 60 MCG/0.5 ML SYRINGE 2020-2021 IM ONE (10:00)
[2020-08-28 10:02] LABS: PHOSPHOROUS 2.4 mg/dL (2.5-4.9)
[2020-08-28 10:03] LABS: BILIRUBIN,TOTAL 0.8 mg/dL (0.2-1)
[2020-08-28] MEDS: FLUTICASONE PROP 0.05% 16 GM NASAL SPRAY NS SCH ×2 (11:33→22:19)
[2020-08-28] MEDS: INSULIN (LEVEMIR) 100 UNITS/ML UNITS SQ SCH (22:15)
[2020-08-29] MEDS: INSULIN (LEVEMIR) 100 UNITS/ML UNITS SQ SCH (06:03)
[2020-08-29] MEDS: INSULIN SLIDING SCALE (NOVOLOG) 1 VIAL SQ SCH ×5 (06:04→21:11)
[2020-08-29 09:14] LABS: BASO % 0.5 % (0-2.0); EOS % 6.5 % (0-4.5); HEMATOCRIT 36.3 % (32.4-45.2); HEMOGLOBIN 11.8 GM/dL (10.7-15.3); LYMPH % 32.3 % (8-40); MCH 29.1 pg (25.7-33.7); MCHC 32.5 g/dl (32.0-36.0); MEAN CELL VOLUME 89.5 fl (80-96); MEAN PLT VOLUME 10.1 fl (7.5-11.1); MONO % 7.9 % (3.8-10.2); NEUT % 52.8 % (42.8-82.8); PLATELET COUNT 220 K/MM3 (134-434); RBC 4.06 M/mm3 (3.60-5.2); RDW 16.6 % (11.6-15.6); WHITE BLOOD COUNT 4.9 K/mm3 (4.0-10.0)
[2020-08-29 09:53] LABS: CALCIUM 9.2 mg/dL (8.5-10.1)
[2020-08-29 09:56] LABS: BILIRUBIN,TOTAL 0.9 mg/dL (0.2-1); CREATININE 0.5 mg/dL (0.55-1.3)
[2020-08-29 09:58] LABS: ALBUMIN 2.9 g/dl (3.4-5.0); TOT PROT 6.9 g/dl (6.4-8.2)
[2020-08-29 10:07] LABS: CHOLESTEROL 172 mg/dL (50-200)
[2020-08-29 10:09] LABS: LDL CHOLESTEROL (ONLY SJRH) 94 mg/dL (5-100)
[2020-08-29 10:10] LABS: TRIGLYCERIDES 78 mg/dL (0-150)
[2020-08-29 10:11] LABS: HDL CHOLESTEROL 53 mg/dL (40-60)
[2020-08-29] MEDS ORDERED: INSULIN (NOVOLOG) ASPART 100 UNITS/ML 10ML VIAL ONE ×4 (10:45→20:49)
[2020-08-29] MEDS: LISINOPRIL 20 MG TABLET PO SCH (10:51)
[2020-08-29] MEDS: ENOXAPARIN NA (PORCINE) 40 MG/0.4 ML DISP.SYRIN SQ SCH (10:53)
[2020-08-29] MEDS: FLUTICASONE PROP 0.05% 16 GM NASAL SPRAY NS SCH ×2 (10:53→21:12)
[2020-08-29] MEDS ORDERED: INSULIN (LEVEMIR) 100 UNITS/ML UNITS SQ SCH ×2 (11:15→22:00)
[2020-08-29] MEDS ORDERED: INSULIN (LEVEMIR) 100 UNITS/ML UNITS SQ ONE (20:48)
[2020-08-30] MEDS ORDERED: MELATONIN 5 MG TABLETS PO ONE (03:25)
[2020-08-30] MEDS: INSULIN SLIDING SCALE (NOVOLOG) 1 VIAL SQ SCH ×4 (06:15→21:44)
[2020-08-30] MEDS ORDERED: INSULIN (LEVEMIR) 100 UNITS/ML UNITS SQ SCH ×5 (07:00→22:00)
[2020-08-30 08:19] LABS: BASO % 0.5 % (0-2.0); EOS % 3.4 % (0-4.5); HEMATOCRIT 39.4 % (32.4-45.2); HEMOGLOBIN 13.3 GM/dL (10.7-15.3); LYMPH % 23.5 % (8-40); MCHC 33.8 g/dl (32.0-36.0); MEAN CELL VOLUME 94.8 fl (80-96); MEAN PLT VOLUME 10.2 fl (7.5-11.1); NEUT % 65.6 % (42.8-82.8); PLATELET COUNT 142 K/MM3 (134-434); RBC 4.16 M/mm3 (3.60-5.2); RDW 14.8 % (11.6-15.6); WHITE BLOOD COUNT 8.7 K/mm3 (4.0-10.0)
[2020-08-30 08:37] LABS: CALCIUM 9.2 mg/dL (8.5-10.1)
[2020-08-30 08:39] LABS: BLOOD UREA NITROGEN 32.8 mg/dL (7-18)
[2020-08-30 08:42] LABS: CREATININE 0.9 mg/dL (0.55-1.3)
[2020-08-30 08:44] LABS: TOT PROT 6.6 g/dl (6.4-8.2)
[2020-08-30 08:49] LABS: ALBUMIN 3.6 g/dl (3.4-5.0)
[2020-08-30] MEDS ORDERED: INSULIN (NOVOLOG) ASPART 100 UNITS/ML 10ML VIAL ONE (10:40)
[2020-08-30] MEDS: LISINOPRIL 20 MG TABLET PO SCH (10:52)
[2020-08-30] MEDS: ENOXAPARIN NA (PORCINE) 40 MG/0.4 ML DISP.SYRIN SQ SCH (10:54)
[2020-08-30] MEDS: FLUTICASONE PROP 0.05% 16 GM NASAL SPRAY NS SCH ×2 (10:55→21:36)
[2020-08-30] MEDS: metFORMIN HCL 500 MG TABLET (FP) PO SCH (16:27)
[2020-08-30] MEDS: Insulin (LOG) Aspart 100 UNITS/ML VIAL SQ SCH (17:23)
[2020-08-30] MEDS ORDERED: MELATONIN 5 MG TABLETS PO PRN (22:00)
[2020-08-31] MEDS: INSULIN SLIDING SCALE (NOVOLOG) 1 VIAL SQ SCH (06:24)
[2020-08-31] MEDS: Insulin (LOG) Aspart 100 UNITS/ML VIAL SQ SCH (06:24)
[2020-08-31] MEDS: metFORMIN HCL 500 MG TABLET (FP) PO SCH (06:25)
[2020-08-31] MEDS ORDERED: Insulin (LOG) Aspart 100 UNITS/ML VIAL SQ SCH (07:06)
[2020-08-31] MEDS ORDERED: INSULIN (NOVOLOG) ASPART 100 UNITS/ML 10ML VIAL ONE (09:32)
[2020-08-31] MEDS: FLUTICASONE PROP 0.05% 16 GM NASAL SPRAY NS SCH (10:09)
[2020-08-31] MEDS: LISINOPRIL 20 MG TABLET PO SCH (10:09)
[2020-08-31] MEDS: ENOXAPARIN NA (PORCINE) 40 MG/0.4 ML DISP.SYRIN SQ SCH (10:09)
[2020-08-31 12:50] VITALS: BP 125/55; PULSE 90; TEMP 97.7
== END 2020-08-31 11:28 | disposition home health service (06) | DRG 638 ==
LOC: JER 18:28 → JERBED 21:07 → J5S 08-28 00:46
PROVIDERS: ADMIT Hospitalist; ATTEND Internal Medicine
DX: E11.65 Type 2 diabetes mellitus with hyperglycemia (principal); Z68.43 Body mass index [BMI] 50.0-59.9, adult; I10 Essential (primary) hypertension; E66.01 Morbid (severe) obesity due to excess calories; K21.9 Gastro-esophageal reflux disease without esophagitis; Z96.651 Presence of right artificial knee joint; D64.9 Anemia, unspecified; R35.8 Other polyuria; R63.1 Polydipsia; K75.81 Nonalcoholic steatohepatitis (NASH); M25.569 Pain in unspecified knee; M17.0 Bilateral primary osteoarthritis of knee; K80.80 Other cholelithiasis without obstruction; E78.5 Hyperlipidemia, unspecified; G47.33 Obstructive sleep apnea (adult) (pediatric); K59.09 Other constipation; K57.90 Diverticulosis of intestine, part unspecified, without perforation or abscess without bleeding; R74.01 Elevation of levels of liver transaminase levels
CPT/HCPCS: 36415; 71045-TC-FY; 80053; 80061; 81003; 82010; 82803; 82962; 83036; 83721; 83735; 84100; 84439; 84443; 84484; 85025; 87086; 87804; 93005; 93010; 99285-25; C9803; U0003; U0005

== ENCOUNTER 2021-04-21 12:30 | Inpatient (IN) | payer OTHER ==
[2021-04-21 12:52] VITALS: BMI 47.0
[2021-04-21 15:24] LABS: BASO % 0.6 % (0-2.0); EOS % 3.9 % (0-4.5); LYMPH % 19.5 % (8-40); MCH 29.8 pg (25.7-33.7); MCHC 32.3 g/dl (32.0-36.0); MEAN PLT VOLUME 9.4 fl (7.5-11.1); MONO % 8.7 % (3.8-10.2); NEUT % 67.3 % (42.8-82.8); PLATELET COUNT 203 10^3/uL (134-434); RBC 3.69 M/mm3 (3.60-5.2); RDW 14.9 % (11.6-15.6); WHITE BLOOD COUNT 7.8 K/mm3 (4.0-10.0)
[2021-04-21 15:32] LABS: INR 1.07 (0.83-1.09); PROTHROMBIN TIME (PATIENT) 12.3 SEC (9.7-13.0)
[2021-04-21 15:35] LABS: ACTIVATED PTT 29.4 SECONDS (25.2-36.5)
[2021-04-21 15:41] LABS: CHLORIDE 105 mmol/L (98-107); SODIUM 140 mmol/L (136-145)
[2021-04-21 15:45] LABS: ALBUMIN 3.5 g/dl (3.4-5.0); ANION GAP 7 MMOL/L (8-16); BLOOD UREA NITROGEN 23.5 mg/dL (7-18); CALCIUM 9.1 mg/dL (8.5-10.1); CO2 28 mmol/L (21-32); GLUCOSE,RANDOM 107 mg/dL (74-106)
[2021-04-21 15:48] LABS: CHOLESTEROL 122 mg/dL (50-200); CREATININE 0.6 mg/dL (0.55-1.3); SGOT/AST 51 U/L (15-37); SGPT/ALT 79 U/L (13-61); TRIGLYCERIDES 116 mg/dL (0-150)
[2021-04-21 15:49] LABS: LDL CHOLESTEROL (ONLY SJRH) 60 mg/dL (5-100); TOT PROT 6.9 g/dl (6.4-8.2)
[2021-04-21 15:50] LABS: BILIRUBIN,TOTAL 0.3 mg/dL (0.2-1)
[2021-04-21 15:51] LABS: ALK PHOS 89 U/L (45-117); HDL CHOLESTEROL 45 mg/dL (40-60)
[2021-04-21 15:56] LABS: URINE APPEARANCE CLEAR; URINE BILIRUBIN NEGATIVE (NEGATIVE); URINE COLOR YELLOW; URINE GLUCOSE (UA) NEGATIVE (NEGATIVE); URINE KETONE NEGATIVE (NEGATIVE); URINE LEUK ESTERASE NEGATIVE (NEGATIVE); URINE NITRITE NEGATIVE (NEGATIVE); URINE PROTEIN NEGATIVE (NEGATIVE); URINE UROBILINOGEN 0.2 mg/dL (0.2-1.0)
[2021-04-21 16:02] LABS: EPI CELLS 3 /uL (0-25.1); HYALINE CASTS 0 /uL (0-3.1); URINE BACTERIA 4 /uL (0-1359); URINE WBC 4 /uL (0-25.8)
[2021-04-21] MEDS ORDERED: SODIUM CHLORIDE 1,000 ML IV SCH ×2 (17:45→18:10)
[2021-04-21] MEDS ORDERED: ENOXAPARIN NA (PORCINE) 40 MG/0.4 ML DISP.SYRIN SQ SCH (18:00)
[2021-04-21] MEDS ORDERED: ATORVASTATIN CA 80 MG TABLET (FP) PO SCH (22:00)
[2021-04-21] MEDS: INSULIN SLIDING SCALE (NOVOLOG) 1 VIAL SQ SCH (22:23)
[2021-04-21] MEDS ORDERED: ASPIRIN 81 MG CHEWABLE TABLETS ONE (22:25)
[2021-04-21] MEDS ORDERED: HYDROCHLOROTHIAZIDE 25 MG TABLET (FP) ONE (22:26)
[2021-04-21] MEDS ORDERED: GABAPENTIN 100 MG CAPSULE ONE (22:26)
[2021-04-21] MEDS ORDERED: POTASSIUM CHLORIDE TABS 20 MEQ TABLET.ER (FP) PO ONE (22:26)
[2021-04-21] MEDS ORDERED: ATORVASTATIN CA 80 MG TABLET (FP) ONE (22:26)
[2021-04-21] MEDS: ASPIRIN 81 MG CHEWABLE TABLETS PO SCH (22:27)
[2021-04-21] MEDS: GABAPENTIN 100 MG CAPSULE PO SCH (22:27)
[2021-04-21] MEDS ORDERED: ENOXAPARIN NA (PORCINE) 40 MG/0.4 ML DISP.SYRIN SQ ONE (22:27)
[2021-04-21] MEDS: HYDROCHLOROTHIAZIDE 25 MG TABLET (FP) PO SCH (22:27)
[2021-04-21] MEDS: POTASSIUM CHLORIDE TABS 20 MEQ TABLET.ER (FP) PO SCH (22:27)
[2021-04-22 08:09] LABS: INR 1.13 (0.83-1.09)
[2021-04-22] MEDS: INSULIN SLIDING SCALE (NOVOLOG) 1 VIAL SQ SCH ×3 (08:22→17:03)
[2021-04-22] MEDS: POTASSIUM CHLORIDE TABS 20 MEQ TABLET.ER (FP) PO SCH (09:09)
[2021-04-22] MEDS: GABAPENTIN 100 MG CAPSULE PO SCH (09:09)
[2021-04-22] MEDS: ASPIRIN 81 MG CHEWABLE TABLETS PO SCH (09:09)
[2021-04-22] MEDS: HYDROCHLOROTHIAZIDE 25 MG TABLET (FP) PO SCH (09:09)
[2021-04-22] MEDS: ENOXAPARIN NA (PORCINE) 40 MG/0.4 ML DISP.SYRIN SQ SCH ×2 (09:58→22:05)
[2021-04-22 12:41] LABS: BASO % 0.6 % (0-2.0); EOS % 3.6 % (0-4.5); HEMATOCRIT 34.7 % (32.4-45.2); HEMOGLOBIN 11.3 GM/dL (10.7-15.3); LYMPH % 18.5 % (8-40); MCH 29.5 pg (25.7-33.7); MCHC 32.5 g/dl (32.0-36.0); MEAN CELL VOLUME 90.7 fl (80-96); MEAN PLT VOLUME 8.6 fl (7.5-11.1); MONO % 6.7 % (3.8-10.2); NEUT % 70.6 % (42.8-82.8); PLATELET COUNT 205 10^3/uL (134-434); RBC 3.82 M/mm3 (3.60-5.2); RDW 14.5 % (11.6-15.6); WHITE BLOOD COUNT 8.5 K/mm3 (4.0-10.0)
[2021-04-22] MEDS ORDERED: ZINC OXIDE/PANTHENOL/VITAMIN E 56 GM TUBE TP PRN (12:54)
[2021-04-22 13:01] LABS: CALCIUM 9.3 mg/dL (8.5-10.1)
[2021-04-22 13:02] LABS: ALBUMIN 3.5 g/dl (3.4-5.0); BLOOD UREA NITROGEN 21.3 mg/dL (7-18); MAGNESIUM 2.3 mg/dL (1.8-2.4)
[2021-04-22 13:05] LABS: CREATININE 0.6 mg/dL (0.55-1.3); PHOSPHOROUS 3.7 mg/dL (2.5-4.9)
[2021-04-22 13:06] LABS: BILIRUBIN,TOTAL 0.6 mg/dL (0.2-1); TOT PROT 6.9 g/dl (6.4-8.2)
[2021-04-22] MEDS ORDERED: PT OWN MED DRAWER 7, Y5N ONE (14:20)
[2021-04-22] MEDS: PANTOPRAZOLE 20 MG TABLET PO SCH (14:23)
[2021-04-22] MEDS: LISINOPRIL 5 MG TABLET PO SCH (14:23)
[2021-04-22] MEDS: FLUTICASONE PROP 0.05% 16 GM NASAL SPRAY NS SCH (14:23)
[2021-04-22] MEDS ORDERED: FLU VACC QS2021-22(6MOS UP)/PF 60 MCG/0.5 ML SYRINGE IM ONE (15:20)
[2021-04-22] MEDS: traMADol HCL 50 MG TABLET PO PRN (22:07)
[2021-04-23] MEDS: INSULIN SLIDING SCALE (NOVOLOG) 1 VIAL SQ SCH ×4 (06:13→22:23)
[2021-04-23 07:14] LABS: BASO % 0.4 % (0-2.0); EOS % 4.9 % (0-4.5); HEMATOCRIT 34.6 % (32.4-45.2); HEMOGLOBIN 11.2 GM/dL (10.7-15.3); LYMPH % 21.2 % (8-40); MCH 29.5 pg (25.7-33.7); MCHC 32.5 g/dl (32.0-36.0); MEAN CELL VOLUME 90.9 fl (80-96); MEAN PLT VOLUME 9.2 fl (7.5-11.1); MONO % 6.3 % (3.8-10.2); NEUT % 67.2 % (42.8-82.8); PLATELET COUNT 190 10^3/uL (134-434); RBC 3.81 M/mm3 (3.60-5.2); RDW 14.3 % (11.6-15.6); WHITE BLOOD COUNT 7.8 K/mm3 (4.0-10.0)
[2021-04-23 07:30] LABS: ALBUMIN 3.5 g/dl (3.4-5.0); BLOOD UREA NITROGEN 20.4 mg/dL (7-18)
[2021-04-23 07:32] LABS: CREATININE 0.7 mg/dL (0.55-1.3)
[2021-04-23 07:33] LABS: BILIRUBIN,TOTAL 0.6 mg/dL (0.2-1); PHOSPHOROUS 3.6 mg/dL (2.5-4.9)
[2021-04-23 07:34] LABS: TOT PROT 6.6 g/dl (6.4-8.2)
[2021-04-23 07:36] LABS: MAGNESIUM 2.2 mg/dL (1.8-2.4)
[2021-04-23] MEDS: ASPIRIN 81 MG CHEWABLE TABLETS PO SCH (10:11)
[2021-04-23] MEDS: POTASSIUM CHLORIDE TABS 20 MEQ TABLET.ER (FP) PO SCH (10:11)
[2021-04-23] MEDS: GABAPENTIN 100 MG CAPSULE PO SCH (10:11)
[2021-04-23] MEDS: LISINOPRIL 5 MG TABLET PO SCH (10:11)
[2021-04-23] MEDS: HYDROCHLOROTHIAZIDE 25 MG TABLET (FP) PO SCH (10:11)
[2021-04-23] MEDS: FAMOTIDINE 20 MG TABLET PO SCH (10:11)
[2021-04-23] MEDS: PANTOPRAZOLE 20 MG TABLET PO SCH (10:11)
[2021-04-23] MEDS: FLUTICASONE PROP 0.05% 16 GM NASAL SPRAY NS SCH (10:12)
[2021-04-23] MEDS: ENOXAPARIN NA (PORCINE) 40 MG/0.4 ML DISP.SYRIN SQ SCH ×2 (10:12→22:18)
[2021-04-23] MEDS ORDERED: FUROSEMIDE 40 MG/4 ML INJECTABLE VIAL IVPUSH ONE (18:54)
[2021-04-23] MEDS: ATORVASTATIN CA 40 MG TABLET (FP) PO SCH (22:18)
[2021-04-23] MEDS: traMADol HCL 50 MG TABLET PO PRN (22:26)
[2021-04-24] MEDS: INSULIN SLIDING SCALE (NOVOLOG) 1 VIAL SQ SCH ×4 (06:18→22:41)
[2021-04-24 07:24] LABS: HEMATOCRIT 35.2 % (32.4-45.2); HEMOGLOBIN 11.9 GM/dL (10.7-15.3); MCH 30.7 pg (25.7-33.7); MCHC 33.9 g/dl (32.0-36.0); MEAN CELL VOLUME 90.5 fl (80-96); MEAN PLT VOLUME 9.1 fl (7.5-11.1); PLATELET COUNT 204 10^3/uL (134-434); RBC 3.88 M/mm3 (3.60-5.2); RDW 14.9 % (11.6-15.6); WHITE BLOOD COUNT 8.6 K/mm3 (4.0-10.0)
[2021-04-24 08:21] LABS: CALCIUM 8.9 mg/dL (8.5-10.1)
[2021-04-24 08:22] LABS: ALBUMIN 3.7 g/dl (3.4-5.0); BLOOD UREA NITROGEN 22.7 mg/dL (7-18)
[2021-04-24 08:23] LABS: MAGNESIUM 2.1 mg/dL (1.8-2.4)
[2021-04-24 08:25] LABS: CREATININE 0.8 mg/dL (0.55-1.3); PHOSPHOROUS 3.8 mg/dL (2.5-4.9)
[2021-04-24 08:26] LABS: BILIRUBIN,TOTAL 0.8 mg/dL (0.2-1); TOT PROT 7.1 g/dl (6.4-8.2)
[2021-04-24] MEDS: GABAPENTIN 100 MG CAPSULE PO SCH (10:16)
[2021-04-24] MEDS: FAMOTIDINE 20 MG TABLET PO SCH (10:16)
[2021-04-24] MEDS: PANTOPRAZOLE 20 MG TABLET PO SCH (10:17)
[2021-04-24] MEDS: HYDROCHLOROTHIAZIDE 25 MG TABLET (FP) PO SCH (10:17)
[2021-04-24] MEDS: FLUTICASONE PROP 0.05% 16 GM NASAL SPRAY NS SCH (10:17)
[2021-04-24] MEDS: ENOXAPARIN NA (PORCINE) 40 MG/0.4 ML DISP.SYRIN SQ SCH ×2 (10:17→21:50)
[2021-04-24] MEDS: POTASSIUM CHLORIDE TABS 20 MEQ TABLET.ER (FP) PO SCH (10:17)
[2021-04-24] MEDS: LISINOPRIL 5 MG TABLET PO SCH (10:17)
[2021-04-24] MEDS: ASPIRIN 81 MG CHEWABLE TABLETS PO SCH (10:17)
[2021-04-24] MEDS: AMINO ACIDS/PROTEIN HYDROLYS 30 ML LIQUID.PKT PO SCH ×2 (17:04→17:06)
[2021-04-24] MEDS: traMADol HCL 50 MG TABLET PO PRN (21:47)
[2021-04-24] MEDS: ATORVASTATIN CA 40 MG TABLET (FP) PO SCH (21:50)
[2021-04-25] MEDS: INSULIN SLIDING SCALE (NOVOLOG) 1 VIAL SQ SCH ×4 (06:19→23:09)
[2021-04-25 07:49] LABS: HEMATOCRIT 34.8 % (32.4-45.2); HEMOGLOBIN 11.4 GM/dL (10.7-15.3); MCH 29.9 pg (25.7-33.7); MCHC 32.9 g/dl (32.0-36.0); MEAN CELL VOLUME 90.8 fl (80-96); MEAN PLT VOLUME 8.5 fl (7.5-11.1); PLATELET COUNT 202 10^3/uL (134-434); RBC 3.83 M/mm3 (3.60-5.2); RDW 14.7 % (11.6-15.6); WHITE BLOOD COUNT 7.3 K/mm3 (4.0-10.0)
[2021-04-25 08:27] LABS: PHOSPHOROUS 3.6 mg/dL (2.5-4.9)
[2021-04-25 08:28] LABS: BILIRUBIN,TOTAL 0.7 mg/dL (0.2-1)
[2021-04-25 08:31] LABS: CREATININE 0.7 mg/dL (0.55-1.3)
[2021-04-25 08:37] LABS: BLOOD UREA NITROGEN 23.4 mg/dL (7-18)
[2021-04-25 08:41] LABS: ALBUMIN 3.7 g/dl (3.4-5.0)
[2021-04-25 08:51] LABS: MAGNESIUM 2.3 mg/dL (1.8-2.4)
[2021-04-25 08:53] LABS: CALCIUM 8.9 mg/dL (8.5-10.1)
[2021-04-25] MEDS: ENOXAPARIN NA (PORCINE) 40 MG/0.4 ML DISP.SYRIN SQ SCH ×2 (09:46→23:08)
[2021-04-25] MEDS: ASCORBIC ACID 250 MG TABLET (FP) PO SCH (09:47)
[2021-04-25] MEDS: FAMOTIDINE 20 MG TABLET PO SCH (09:47)
[2021-04-25] MEDS: GABAPENTIN 100 MG CAPSULE PO SCH (09:47)
[2021-04-25] MEDS: ASPIRIN 81 MG CHEWABLE TABLETS PO SCH (09:47)
[2021-04-25] MEDS: MULTIVITAMINS THER W-MINERALS COMBO TABLET (FP) PO SCH (09:47)
[2021-04-25] MEDS: POTASSIUM CHLORIDE TABS 20 MEQ TABLET.ER (FP) PO SCH (09:48)
[2021-04-25] MEDS: AMINO ACIDS/PROTEIN HYDROLYS 30 ML LIQUID.PKT PO SCH ×2 (09:48→17:37)
[2021-04-25] MEDS: HYDROCHLOROTHIAZIDE 25 MG TABLET (FP) PO SCH (09:48)
[2021-04-25] MEDS: LISINOPRIL 5 MG TABLET PO SCH (09:48)
[2021-04-25] MEDS: FLUTICASONE PROP 0.05% 16 GM NASAL SPRAY NS SCH (09:49)
[2021-04-25] MEDS: PANTOPRAZOLE 20 MG TABLET PO SCH (11:53)
[2021-04-25] MEDS: ATORVASTATIN CA 40 MG TABLET (FP) PO SCH (23:08)
[2021-04-25] MEDS: traMADol HCL 50 MG TABLET PO PRN (23:11)
[2021-04-26] MEDS: INSULIN SLIDING SCALE (NOVOLOG) 1 VIAL SQ SCH ×2 (06:51→13:58)
[2021-04-26 07:29] LABS: HEMOGLOBIN 11.3 GM/dL (10.7-15.3); MCH 30.2 pg (25.7-33.7); MCHC 33.2 g/dl (32.0-36.0); MEAN CELL VOLUME 90.9 fl (80-96); MEAN PLT VOLUME 8.9 fl (7.5-11.1); PLATELET COUNT 195 10^3/uL (134-434); RBC 3.74 M/mm3 (3.60-5.2); RDW 14.9 % (11.6-15.6); WHITE BLOOD COUNT 7.4 K/mm3 (4.0-10.0)
[2021-04-26 08:00] LABS: BLOOD UREA NITROGEN 23.3 mg/dL (7-18)
[2021-04-26 08:01] LABS: ALBUMIN 3.6 g/dl (3.4-5.0)
[2021-04-26 08:02] LABS: CALCIUM 8.8 mg/dL (8.5-10.1)
[2021-04-26 08:03] LABS: MAGNESIUM 2.2 mg/dL (1.8-2.4)
[2021-04-26 08:05] LABS: PHOSPHOROUS 3.5 mg/dL (2.5-4.9)
[2021-04-26 08:06] LABS: CREATININE 0.7 mg/dL (0.55-1.3)
[2021-04-26 08:07] LABS: BILIRUBIN,TOTAL 0.6 mg/dL (0.2-1)
[2021-04-26] MEDS: MULTIVITAMINS THER W-MINERALS COMBO TABLET (FP) PO SCH (10:42)
[2021-04-26] MEDS: ASPIRIN 81 MG CHEWABLE TABLETS PO SCH (10:42)
[2021-04-26] MEDS: POTASSIUM CHLORIDE TABS 20 MEQ TABLET.ER (FP) PO SCH (10:42)
[2021-04-26] MEDS: HYDROCHLOROTHIAZIDE 25 MG TABLET (FP) PO SCH (10:42)
[2021-04-26] MEDS: GABAPENTIN 100 MG CAPSULE PO SCH (10:42)
[2021-04-26] MEDS: FAMOTIDINE 20 MG TABLET PO SCH (10:42)
[2021-04-26] MEDS: ENOXAPARIN NA (PORCINE) 40 MG/0.4 ML DISP.SYRIN SQ SCH (10:43)
[2021-04-26] MEDS: ASCORBIC ACID 250 MG TABLET (FP) PO SCH (10:43)
[2021-04-26] MEDS: FLUTICASONE PROP 0.05% 16 GM NASAL SPRAY NS SCH (10:43)
[2021-04-26] MEDS: AMINO ACIDS/PROTEIN HYDROLYS 30 ML LIQUID.PKT PO SCH (10:43)
[2021-04-26] MEDS: LISINOPRIL 5 MG TABLET PO SCH (10:43)
[2021-04-26] MEDS ORDERED: amLODIPine BESYLATE 5 MG TABLET (FP) PO ONE (11:30)
[2021-04-26 15:28] VITALS: BP 144/75; PULSE 91; TEMP 98.2
== END 2021-04-26 17:13 | disposition home or self-care (01) | DRG 69 ==
LOC: JER 12:30 → JERBED 17:08 → J4W 04-22 05:48 → OBSVTOIN 04-22 13:45
PROVIDERS: ADMIT Internal Medicine; ATTEND Internal Medicine
DX: G45.9 Transient cerebral ischemic attack, unspecified (principal); I50.32 Chronic diastolic (congestive) heart failure; Z68.42 Body mass index [BMI] 45.0-49.9, adult; G81.91 Hemiplegia, unspecified affecting right dominant side; I47.1 Supraventricular tachycardia; E66.01 Morbid (severe) obesity due to excess calories; I10 Essential (primary) hypertension; E11.9 Type 2 diabetes mellitus without complications; R74.01 Elevation of levels of liver transaminase levels; K76.0 Fatty (change of) liver, not elsewhere classified
CPT/HCPCS: 36415; 70450-TC; 70551-TC; 71045-TC-FY; 80053; 80061; 81003; 82550; 82553; 82962; 83036; 83735; 84100; 84439; 84443; 84484; 85025; 85027; 85610; 85730; 86850; 86900; 86901; 90686; 93005; 93010; 93306-TC; 93880-TC; 93971-TC; 97162-GP; 99285-25; C9803; G0008; G0378; U0003; U0005

== ENCOUNTER 2022-11-17 12:10 | Inpatient (IN) | payer OTHER ==
[2022-11-17 13:54] LABS: BASO % 0.8 % (0-2.0); EOS % 4.1 % (0-4.5); HEMATOCRIT 36.4 % (32.4-45.2); HEMOGLOBIN 11.9 GM/dL (10.7-15.3); LYMPH % 18.6 % (8-40); MCH 28.2 pg (25.7-33.7); MCHC 32.8 g/dl (32.0-36.0); MEAN CELL VOLUME 86.1 fl (80-96); MEAN PLT VOLUME 8.4 fl (7.5-11.1); NEUT % 69.5 % (42.8-82.8); PLATELET COUNT 202 10^3/uL (134-434); RBC 4.22 M/mm3 (3.60-5.2); RDW 17.2 % (11.6-15.6); WHITE BLOOD COUNT 8.4 K/mm3 (4.0-10.0)
[2022-11-17 13:59] LABS: INR 1.06 (0.83-1.09); PROTHROMBIN TIME (PATIENT) 12.3 SEC (9.7-13.0)
[2022-11-17 14:02] LABS: ACTIVATED PTT 32.5 SECONDS (25.2-36.5)
[2022-11-17 14:34] LABS: CALCIUM 9.8 mg/dL (8.5-10.1)
[2022-11-17 14:37] LABS: CREATININE 0.7 mg/dL (0.55-1.3)
[2022-11-17 14:40] LABS: ALBUMIN 3.5 g/dl (3.4-5.0); BILIRUBIN,TOTAL 0.6 mg/dL (0.2-1); BLOOD UREA NITROGEN 20.1 mg/dL (7-18); POTASSIUM 4.3 mmol/L (3.5-5.1); TOT PROT 7.3 g/dl (6.4-8.2)
[2022-11-17] MEDS ORDERED: FUROSEMIDE 40 MG/4 ML INJECTABLE VIAL IVPUSH ONE (18:16)
[2022-11-17 18:53] VITALS: BMI 51.0
[2022-11-17] MEDS ORDERED: METOPROLOL TARTRATE 5 MG/5 ML VIAL IVPUSH PRN (19:56)
[2022-11-17] MEDS ORDERED: INSULIN (NOVOLOG) ASPART 100 UNITS/ML 10ML VIAL ONE (21:03)
[2022-11-17] MEDS: HYDROCHLOROTHIAZIDE 12.5 MG CAPSULE (FP) PO SCH (21:49)
[2022-11-17] MEDS: MELATONIN 5 MG TABLETS PO SCH (21:49)
[2022-11-17] MEDS: ATORVASTATIN CA 40 MG TABLET (FP) PO SCH (21:49)
[2022-11-17] MEDS: ENOXAPARIN NA (PORCINE) 40 MG/0.4 ML DISP.SYRIN SQ SCH (21:49)
[2022-11-17] MEDS: GABAPENTIN 300 MG CAPSULE PO SCH (21:50)
[2022-11-17] MEDS: INSULIN SLIDING SCALE (NOVOLOG) 1 VIAL SQ SCH (21:50)
[2022-11-18] MEDS ORDERED: METOPROLOL TARTRATE 5 MG/5 ML VIAL IVPUSH ONE (01:53)
[2022-11-18] MEDS ORDERED: dilTIAZem HCL 50 MG/10 ML - 10 ML VIAL IVPUSH ONE (03:34)
[2022-11-18] MEDS: GABAPENTIN 300 MG CAPSULE PO SCH ×3 (06:38→22:34)
[2022-11-18] MEDS: INSULIN SLIDING SCALE (NOVOLOG) 1 VIAL SQ SCH ×4 (06:38→22:34)
[2022-11-18 07:41] LABS: BASO % 0.4 % (0-2.0); EOS % 3.5 % (0-4.5); HEMATOCRIT 37.4 % (32.4-45.2); LYMPH % 19.4 % (8-40); MCH 28.2 pg (25.7-33.7); MCHC 32.2 g/dl (32.0-36.0); MEAN CELL VOLUME 87.5 fl (80-96); MEAN PLT VOLUME 8.5 fl (7.5-11.1); MONO % 6.3 % (3.8-10.2); NEUT % 70.4 % (42.8-82.8); PLATELET COUNT 223 10^3/uL (134-434); RBC 4.28 M/mm3 (3.60-5.2); WHITE BLOOD COUNT 9.6 K/mm3 (4.0-10.0)
[2022-11-18 08:12] LABS: TOT PROT 7.1 g/dl (6.4-8.2)
[2022-11-18 08:16] LABS: BILIRUBIN,TOTAL 0.8 mg/dL (0.2-1); PHOSPHOROUS 3.8 mg/dL (2.5-4.9)
[2022-11-18 08:17] LABS: ALBUMIN 3.6 g/dl (3.4-5.0); CALCIUM 9.6 mg/dL (8.5-10.1)
[2022-11-18 08:18] LABS: CREATININE 0.7 mg/dL (0.55-1.3); MAGNESIUM 1.9 mg/dL (1.8-2.4)
[2022-11-18] MEDS ORDERED: PATIENT'S OWN MEDICATION (NON-FORMULARY) (Meloxicam 15 MG Tablet) PO SCH (10:00)
[2022-11-18] MEDS ORDERED: amLODIPine BESYLATE 5 MG TABLET (FP) PO SCH (10:00)
[2022-11-18] MEDS: ENOXAPARIN NA (PORCINE) 40 MG/0.4 ML DISP.SYRIN SQ SCH (10:26)
[2022-11-18] MEDS: FAMOTIDINE 40 MG TABLET PO SCH (10:27)
[2022-11-18] MEDS: HYDROCHLOROTHIAZIDE 12.5 MG CAPSULE (FP) PO SCH ×2 (10:27→22:34)
[2022-11-18] MEDS: APIXABAN 5 MG TABLET PO SCH ×2 (13:22→22:34)
[2022-11-18 17:34] LABS: N-TERMINAL BNP 57.7 pg/ml (5-125)
[2022-11-18] MEDS: METOPROLOL TARTRATE 5 MG/5 ML VIAL IVPUSH PRN (18:22)
[2022-11-18] MEDS: ATORVASTATIN CA 40 MG TABLET (FP) PO SCH (22:34)
[2022-11-18] MEDS: MELATONIN 5 MG TABLETS PO SCH (22:34)
[2022-11-19] MEDS: GABAPENTIN 300 MG CAPSULE PO SCH ×3 (05:26→23:06)
[2022-11-19] MEDS: INSULIN SLIDING SCALE (NOVOLOG) 1 VIAL SQ SCH ×4 (06:50→23:07)
[2022-11-19] MEDS: METOPROLOL TARTRATE 5 MG/5 ML VIAL IVPUSH PRN (08:30)
[2022-11-19] MEDS: FAMOTIDINE 40 MG TABLET PO SCH (09:24)
[2022-11-19] MEDS: APIXABAN 5 MG TABLET PO SCH ×2 (09:24→23:07)
[2022-11-19] MEDS: HYDROCHLOROTHIAZIDE 12.5 MG CAPSULE (FP) PO SCH ×2 (09:24→23:05)
[2022-11-19 12:45] LABS: BASO % 0.5 % (0-2.0); EOS % 3.9 % (0-4.5); HEMATOCRIT 38.3 % (32.4-45.2); LYMPH % 16.2 % (8-40); MCH 27.8 pg (25.7-33.7); MCHC 31.5 g/dl (32.0-36.0); MEAN CELL VOLUME 88.4 fl (80-96); MEAN PLT VOLUME 8.7 fl (7.5-11.1); MONO % 5.5 % (3.8-10.2); NEUT % 73.9 % (42.8-82.8); PLATELET COUNT 202 10^3/uL (134-434); RBC 4.33 M/mm3 (3.60-5.2); RDW 16.7 % (11.6-15.6); WHITE BLOOD COUNT 9.5 K/mm3 (4.0-10.0)
[2022-11-19 13:06] LABS: CALCIUM 9.3 mg/dL (8.5-10.1)
[2022-11-19 13:08] LABS: ALBUMIN 3.6 g/dl (3.4-5.0); BLOOD UREA NITROGEN 16.5 mg/dL (7-18)
[2022-11-19 13:11] LABS: BILIRUBIN,TOTAL 0.6 mg/dL (0.2-1); CREATININE 0.6 mg/dL (0.55-1.3); PHOSPHOROUS 3.7 mg/dL (2.5-4.9); TOT PROT 7.2 g/dl (6.4-8.2)
[2022-11-19] MEDS: METOPROLOL TARTRATE 25 MG TABLET (FP) PO SCH ×2 (15:46→23:05)
[2022-11-19] MEDS: ATORVASTATIN CA 40 MG TABLET (FP) PO SCH (23:04)
[2022-11-19] MEDS: MELATONIN 5 MG TABLETS PO SCH (23:05)
[2022-11-20] MEDS: METOPROLOL TARTRATE 25 MG TABLET (FP) PO SCH ×3 (03:23→17:57)
[2022-11-20] MEDS: INSULIN SLIDING SCALE (NOVOLOG) 1 VIAL SQ SCH ×4 (06:01→22:08)
[2022-11-20] MEDS: GABAPENTIN 300 MG CAPSULE PO SCH ×3 (06:03→22:04)
[2022-11-20 08:16] LABS: BASO % 0.4 % (0-2.0); EOS % 4.5 % (0-4.5); HEMATOCRIT 37.7 % (32.4-45.2); HEMOGLOBIN 12.6 GM/dL (10.7-15.3); LYMPH % 18.6 % (8-40); MCH 28.7 pg (25.7-33.7); MCHC 33.5 g/dl (32.0-36.0); MEAN CELL VOLUME 85.9 fl (80-96); MEAN PLT VOLUME 8.4 fl (7.5-11.1); MONO % 6.3 % (3.8-10.2); NEUT % 70.2 % (42.8-82.8); PLATELET COUNT 224 10^3/uL (134-434); RBC 4.39 M/mm3 (3.60-5.2); RDW 17.1 % (11.6-15.6)
[2022-11-20 08:34] LABS: BLOOD UREA NITROGEN 18.1 mg/dL (7-18); CALCIUM 9.4 mg/dL (8.5-10.1)
[2022-11-20 08:36] LABS: CREATININE 0.7 mg/dL (0.55-1.3); MAGNESIUM 2.1 mg/dL (1.8-2.4); PHOSPHOROUS 3.8 mg/dL (2.5-4.9)
[2022-11-20 08:37] LABS: ALBUMIN 3.6 g/dl (3.4-5.0)
[2022-11-20 08:38] LABS: BILIRUBIN,TOTAL 0.8 mg/dL (0.2-1); TOT PROT 7.3 g/dl (6.4-8.2)
[2022-11-20] MEDS: APIXABAN 5 MG TABLET PO SCH ×2 (09:04→22:04)
[2022-11-20] MEDS: HYDROCHLOROTHIAZIDE 12.5 MG CAPSULE (FP) PO SCH ×2 (09:04→22:04)
[2022-11-20] MEDS: FAMOTIDINE 40 MG TABLET PO SCH (09:04)
[2022-11-20] MEDS: ATORVASTATIN CA 40 MG TABLET (FP) PO SCH (22:04)
[2022-11-20] MEDS: MELATONIN 5 MG TABLETS PO SCH (22:04)
[2022-11-21] MEDS: METOPROLOL TARTRATE 25 MG TABLET (FP) PO SCH ×3 (00:15→12:29)
[2022-11-21] MEDS: INSULIN SLIDING SCALE (NOVOLOG) 1 VIAL SQ SCH ×4 (06:30→21:45)
[2022-11-21] MEDS: GABAPENTIN 300 MG CAPSULE PO SCH ×3 (06:45→21:40)
[2022-11-21 08:39] LABS: BASO % 0.6 % (0-2.0); EOS % 4.1 % (0-4.5); HEMATOCRIT 41.5 % (32.4-45.2); HEMOGLOBIN 13.1 GM/dL (10.7-15.3); LYMPH % 15.2 % (8-40); MCH 27.9 pg (25.7-33.7); MCHC 31.5 g/dl (32.0-36.0); MEAN CELL VOLUME 88.6 fl (80-96); MEAN PLT VOLUME 9.2 fl (7.5-11.1); MONO % 5.3 % (3.8-10.2); NEUT % 74.8 % (42.8-82.8); PLATELET COUNT 245 10^3/uL (134-434); RBC 4.69 M/mm3 (3.60-5.2); RDW 17.3 % (11.6-15.6); WHITE BLOOD COUNT 10.8 K/mm3 (4.0-10.0)
[2022-11-21 08:57] LABS: POTASSIUM 4.1 mmol/L (3.5-5.1)
[2022-11-21 09:01] LABS: BLOOD UREA NITROGEN 17.7 mg/dL (7-18); CALCIUM 9.9 mg/dL (8.5-10.1); MAGNESIUM 2.3 mg/dL (1.8-2.4)
[2022-11-21 09:04] LABS: CREATININE 0.6 mg/dL (0.55-1.3); PHOSPHOROUS 3.7 mg/dL (2.5-4.9)
[2022-11-21 09:05] LABS: BILIRUBIN,TOTAL 0.8 mg/dL (0.2-1); TOT PROT 7.9 g/dl (6.4-8.2)
[2022-11-21] MEDS: HYDROCHLOROTHIAZIDE 12.5 MG CAPSULE (FP) PO SCH ×2 (10:39→21:39)
[2022-11-21] MEDS: FAMOTIDINE 40 MG TABLET PO SCH (10:39)
[2022-11-21] MEDS: APIXABAN 5 MG TABLET PO SCH ×2 (10:39→21:39)
[2022-11-21] MEDS: MELATONIN 5 MG TABLETS PO SCH (21:40)
[2022-11-21] MEDS: ATORVASTATIN CA 40 MG TABLET (FP) PO SCH (21:40)
[2022-11-22] MEDS: GABAPENTIN 300 MG CAPSULE PO SCH ×3 (06:25→22:16)
[2022-11-22] MEDS: INSULIN SLIDING SCALE (NOVOLOG) 1 VIAL SQ SCH ×4 (06:25→22:07)
[2022-11-22 08:00] LABS: BASO % 0.5 % (0-2.0); EOS % 3.2 % (0-4.5); HEMATOCRIT 41.9 % (32.4-45.2); HEMOGLOBIN 13.3 GM/dL (10.7-15.3); LYMPH % 11.1 % (8-40); MCH 27.7 pg (25.7-33.7); MCHC 31.6 g/dl (32.0-36.0); MEAN CELL VOLUME 87.7 fl (80-96); MEAN PLT VOLUME 9.2 fl (7.5-11.1); MONO % 5.5 % (3.8-10.2); NEUT % 79.7 % (42.8-82.8); PLATELET COUNT 243 10^3/uL (134-434); RBC 4.78 M/mm3 (3.60-5.2); RDW 16.7 % (11.6-15.6); WHITE BLOOD COUNT 12.8 K/mm3 (4.0-10.0)
[2022-11-22 08:41] LABS: POTASSIUM 4.5 mmol/L (3.5-5.1)
[2022-11-22 08:49] LABS: ALBUMIN 3.9 g/dl (3.4-5.0); BLOOD UREA NITROGEN 17.5 mg/dL (7-18); MAGNESIUM 2.2 mg/dL (1.8-2.4)
[2022-11-22 08:51] LABS: CREATININE 0.6 mg/dL (0.55-1.3); PHOSPHOROUS 4.1 mg/dL (2.5-4.9); TOT PROT 7.9 g/dl (6.4-8.2)
[2022-11-22] MEDS: HYDROCHLOROTHIAZIDE 12.5 MG CAPSULE (FP) PO SCH ×2 (09:11→22:15)
[2022-11-22] MEDS: FAMOTIDINE 40 MG TABLET PO SCH (09:11)
[2022-11-22] MEDS: APIXABAN 5 MG TABLET PO SCH ×2 (09:11→22:15)
[2022-11-22] MEDS ORDERED: FUROSEMIDE 40 MG/4 ML INJECTABLE VIAL IVPUSH ONE (12:45)
[2022-11-22 14:42] LABS: PH,URINE 6.5 (5.0-8.0); URINE APPEARANCE CLEAR; URINE BILIRUBIN NEGATIVE (NEGATIVE); URINE COLOR YELLOW; URINE GLUCOSE (UA) NEGATIVE (NEGATIVE); URINE KETONE NEGATIVE (NEGATIVE); URINE LEUK ESTERASE NEGATIVE (NEGATIVE); URINE NITRITE NEGATIVE (NEGATIVE); URINE PROTEIN NEGATIVE (NEGATIVE)
[2022-11-22 14:48] LABS: EPI CELLS 10 /uL (0-25.1); HYALINE CASTS 0 /uL (0-3.1); URINE BACTERIA 63 /uL (0-1359); URINE RBC 42 /uL (0-23.9); URINE WBC 2 /uL (0-25.8)
[2022-11-22] MEDS: ATORVASTATIN CA 40 MG TABLET (FP) PO SCH (22:15)
[2022-11-22] MEDS: MELATONIN 5 MG TABLETS PO SCH (22:16)
[2022-11-23] MEDS: GABAPENTIN 300 MG CAPSULE PO SCH (05:12)
[2022-11-23] MEDS: INSULIN SLIDING SCALE (NOVOLOG) 1 VIAL SQ SCH (06:01)
[2022-11-23] MEDS: APIXABAN 5 MG TABLET PO SCH (09:40)
[2022-11-23] MEDS: HYDROCHLOROTHIAZIDE 12.5 MG CAPSULE (FP) PO SCH (09:40)
[2022-11-23] MEDS: FAMOTIDINE 40 MG TABLET PO SCH (09:40)
[2022-11-23 11:57] VITALS: BP 152/64; PULSE 73; RESP 24; TEMP 97.8
== END 2022-11-23 12:35 | disposition home health service (06) | DRG 309 ==
LOC: JER 12:10 → JERBED 15:30 → J4W 17:38 → OBSVTOIN 11-19 14:43
PROVIDERS: ADMIT Internal Medicine; ATTEND Internal Medicine
DX: I48.0 Paroxysmal atrial fibrillation (principal); I11.0 Hypertensive heart disease with heart failure; I50.32 Chronic diastolic (congestive) heart failure; Z68.42 Body mass index [BMI] 45.0-49.9, adult; G82.20 Paraplegia, unspecified; G81.91 Hemiplegia, unspecified affecting right dominant side; E78.5 Hyperlipidemia, unspecified; K21.9 Gastro-esophageal reflux disease without esophagitis; K80.20 Calculus of gallbladder without cholecystitis without obstruction; E11.9 Type 2 diabetes mellitus without complications; E03.9 Hypothyroidism, unspecified; E66.01 Morbid (severe) obesity due to excess calories; K76.0 Fatty (change of) liver, not elsewhere classified; D64.9 Anemia, unspecified; M54.9 Dorsalgia, unspecified; Z86.73 Personal history of transient ischemic attack (TIA), and cerebral infarction without residual deficits; Z74.01 Bed confinement status
CPT/HCPCS: 36415; 70450-TC; 71045-TC-FY; 76705-TC; 80053; 80061; 81003; 82962; 83036; 83690; 83735; 83880; 84100; 84436; 84439; 84443; 84484; 85025; 85610; 85730; 87086; 87186; 93005; 93010; 93306-TC; 97162-GP; 99285-25; G0378